=== PATIENT | female | born 1965 | race Caucasian/White ===

== ENCOUNTER → 2018-05-03 16:00 | Outpatient (CLI) | payer MEDICAID, SELFPAY ==
[2018-05-10 10:00] LABS: HPV Reflexed? NOT INDICATED
== END ==
PROVIDERS: Family Provider Family Medicine; PCP Family Medicine; Visit Provider Family Medicine
DX: Z12.4 Encounter for screening for malignant neoplasm of cervix (principal)
CPT/HCPCS: 88175; G0145

== ENCOUNTER → 2018-05-07 06:49 | Outpatient (CLI) | payer MEDICAID, SELFPAY ==
[2018-05-07 07:14] LABS: Absolute Lymphocyte Count 1.78 X10^3/ul (0.83-4.51); Absolute Neutrophil Count 6.5 X10^3/uL (2.0-7.7); Basophil# 0.02 X10^3/uL; Basophil% 0.2 % (0-1); Eosinophil# 0.28 X10^3/uL; Eosinophils% 3.1 % (0-5); Hematocrit 39.4 % (37-47); Hemoglobin 12.3 g/dl (12.0-15.0); Lymphocyte # 1.78 X10^3/ul (4.0); Lymphocyte % 19.6 % (19-41); Mean Corp Hgb Conc 31.2 g/gl (32-36); Mean Corpuscular Hgb 25.4 pg (27.0-32.0); Mean Corpuscular Volume 81.2 fL (81-99); Mean Platelet Vol. 9.1 fl (6.2-12.0); Monocyte# 0.55 X10^3/uL; Neutrophil # 6.45 X10^3/uL (2.7-7.7); Neutrophil % 70.9 % (47-70); Platelet Count 314 K/mm3 (150-450); RBC Distribution Width CV 15.3 % (11.6-14.6); RBC Distribution Width SD 44.6 fl (35.1-43.9); Red Blood Count 4.85 M/mm3 (4.2-5.4); White Blood Count 9.1 K/mm3 (4.4-11.0)
[2018-05-07 07:18] LABS: POSITIVE COUNT NO; POSITIVE DIFFERENTIAL NO; POSITIVE MORPHOLOGY NO
[2018-05-07 07:52] LABS: ALB/GLOB Ratio 0.7 RATIO (0.9-2.4); AST(SGOT) 9 U/L (15-37); Alanine Aminotransfer ALT/SGPT 16 U/L (13-56); Albumin, Serum 3.3 g/dL (3.2-5.0); Alkaline Phosphatase 58 U/L (45-117); Anion Gap 6 (5-15); BUN 15 mg/dL (7-18); BUN/Creat Ratio 19.9 RATIO (10-20); Calcium,Total 8.8 mg/dL (8.5-10.1); Chloride 108 mmol/L (98-107); Cholesterol 150 mg/dL (200); Creatinine, Serum 0.75 mg/dL (0.55-1.02); EST Glomerular Filtration Rate 85 mL/min (>60); Est Glom Filt Rate - Afr Amer 103 mL/min (>60); Globulin 4.7 g/dL (2.2-4.2); Glucose 88 mg/dL (74-106); High Density Lipoprotein 44 mg/dL; Iron 48 ug/dL (50-170); Potassium 4.1 mmol/L (3.5-5.1); Sodium Level 142 mmol/L (136-145); Thyroid Stim Hormone (TSH) 0.64 uIU/mL (0.358-3.74); Triglycerides 78 mg/dL; Very Low Density Lipoprotein 16 mg/dL (5-40)
[2018-05-07 08:45] LABS: Hemoglobin A1c 5.5 % (4.2-6.3)
[2018-05-07 10:01] LABS: Vitamin B12 1708 pg/mL (211-911); Vitamin D,25 Hydroxy 40.6 ng/mL (29.95-100.01)
== END ==
PROVIDERS: Family Provider Family Medicine; PCP Family Medicine; Visit Provider Family Medicine
DX: E03.9 Hypothyroidism, unspecified (principal); R53.83 Other fatigue; E78.5 Hyperlipidemia, unspecified; E53.8 Deficiency of other specified B group vitamins; R73.01 Impaired fasting glucose; G57.52 Tarsal tunnel syndrome, left lower limb; M76.71 Peroneal tendinitis, right leg; M76.61 Achilles tendinitis, right leg; Z51.81 Encounter for therapeutic drug level monitoring
CPT/HCPCS: 36415; 80053; 80061; 82306; 82607; 83036; 83540; 84443; 85025; 97110; 97140

== ENCOUNTER 2018-05-28 08:30 | Outpatient (RCR) | payer MEDICAID, SELFPAY ==
--- NOTE | 2018-04-30 13:07 | HP.PTEVAL_ITS ---
Patient's Visit Information JOHN PÉREZ is a 52 year old F referred to Physical Therapy by Yisel Leija DPM with a diagnosis of L tarsal tunnel, R peroneal and achilles. Date of Evaluation: 04/30/18 Physical Therapist: Ash Curtis DPT, OC - Visit Plan Frequency: 2-3x /Week Duration: 2 Months Plan: 2-3x/week for 6-8 weeks as needed. 1. ROM R ankle, gastroc stretching, peroneal stretching: B ankle strength with TB: STM R ankle and foot: Monitor WB position of R heel(it is in varus and i put a wedge in the lateral heel), TENS with ice as needed. Progress HEP. Also showed her nerve flossing of L peroneals and post LE nerves today, monitor the tolerance and progress. - Subjective Subjective: R pain near achilles and peroneals and sometimes to medial ankle, been there for one month, started conciding with walking TM at [facility] possibly. No original injury. Pain is more lateral 4/10, but gets up to [phone] at end of day. Better at rest but not completely, stilla toothache. L toes numb last 3 toes for years. Had surgery 10 years ago and it has been like that since and has not changed. Has some pain shooting pain intermittently. Sleep: L foot will keep her up sometimes at night but rare. 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 R leg worse after work. Has orthotics for 3 weeks which did not help. Got brace last week and it is hot and she is weaning onto it. Had it on for a long time yesterday and it made foot worse digging into posterior pain. Activities are normal, just worse. Steps really bother R foot. - Pain R achilles/peroneal Pain Intensity (Out of 10): 1 Pain Intensity Range: 1, 9 - Objective Walks I on firm surface with just slight R antalgia today. Varus apparent R heel with more WB on lateral surface, avoids pushoff with R>L. Dons and doffs brace I. Orthotics in place and approriate. Tender to palpation R space between achilles lateral adn peroneals max and some noticeable swelling. AROM R ankle: DF -3 degrees with knees straight and -1 with knee bent. Painful with inv and ev R, PF is good. L AROM 5 degree DF, 55 PF, ev/inv 15 and 25. R Strength R DF 4-, ev/inv 4- with pain, PF 4/5 with pain WB lateral WB. Strength L ankle 4+/5. Sensation diminished L lateral foot into toes. - Goals Goal 1:: Full R ankle aROM without pain Goal Time Frame: 4-6 Weeks Goal 2:: Decrease pain R to 2/10 at worst, No sharp pains in R ankles for one week. Goal Time Frame: 6-8 Weeks Goal 3:: I approp HEp to limit future problems. Goal Time Frame: 6-8 Weeks Goal 4:: Work without increasing pain Goal Time Frame: 6-8 Weeks - Rehabilitation Potential Physical Therapy Diagnosis: R achilles tendonitis, peroneal involvement, L tarsal tunnel. Rehabilitation Potential: Fair - Anticipated Interventions Patient/Client Instruction: Educate patient on: Condition, Plan of Care, Risk Factors For the Purpose of:: To decrease pain, To decrease swelling/inflammation, To increase ROM, To improve performance and independence with ADL's, To improve ability of physical actions for home/community/work/leisure Therapeutic Exercise to Include: Strength training, Flexibilty training, Passive ROM, Active ROM For the Purpose of:: To decrease pain, To decrease swelling/inflammation, To increase ROM, To improve ability of physical actions for home/community/work/ leisure, To improve gait and locomotor functions Manual Therapy Techniques to Include: Soft tissue mobilization Comment: R foot adn ankle For the Purpose of:: To decrease pain, To decrease swelling/inflammation, To increase ROM Comment: placed lateral wedge under heel R shoe, felt better. For the Purpose of:: To decrease pain TENS: Yes Cryotherapy (ice pack, ice massage): Yes For the Purpose of:: To decrease pain, To decrease swelling/inflammation Thank you for the opportunity to evaluate your patient. For Medicare and Medicare HMO plans, please review the plan of care and approve it. It will need to be FAXED BACK to us at [phone] for Medicare purposes. Please let me know if there are questions or concerns regarding this plan of care. Physician Signature: Date:
--- NOTE | 2018-05-28 08:57 | HP.PTREVAL_ITS ---
Yisel Leija DPM, It has been my pleasure to treat JOHN PÉREZ over the last 8 visits for L tarsal tunnel, R peroneal and achilles. Please see the progress note below for an update on the physical therapy plan of care! Subjective: Sees doctor today. Does not hurt as bad and is less severe, no more 7-9/10. Now 4-6/10. Still constant pain and worse with wearing improper shoes despite using orthotics. TEVAs fel better. Doing stretches, stes sstretch and constant movment. Sleep is OK. She is off of work in the summer so has not had to stand constantly. Lateral heel wedge really helped at first. Tingling L foot slightly improved. Objective/Function: Very tender still R peroneals especially at malleoli. ROM is 4 degreed DF knee straight and 5 knee bent on R. No antalgia in gait today but in current shoes, L medial hindoffot collapses, not noticeable barefoot. Orthotics are in place today. OVERALL SLOW IMPROVEMENT, APPROPRIATE TO CONTINUE IF NO OTHER OPTIONS BUT CUSTOM ORTHOTICS SHOULD BE CONSIDERED WELL ANY OTHER INTERVENTIONS THAT MAY HELP PERONEAL INFLAMMATION IN R QUICKLY PATIENT NEEDS TO RETURN TO WORK IN TWO WEEKS. Plan Plan: 3X/WEEK FOR 3 WEEKS AFTER HER VACATION IF STILL DESIRED BY [facility](F/U TODAY) FOR MANUAL AND STIM IF PAIN WORSENS AND PROGRESS TO B ANKLES STRENGTH AND FOOT STRENGTH TO HEP IF BETTER. Goals Goal 1:: Full R ankle aROM without pain Goal Time Frame: 4-6 Weeks Goal Progress: Progressing Goal 2:: Decrease pain R to 2/10 at worst, No sharp pains in R ankles for one week. Goal Time Frame: 6-8 Weeks Goal Progress: Progressing Goal 3:: I approp HEp to limit future problems. Goal Time Frame: 6-8 Weeks Goal Progress: Progressing Goal 4:: Work without increasing pain Goal Time Frame: 6-8 Weeks Goal Progress: NOT YET Anticipated Interventions Patient/Client Instruction: Educate patient on: Condition, Plan of Care, Risk Factors For the Purpose of:: To decrease pain, To decrease swelling/inflammation, To increase ROM, To improve performance and independence with ADL's, To improve ability of physical actions for home/community/work/leisure Therapeutic Exercise to Include: Strength training, Flexibilty training, Passive ROM, Active ROM For the Purpose of:: To decrease pain, To decrease swelling/inflammation, To increase ROM, To improve ability of physical actions for home/community/work/ leisure, To improve gait and locomotor functions Manual Therapy Techniques to Include: Soft tissue mobilization Comment: R foot adn ankle For the Purpose of:: To decrease pain, To decrease swelling/inflammation, To increase ROM Comment: placed lateral wedge under heel R shoe, felt better. For the Purpose of:: To decrease pain TENS: Yes Cryotherapy (ice pack, ice massage): Yes For the Purpose of:: To decrease pain, To decrease swelling/inflammation Please do not hesitate to contact me at [phone] by phone or Fax: if you have questions or concerns regarding this new plan of care! Sincerely, Ash Curtis, DPT, OC
--- NOTE | 2018-09-18 10:58 | HP.PT.NRP ---
HP - Discharge Summary (1) - Patient Information JOHN PÉREZ was seen in my office for initial evaluation on 04/30/18. The following Plan of Care was established for this patient: Initial Frequency: 2-3x /Week Initial Duration: 2 Months - Anticipated Interventions Patient/Client Instruction: Educate patient on: Condition, Plan of Care, Risk Factors For the Purpose of:: To decrease pain, To decrease swelling/inflammation, To increase ROM, To improve performance and independence with ADL's, To improve ability of physical actions for home/community/work/leisure Therapeutic Exercise to Include: Strength training, Flexibilty training, Passive ROM, Active ROM For the Purpose of:: To decrease pain, To decrease swelling/inflammation, To increase ROM, To improve ability of physical actions for home/community/work/leisure, To improve gait and locomotor functions Manual Therapy Techniques to Include: Soft tissue mobilization Comment: R foot adn ankle For the Purpose of:: To decrease pain, To decrease swelling/inflammation, To increase ROM Comment: placed lateral wedge under heel R shoe, felt better. For the Purpose of:: To decrease pain TENS: Yes Cryotherapy (ice pack, ice massage): Yes For the Purpose of:: To decrease pain, To decrease swelling/inflammation This patient was last seen in our office 05/28/18. Pertinent comments regarding their Physical therapy will appear below: Pt seen 8 visits and was doing well. She was to continue for 3 weeks after a vaction she had planned but never returned. At this point, it has been over three months adn I will disocntinue due to nonattendance. At this point I will be discontinuing this patient from physical therapy. I would be happy to see this patient again in the future if found appropriate by the physician. Thank you! Ash Curtis, DPT, OC
== END 2018-05-28 19:00 | disposition home or self-care (01) ==
LOC: PT 08:30
PROVIDERS: Family Provider Family Medicine; PCP Family Medicine; Visit Provider Podiatrist
DX: G57.52 Tarsal tunnel syndrome, left lower limb (principal); M76.61 Achilles tendinitis, right leg; M76.71 Peroneal tendinitis, right leg
CPT/HCPCS: 88175; 97110; 97140; 97162; 97530; G0145

== ENCOUNTER → 2018-07-04 16:10 | Outpatient (CLI) | payer MEDICAID, SELFPAY ==
--- NOTE | 2018-07-04 16:12 | BI_ITS ---
MAMMOGRAPHY - BILATERAL SCREENING REASON FOR EXAM: Female, 53 years old. Routine annual screening examination. PERTINENT HISTORY: Aunt with breast cancer. TECHNIQUE: Digital bilateral breast ирина (3D mammographic acquisition) in the CC and MLO projections. 2-D mediolateral oblique (MLO) and craniocaudad (CC) views of both breasts were obtained. CAD: Full Field Digital Mammography with Computer Added Detection was performed. COMPARISON: Comparison is made with prior examination dated June 29, 2017 and June 20, 2016. FINDINGS: Breast Composition: There are scattered areas of fibroglandular density. There are no dominant masses or suspicious calcifications. Stable benign-appearing bilateral axillary lymph nodes. No other significant abnormalities are identified. There has been no significant change since the prior study. BI/SCREENING MAMM (CAD), BILAT IMPRESSION: Stable bilateral screening mammogram. Yearly follow-up mammogram recommended. (A) ASSESSMENT CATEGORY: BIRADS Category 2: Benign. A letter regarding these results will be sent to the patient by the facility within 30 days. Approximately 10% of breast cancers are not detected by mammography. A normal mammogram should not delay biopsy of a clinically suspicious abnormality. [id number] Electronically Signed: Liborio Meier MD at 12:52 EDT Tel [phone], Service support ,
== END ==
PROVIDERS: Family Provider Family Medicine; PCP Family Medicine; Visit Provider Family Medicine
DX: Z12.31 Encounter for screening mammogram for malignant neoplasm of breast (principal)
CPT/HCPCS: 77063; 77067

== ENCOUNTER → 2018-07-21 08:43 | Outpatient (CLI) | payer MEDICAID, SELFPAY ==
--- NOTE | 2018-07-21 08:45 | MRI_ITS ---
STUDY: MRI RIGHT REARFOOT WITHOUT CONTRAST REASON FOR EXAM: Female, 53 years old. Pain. TECHNIQUE: Standardized fat and water weighted pulse sequences were obtained in all 3 orthogonal planes. COMPARISON: X-ray November 18, 2014. FINDINGS: Normal subcutis adipose space. Normal posterior tibialis tendon. Normal flexor digitorum longus tendon. Normal flexor hallucis longus tendon. Normal peroneus longus and brevis tendons. Normal tibialis anterior tendon. Normal extensor hallucis longus tendon. Normal extensor digitorum longus tendons. There is tendinosis with enthesopathic changes of the teno-osseous insertion of the Achilles tendon. There is partial intrasubstance tearing of the distal tendon, series 4 images -. There is retrocalcaneal bursitis. There is spurring of the posterior superior calcaneus with marrow edema. Normal plantar fascia. Normal plantar calcaneal tubercles. Normal intrinsic muscles of the rearfoot. Normal distal tibiofibular syndesmotic ligamentous complex. Normal lateral ligamentous complex. Normal subtalar ligaments and sinus tarsi. Normal deltoid ligamentous complexes. Normal plantar calcaneonavicular (spring) ligament. Normal tibiotalar articulation. Normal talar dome. There is os trigonum . There is fragmentation and spur adjacent to the calcaneonavicular region suggesting partial tarsal coalition. Normal subtalar articulations. Arthrosis with spurring at the talonavicular articulation. Normal calcaneocuboid articulation. Normal navicular-cuneiform articulations. 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 Electronically Signed: Cheng Taylor MD at 9:55 EDT , Service support ,
== END ==
PROVIDERS: Family Provider Family Medicine; PCP Family Medicine; Referring Provider Podiatrist; Visit Provider Podiatrist
DX: M76.61 Achilles tendinitis, right leg (principal); M76.71 Peroneal tendinitis, right leg; M77.31 Calcaneal spur, right foot; M25.571 Pain in right ankle and joints of right foot
CPT/HCPCS: 73718

== ENCOUNTER 2018-10-07 17:57 | Emergency (ER) | payer MEDICAID, SELFPAY ==
[2018-10-07 17:58] VITALS: BP 160/97; PULSE 75; RESP 16; TEMP 36.6; O2SAT 98; BMI 43.4
--- NOTE | 2018-10-07 18:15 | CT_ITS ---
STUDY: CT FACIAL BONES WITHOUT CONTRAST REASON FOR EXAM: Female, 53 years old. Left facial swelling RADIATION DOSAGE (If Supplied By Facility): CTDIvol = ( 29.38 ) mGy, DLP = ( 547.46 ) mGycm TECHNIQUE: Axial images of the facial bones were obtained. Sagittal and coronal images were reconstructed. Individualized dose optimization techniques were used for this CT. COMPARISON: None. FINDINGS: The left parotid gland is larger than the right with minimal surrounding stranding. There is no evidence of a discrete mass. There is no evidence of orbital floor fracture. There is no fracture seen in the nasal bones or maxillary spine. No fractures are seen in the remaining facial bones. The sinuses are unremarkable. CT/Sinus/Facial Bone IMPRESSION: Findings suggest mild left parotitis. No discrete masses are seen. Electronically Signed: Dina Fernandez MD at 19:17 EST Tel Direct: [phone], Service support ,
[2018-10-07] MEDS: Ceftriaxone 1 GM/50 ML BAG IV (19:03)
--- NOTE | 2018-10-07 19:40 | ED.VISSUMM ---
- ER Visit Summary Date of Service: 10/07/18 Chief Complaint: Left facial swelling History of Present Illness: The patient is a 53 F who presents with left facial swelling that began today. Patient states she noticed that this morning when she woke up. Patient states that there is no gradually gotten worse. Patient states the pain is over the left mandible. Patient states the pain is worse with palpation patient denies any fevers or chills. Patient denies any difficulty breathing or difficulty swallowing. Patient does admit to a cough but denies any sputum. Physical Examination: Vital signs are stable except for mildly elevated blood pressure 160/97. Patient is afebrile. Patient is in no acute distress. Oral mucosa is pink and moist. There is some mild tenderness over the left parotid gland. There is no edema or erythema around Stensen's duct. Oropharynx is clear. Neck is supple. Trachea is midline. There is no JVD noted. Tympanic membranes are clear bilaterally. Heart was regular rate and rhythm. Lungs are clear and equal bilateral. The remaining physical exam is within normal limits. Test Results: CT scan of the facial bones was obtained. There is left parotitis but there is no abscess noted. There is no obstruction noted. Emergency Department Course and Treatment: Patient was instructed to use sialagogues. Patient was instructed to use Tylenol or ibuprofen as needed for pain. Patient was instructed to follow-up with her primary care physician in 5-7 days. Patient was also given follow-up for ENT. Patient was instructed to return if worse in any way. Patient understood and was agreeable with the plan. All questions were answered. Disposition: Discharged home Impression: Left parotitis This note was generated with [employer] dictation software. It may contain incorrect words, spelling, and punctuation that were not noted in review of the chart prior to signing ED Disposition - Plan for ED Patient: Disposition: Home or Assisted Living Chief Complaint: Other, Pain/Inj Diagnosis: Parotitis Instructions: ED Submandibular Gland Infec Referrals: Lisseth Momin DO [Primary Care Provider] - Bhargav Avalos MD [STAFF PHYSICIAN] -
--- NOTE | 2018-10-07 19:50 | ED.DCSUM_ITS ---
- ER Visit Summary Date of Service: 10/07/18 Chief Complaint: Left facial swelling History of Present Illness: The patient is a 53 F who presents with left facial swelling that began today. Patient states she noticed that this morning when she woke up. Patient states that there is no gradually gotten worse. Patient states the pain is over the left mandible. Patient states the pain is worse with palpation patient denies any fevers or chills. Patient denies any difficulty breathing or difficulty swallowing. Patient does admit to a cough but denies any sputum. Physical Examination: Vital signs are stable except for mildly elevated blood pressure 160/97. Patient is afebrile. Patient is in no acute distress. Oral mucosa is pink and moist. There is some mild tenderness over the left parotid gland. There is no edema or erythema around Stensen's duct. Oropharynx is aaron r. Neck is supple. Trachea is midline. There is no JVD noted. Tympanic membranes are clear bilaterally. Heart was regular rate and rhythm. Lungs are clear and equal bilateral. The remaining physical exam is within normal limits. Test Results: CT scan of the facial bones was obtained. There is left parotitis but there is no abscess noted. There is no obstruction noted. Emergency Department Course and Treatment: Patient was instructed to use sialagogues. Patient was instructed to use Tylenol or ibuprofen as needed for pain. Patient was instructed to follow-up with her primary care physician in 5- 7 days. Patient was also given follow-up for ENT. Patient was instructed to return if worse in any way. Patient understood and was agreeable with the plan. All questions were answered. Disposition: Discharged home Impression: Left parotitis This note was generated with [employer] dictation software. It may contain incorrect words, spelling, and punctuation that were not noted in review of the chart prior to signing ED Disposition - Plan for ED Patient: Disposition: Home or Assisted Living Chief Complaint: Other, Pain/Inj Diagnosis: Parotitis Instructions: ED Submandibular Gland Infec Referrals: Lisseth Momin DO [Primary Care Provider] - Bhargav Avalos MD [STAFF PHYSICIAN] -
[2018-10-07 20:58] VITALS: BP 133/86; PULSE 85; RESP 18; O2SAT 92
--- OUTSIDE RECORDS SUMMARY | 2019-01-09 13:45 | XMS RPT_ITS ---
:1965 Author Organization OHIP Care Team Providers Name Role Phone Narinderys, Lisseth Primary Care Unavailable Ash Smith Attending Unavailable IsacconeYisel Attending Unavailable FascioneYisel Referring Unavailable Malys, Lisseth Primary Care Unavailable Malys, Lisseth Attending Unavailable Malys, Lisseth Referring Unavailable Malys, Lisseth Primary Care Unavailable Malys, Lisseth Attending Unavailable Malys, Lisseth Referring Unavailable Malys, Lisseth Primary Care Unavailable Malys, Lisseth Attending Unavailable Malys, Lisseth Referring Unavailable Malys, Lisseth Primary Care Unavailable Yisel Leija Attending Unavailable Fascione, Yisel Referring Unavailable Malemilee, Lisseth Primary Care Unavailable PROBLEMS PROBLEMS DATE TYPE CONDITION / CODE ATTENDING STATUS SOURCE 05/07/2018 Unknown E03.9 - Malys, Lisseth Active [facility] Hypothyroidism, Community unspecified / Hospital E03.9(ICD-10) Repository 05/07/2018 Unknown R53.83 - Other Malys, Lisseth Active [facility] fatigue / Community R53.83(ICD-10) Hospital Repository 05/07/2018 Unknown E78.5 - Malys, Lisseth Active [facility] Hyperlipidemia, Community unspecified / Hospital E78.5(ICD-10) Repository 05/07/2018 Unknown E53.8 - Deficiency Malys, Lisseth Active [facility] of other specified Community B group vitamins / Hospital E53.8(ICD-10) Repository 05/07/2018 Unknown R73.01 - Impaired Malemilee, Lisseth Active [place] fasting glucose / [facility] R73.01(ICD-10) Hospital Repository 05/07/2018 Unknown Z51.81 - Encounter MalLisseth hebert Active [place] for therapeutic [facility] drug level Hospital monitoring / Repository Z51.81(ICD-10) 05/04/2018 Unknown Z12.4 - Encounter MalLisseth hebert Active [facility] for screening for [facility] malignant neoplasm Hospital of cervix / Repository Z12.4(ICD-10) 05/04/2018 Unknown Z01.419 - Encounter MalLisseth hebert Active [place] for gynecological [facility] examination Hospital (general) (routine) Repository without abnormal findings / Z01.419(ICD-10) PROCEDURES PROCEDURES No Procedure Records FoundRESULTS RESULTS EMERGENCY DEPARTMENT Observed: 10/07/2018 Status: F Source: [place] SUMMARY 7:51 PM [facility] REPOSITORY [facility] Medical Records Department [address] [place] [address] Emergency Department Summary 10/07/181939 MR#: [id number] Acct: [id number] Name: NILAM OSULLIVAN Rep #: [id number] : 1965 53 From: Ash Smith DO PCP: Lisseth Momin DO Status: REG ER - ER Visit Summary Date of Service: 10/07/18 Chief Complaint: Left facial swelling History of Present Illness: The patient is a 53 F who presents with left facial swelling that began today. Patient states she noticed that this morning when she woke up. Patient states that there is no gradually gotten worse. Patient states the pain is over the left mandible. Patient states the pain is worse with palpation patient denies any fevers or chills. Patient denies any difficulty breathing or difficulty swallowing. Patient does admit to a cough but denies any sputum. Physical Examination: Vital signs are stable except for mildly elevated blood pressure 160/97. Patient is afebrile. Patient is in no acute distress. Oral mucosa is pink and moist. There is some mild tenderness over the left parotid gland. There is no edema or erythema around Stensen's duct. Oropharynx is clear. Neck is supple. Trachea is midline. There is no JVD noted. Tympanic membranes are clear bilaterally. Heart was regular rate and rhythm. Lungs are clear and equal bilateral. The remaining physical exam is within normal limits. Test Results: CT scan of the facial bones was obtained. There is left parotitis but there is no abscess noted. There is no obstruction noted. Emergency Department Course and Treatment: Patient was instructed to use sialagogues. Patient was instructed to use Tylenol or ibuprofen as needed for pain. Patient was instructed to follow-up with her primary care physician in 5-7 days. Patient was also given follow-up for ENT. Patient was instructed to return if worse in any way. Patient understood and was agreeable with the plan. All questions were answered. Disposition: Discharged home Impression: Left parotitis This note was generated with [employer] dictation software. It may contain incorrect words, spelling, and punctuation that were not noted in review of the chart prior to signing ED Disposition - Plan for ED Patient: Disposition: Home or Assisted Living Chief Complaint: Other, Pain/Inj Diagnosis: Parotitis Instructions: ED Submandibular Gland Infec Referrals: Lisseth Momin DO [Primary Care Provider] - Bhargav Avalos MD [STAFF PHYSICIAN] - What to do if you have Problems For any increased pain, shortness of breath, bleeding, nausea or vomiting, chest pain, or any unexpected problems, contact your Primary Care Provider. Call [facility] ([phone]) or report to the closest Emergency Room. Call 911 if necessary. 10/07/181950 <Electronically signed by Ash Smith DO> Date Ash Smith DO Cosigner Signature (If Indicated): Date CC: Lisseth Momin DO SINUS/FACIAL BONE Observed: 10/07/2018 Status: F Source: [place] 6:16 PM [facility] REPOSITORY [facility] Imaging Services [address] [place] [address] Sinus/Facial Bone MR#: [id number] Acct: [id number] Name: NILAM OSULLIVAN Rep #: [id number] : 1965 F 53 From: Dina Fernandez MD PCP: Lisseth Momin DO Status: REG ER Study: Sinus/Facial Bone Date of Exam: 10/07/18 Exam# [id number] Ordering Dr: Ash Smith DO STUDY: CT FACIAL BONES WITHOUT CONTRAST REASON FOR EXAM: Female, 53 years old. Left facial swelling RADIATION DOSAGE (If Supplied By Facility): CTDIvol = ( 29.38 ) mGy, DLP = ( 547.46 ) mGycm TECHNIQUE: Axial images of the facial bones were obtained. Sagittal and coronal images were reconstructed. Individualized dose optimization techniques were used for this CT. COMPARISON: None. FINDINGS: The left parotid gland is larger than the right with minimal surrounding stranding. There is no evidence of a discrete mass. There is no evidence of orbital floor fracture. There is no fracture seen in the nasal bones or maxillary spine. No fractures are seen in the remaining facial bones. The sinuses are unremarkable. CT/Sinus/Facial Bone IMPRESSION: Findings suggest mild left parotitis. No discrete masses are seen. Electronically Signed: Dina Fernandez MD at 19:17 EST Tel Direct: [phone], Service support , CC: Ash Smith DO; Lisseth Momin DO Lump Maker: Signed LOWER EXT/NO JT/W/O Observed: 07/21/2018 Status: F Source: [facility] 8:48 AM [facility] REPOSITORY [facility] Imaging Services [address] [place] [address] Lower Ext/No Jt/w/o MR#: [id number] Acct: [id number] Name: NILAM OSULLIVAN Rep #: [id number] : 1965 F 53 From: Cheng Taylor MD PCP: Lisseth Momin DO Status: REG CLI Study: Lower Ext/No Jt/w/o Date of Exam: 07/21/18 Exam# [id number] Ordering Dr: Yisel Leija DPM STUDY: MRI RIGHT REARFOOT WITHOUT CONTRAST REASON FOR EXAM: Female, 53 years old. Pain. TECHNIQUE: Standardized fat and water weighted pulse sequences were obtained in all 3 orthogonal planes. COMPARISON: X-ray November 18, 2014. FINDINGS: Normal subcutis adipose space. Normal posterior tibialis tendon. Normal flexor digitorum longus tendon. Normal flexor hallucis longus tendon. Normal peroneus longus and brevis tendons. Normal tibialis anterior tendon. Normal extensor hallucis longus tendon. Normal extensor digitorum longus tendons. There is tendinosis with enthesopathic changes of the teno-osseous insertion of the Achilles tendon. There is partial intrasubstance tearing of the distal tendon, series 4 images -. There is retrocalcaneal bursitis. There is spurring of the posterior superior calcaneus with marrow edema. Normal plantar fascia. Normal plantar calcaneal tubercles. Normal intrinsic muscles of the rearfoot. Normal distal tibiofibular syndesmotic ligamentous complex. Normal lateral ligamentous complex. Normal subtalar ligaments and sinus tarsi. Normal deltoid ligamentous complexes. Normal plantar calcaneonavicular (spring) ligament. Normal tibiotalar articulation. Normal talar dome. There is os trigonum . There is fragmentation and spur adjacent to the calcaneonavicular region suggesting partial tarsal coalition. Normal subtalar articulations. Arthrosis with spurring at the talonavicular articulation. Normal calcaneocuboid articulation. Normal navicular-cuneiform articulations. 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 Electronically Signed: Cheng Taylor MD at 9:55 EDT , Service support , CC: Yisel Leija DPM; Lisseth Momin DO Lump Maker: Signed SCREENING MAMM (CAD), Observed: 07/04/2018 Status: F Source: [facility] 4:12 PM [facility] REPOSITORY [facility] Imaging Services [address] [place] [address] SCREENING MAMM (CAD), BILAT MR#: [id number] Acct: [id number] Name: NILAM OSULLIVAN N[place] Rep #: [id number] : 1965 F 53 From: Liborio Meier MD PCP: Lisseth Momin DO Status: REG CLI Study: SCREENING MAMM (CAD), BILAT Date of Exam: 07/04/18 Exam# [id number] Ordering Dr: Lisseth Momin DO MAMMOGRAPHY - BILATERAL SCREENING REASON FOR EXAM: Female, 53 years old. Routine annual screening examination. PERTINENT HISTORY: Aunt with breast cancer. TECHNIQUE: Digital bilateral breast ирина (3D mammographic acquisition) in the CC and MLO projections. 2-D mediolateral oblique (MLO) and craniocaudad (CC) views of both breasts were obtained. CAD: Full Field Digital Mammography with Computer Added Detection was performed. COMPARISON: Comparison is made with prior examination dated June 29, 2017 and June 20, 2016. FINDINGS: Breast Composition: There are scattered areas of fibroglandular density. There are no dominant masses or suspicious calcifications. Stable benign-appearing bilateral axillary lymph nodes. No other significant abnormalities are identified. There has been no significant change since the prior study. BI/SCREENING MAMM (CAD), BILAT IMPRESSION: Stable bilateral screening mammogram. Yearly follow-up mammogram recommended. (A) ASSESSMENT CATEGORY: BIRADS Category 2: Benign. A letter regarding these results will be sent to the patient by the facility within 30 days. Approximately 10% of breast cancers are not detected by mammography. A normal mammogram should not delay biopsy of a clinically suspicious abnormality. [id number] Electronically Signed: Liborio Meier MD at 12:52 EDT Tel [phone], Service support , CC: Lisseth Momin DO Lump Maker: Signed RE-EVALUATION - PT (1) Observed: 05/28/2018 Status: F Source: [facility] 8:57 AM [facility] REPOSITORY [facility] Physical Therapy [facility] [facility]. [address] [place] [address] Fax REEVALUATION / MEDICARE RECERTIFICATION PHYSICAL THERAPY MR#: [id number] Acct: [id number] Name: NILAM OSULLIVAN Rep #: [id number] : 1965 53 From: Ash Curtis DPT, OCS, CSCS Referring DrAyan: Yisel Fascione DPM Status: REG RCR Insurance: [facility] SELF PAY INSURANCE Yisel Heladio, DPM, It has been my pleasure to treat NILAM OSULLIVAN over the last 8 visits for L tarsal tunnel, R peroneal and achilles. Please see the progress note below for an update on the physical therapy plan of care! Subjective: Sees doctor today. Does not hurt as bad and is less severe, no more 7-9/10. Now 4-6/10. Still constant pain and worse with wearing improper shoes despite using orthotics. TEVAs fel better. Doing stretches, stes sstretch and constant movment. Sleep is OK. She is off of work in the summer so has not had to stand constantly. Lateral heel wedge really helped at first. Tingling L foot slightly improved. Objective/Function: Very tender still R peroneals especially at malleoli. ROM is 4 degreed DF knee straight and 5 knee bent on R. No antalgia in gait today but in current shoes, L medial hindoffot collapses, not noticeable barefoot. Orthotics are in place today. OVERALL SLOW IMPROVEMENT, APPROPRIATE TO CONTINUE IF NO OTHER OPTIONS BUT CUSTOM ORTHOTICS SHOULD BE CONSIDERED WELL ANY OTHER INTERVENTIONS THAT MAY HELP PERONEAL INFLAMMATION IN R QUICKLY PATIENT NEEDS TO RETURN TO WORK IN TWO WEEKS. Plan Plan: 3X/WEEK FOR 3 WEEKS AFTER HER VACATION IF STILL DESIRED BY MONIOTR(F/U TODAY) FOR MANUAL AND STIM IF PAIN WORSENS AND PROGRESS TO B ANKLES STRENGTH AND FOOT STRENGTH TO HEP IF BETTER. Goals Goal 1:: Full R ankle aROM without pain Goal Time Frame: 4-6 Weeks Goal Progress: Progressing Goal 2:: Decrease pain R to 2/10 at worst, No sharp pains in R ankles for one week. Goal Time Frame: 6-8 Weeks Goal Progress: Progressing Goal 3:: I approp HEp to limit future problems. Goal Time Frame: 6-8 Weeks Goal Progress: Progressing Goal 4:: Work without increasing pain Goal Time Frame: 6-8 Weeks Goal Progress: NOT YET Anticipated Interventions Patient/Client Instruction: Educate patient on: Condition, Plan of Care, Risk Factors For the Purpose of:: To decrease pain, To decrease swelling/inflammation, To increase ROM, To improve performance and independence with ADL's, To improve ability of physical actions for home/community/work/leisure Therapeutic Exercise to Include: Strength training, Flexibilty training, Passive ROM, Active ROM For the Purpose of:: To decrease pain, To decrease swelling/inflammation, To increase ROM, To improve ability of physical actions for home/community/work/leisure, To improve gait and locomotor functions Manual Therapy Techniques to Include: Soft tissue mobilization Comment: R foot adn ankle For the Purpose of:: To decrease pain, To decrease swelling/inflammation, To increase ROM Comment: placed lateral wedge under heel R shoe, felt better. For the Purpose of:: To decrease pain TENS: Yes Cryotherapy (ice pack, ice massage): Yes For the Purpose of:: To decrease pain, To decrease swelling/inflammation Please do not hesitate to contact me at [phone] by phone or if you have questions or concerns regarding this new plan of care! Sincerely, Ash Curtis, DPT, OC <Electronically signed by Ash Curtis DPT, OCS, CSCS> 05/28/18 0857 CC: Yisel Leija DPM; Lisseth Momin DO EBG Signed For Medicare only, by signing this I certify the plan of care. Physicians Signature Date CBC W/DIFF, AUTOMATED Collected: 05/07/2018 Status: F Source: [place] 6:52 AM [facility] REPOSITORY TYPE CODE TESTS RESULT OUT OF RANGE REFERENCE UNITS LAB L100.1000 4.4-11.0 K/mm3 Normal WBC 9.1 LAB L100.1200 4.2-5.4 M/mm3 Normal RBC 4.85 LAB L100.1300 12.0-15.0 g/dl Normal HGB 12.3 LAB L100.1400 37-47 % Normal HCT 39.4 LAB L100.1500 81-99 fL Normal MCV 81.2 LAB L100.1600 27.0-32.0 pg Low MCH 25.4 LAB L100.1700 32-36 g/gl Low MCHC 31.2 LAB L100.1810 11.6-14.6 % High RDW CV 15.3 LAB L100.1820 35.1-43.9 fl High RDW SD 44.6 LAB L100.1900 150-450 K/mm3 Normal PLT 314 LAB L100.2000 6.2-12.0 fl Normal MPV 9.1 LAB L100.2100 47-70 % High NEUT% 70.9 LAB L100.2200 19-41 % Normal LY% 19.6 LAB L100.2300 0-10 % Normal MONO% 6.0 LAB L100.2400 0-5 % Normal EO% 3.1 LAB L100.2500 0-1 % Normal BASO% 0.2 LAB L100.2550 0.0-0.9 % Normal IM GRAN % 0.200 Result Comment: IG% - Immature Granulocytes (promyelocytes, myelocytes and metamyelocytes) > 1% indicates that a LEFT SHIFT is Present. LAB L100.2620 2.0-7.7 X10 3/uL Normal Absolute Neut 6.5 LAB L100.2720 0.83-4.51 X10 3/ul Normal Absolute Lymph 1.78 Performed By: #### L100.0100 #### [facility] [address] [place], [address] COMPREHENSIVE METABOLIC Collected: 05/07/2018 Status: F Source: [facility] 6:52 AM [facility] REPOSITORY TYPE CODE TESTS RESULT OUT OF RANGE REFERENCE UNITS LAB L501.0100 74-106 mg/dL Normal GLU 88 Result Comment: Please note revised GLUCOSE reference range effective 2017. LAB L501.1000 7-18 mg/dL Normal BUN 15 LAB L501.1100 0.55-1.02 mg/dL Normal CREAT,SERUM 0.75 Result Comment: The validity of the calculated GFR AND GFRAA in patients over 70 years has not been determined. Clinical correlation is essential. LAB L501.1110 >60 mL/min Normal EST GFR 85 Result Comment: Non- GFR Calc LAB L501.1115 >60 mL/min Normal EST GFR - AA 103 Result Comment: GFR Calc LAB L501.1300 10-20 RATIO Normal BUN/CRE 19.9 LAB L501.1500 6.4-8.2 g/dL T Normal PROT 8.0 LAB L501.1800 3.2-5.0 g/dL Normal ALB 3.3 LAB L501.1950 2.2-4.2 g/dL High GLOB 4.7 LAB L501.2000 0.9-2.4 RATIO Low A/G 0.7 LAB L501.2200 8.5-10.1 mg/dL CA Normal 8.8 LAB L501.4100 15-37 U/L Low AST 9 LAB L501.4305 45-117 U/L Normal ALK P 58 LAB L501.4405 13-56 U/L Normal ALT 16 LAB L501.4600 0.20-1.00 mg/dL T Normal BILI 0.30 LAB L501.5300 136-145 mmol/L NA Normal 142 LAB L501.5600 3.5-5.1 mmol/L K Normal 4.1 LAB L501.5900 98-107 mmol/L High CL 108 LAB L501.6100 21.0-32.0 mmol/L Normal CO2 28.0 LAB L501.6200 5-15 Normal GAP 6 Performed By: #### L500.4050, L500.4100, L501.9520, L503.6150 #### [facility] [address] [place], [place], [address] LIPID PROFILE Collected: 05/07/2018 Status: F Source: [place] 6:52 AM [facility] REPOSITORY TYPE CODE TESTS RESULT OUT OF RANGE REFERENCE UNITS LAB L501.4900 200 mg/dL Normal CHOL 150 Result Comment: <200 mg/dL Desirable 200-240 mg/dL Borderline >240 mg/dL High Risk LAB L501.5000 mg/dL Normal TRIG 78 Result Comment: The drugs N-Acetylcysteine and Metamizole may falsely depress this assay. Serum Triglycerides Reference Interval Normal <150 mg/dL Borderline high 150 - 199 mg/dL High 200 - 499 mg/dL Very High > or = 500 mg/dL LAB L501.6400 mg/dL Normal HDL 44 Result Comment: The drugs N-Acetylcysteine and Metamizole may falsely depress this assay. Reference Range HDL <40 mg/dL Low HDL Cholesterol HDL >or= 60 mg/dL High HDL Cholesterol LAB L501.6500 0-130 mg/dL Normal LDL 90 LAB L501.6600 5-40 mg/dL Normal VLDL 16 Performed By: #### L500.4050, L500.4100, L501.9520, L503.6150 #### [facility] [address] [place], [address] THYROID STIM HORMONE Collected: 05/07/2018 Status: F Source: [place] ([facility]) 6:52 AM [facility] REPOSITORY TYPE CODE TESTS RESULT OUT OF RANGE REFERENCE UNITS LAB L501.9520 0.358-3.74 uIU/mL Normal TSH 0.64 Performed By: #### L500.4050, L500.4100, L501.9520, L503.6150 #### [facility] [address] [place], [address] IRON Collected: 05/07/2018 Status: F Source: [place] 6:52 AM [facility] REPOSITORY TYPE CODE TESTS RESULT OUT OF RANGE REFERENCE UNITS LAB L503.6150 50-170 ug/dL Low IRON 48 Performed By: #### L500.4050, L500.4100, L501.9520, L503.6150 #### [facility] [address] [place], [address] HEMOGLOBIN A1C Collected: 05/07/2018 Status: F Source: [place] 6:52 AM [facility] REPOSITORY TYPE CODE TESTS RESULT OUT OF RANGE REFERENCE UNITS LAB L501.9985 4.2-6.3 % Normal HGB A1C 5.5 Performed By: #### L501.9985 #### [facility] [address] [place], [address] VITAMIN B12 Collected: 05/07/2018 Status: F Source: [place] 6:52 AM [facility] REPOSITORY TYPE CODE TESTS RESULT OUT OF REFERENCE UNITS RANGE LAB L503.0105 211-911 pg/mL High Vitamin B12 1708 Performed By: #### L503.0105, L506.1000 #### [facility] [address] [place], [address] VITAMIN D,25 HYDROXY Collected: 05/07/2018 Status: F Source: [place] 6:52 AM [facility] REPOSITORY TYPE CODE TESTS RESULT OUT OF RANGE REFERENCE UNITS LAB L506.1000 29.95-100.01 ng/mL Normal Vitamin D 40.6 25-OH Result Comment: Vitamin D 25(OH) Status Range Deficiency <20 ng/mL (50nmol/L) Insuffciency 20 - 30 ng/mL (50 - 75 nmol/L) Sufficiency 30 - 100 ng/mL (75 - 250 nmol/L) Toxicity >100 ng/mL (>250 nmol/L) Performed By: #### L503.0105, L506.1000 #### [facility] [address] 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 of containers..01 ThinPrep Vial TYPE CODE TESTS RESULT OUT OF RANGE REFERENCE UNITS LAB L7400.0800 . Normal DIAGN Comment Result Comment: NEGATIVE FOR INTRAEPITHELIAL LESION AND MALIGNANCY. LAB L7400.0900 . Normal ADEQ Comment Result Comment: Satisfactory for evaluation. Endocervical and/or squamous metaplastic cells (endocervical component) are present. LAB L7400.1400 . Normal PERFORM Comment Result Comment: Aime Phan, Hat Conditioner (ASCP) LAB L7400.2575 . Normal TEST METHOD Comment Result Comment: This liquid based ThinPrep(R) pap test was screened with the use of an image guided system. LAB L7400.2600 . Normal . COMM LAB L7400.2700 . Normal PAPSMR Comment Result Comment: The Pap smear is a screening test designed to aid in the detection of premalignant and malignant conditions of the uterine cervix. It is not a diagnostic procedure and should not be used as the sole means of detecting cervical cancer. Both false-positive and false-negative reports do occur. LAB L7400.2800 . Normal HPV RFLX Comment Result Comment: The HPV DNA reflex criteria were not met with this specimen result therefore, no HPV testing was performed. Performed at: [facility] [address] [place] [id number] Embroiderer: Myriam Patel MD, Phone: [phone] Performed By: #### L7400.0355 #### [facility] (refer to report for specific site) refer to report for address and phone number INITAL EVALUATION (1) Observed: 05/01/2018 Status: F Source: [place] - PT 9:21 AM [facility] REPOSITORY [facility] [address] [place] [address] Fax REHABILITATION SERVICES INITIAL EVALUATION MR#: [id number] Acct: [id number] Name: NILAM OSULLIVAN Rep #: [id number] : 1965 52 From: Ash Curtis DPT, OCS, CSCS Referring Dr.: Yisel Leija DPM Status: REG RCR Insurance: [facility] SELF PAY INSURANCE Patient's Visit Information NILAM OSULLIVAN is a 52 year old F referred to Physical Therapy by Yisel Leija DPM with a diagnosis of L tarsal tunnel, R peroneal and achilles. Date of Evaluation: 04/30/18 Physical Therapist: Ahs Curtis DPT, OC - Visit Plan Frequency: 2-3x /Week Duration: 2 Months Plan: 2-3x/week for 6-8 weeks as needed. 1. ROM R ankle, gastroc stretching, peroneal stretching: B ankle strength with TB: STM R ankle and foot: Monitor WB position of R heel(it is in varus and i put a wedge in the lateral heel), TENS with ice as needed. Progress HEP. Also showed her nerve flossing of L peroneals and post LE nerves today, monitor the tolerance and progress. - Subjective Subjective: R pain near achilles and peroneals and sometimes to medial ankle, been there for one month, started conciding with walking TM at [employer] possibly. No original injury. Pain is more lateral 4/10, but gets up to 6-910 at end of day. Better at rest but not completely, stilla toothache. L toes numb last 3 toes for years. Had surgery 10 years ago and it has been like that since and has not changed. Has some pain shooting pain intermittently. Sleep: L foot will keep her up sometimes at night but rare. 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 R leg worse after work. Has orthotics for 3 weeks which did not help. Got brace last week and it is hot and she is weaning onto it. Had it on for a long time yesterday and it made foot worse digging into posterior pain. Activities are normal, just worse. Steps really bother R foot. - Pain R achilles/peroneal Pain Intensity (Out of 10): 1 Pain Intensity Range: 1, 9 - Objective Walks I on firm surface with just slight R antalgia today. Varus apparent R heel with more WB on lateral surface, avoids pushoff with R>L. Dons and doffs brace I. Orthotics in place and approriate. Tender to palpation R space between achilles lateral adn peroneals max and some noticeable swelling. AROM R ankle: DF -3 degrees with knees straight and -1 with knee bent. Painful with inv and ev R, PF is good. L AROM 5 degree DF, 55 PF, ev/inv 15 and 25. R Strength R DF 4-, ev/inv 4- with pain, PF 4/5 with pain WB lateral WB. Strength L ankle 4+/5. Sensation diminished L lateral foot into toes. - Goals Goal 1:: Full R ankle aROM without pain Goal Time Frame: 4-6 Weeks Goal 2:: Decrease pain R to 2/10 at worst, No sharp pains in R ankles for one week. Goal Time Frame: 6-8 Weeks Goal 3:: I approp HEp to limit future problems. Goal Time Frame: 6-8 Weeks Goal 4:: Work without increasing pain Goal Time Frame: 6-8 Weeks - Rehabilitation Potential Physical Therapy Diagnosis: R achilles tendonitis, peroneal involvement, L tarsal tunnel. Rehabilitation Potential: Fair - Anticipated Interventions Patient/Client Instruction: Educate patient on: Condition, Plan of Care, Risk Factors For the Purpose of:: To decrease pain, To decrease swelling/inflammation, To increase ROM, To improve performance and independence with ADL's, To improve ability of physical actions for home/community/work/leisure Therapeutic Exercise to Include: Strength training, Flexibilty training, Passive ROM, Active ROM For the Purpose of:: To decrease pain, To decrease swelling/inflammation, To increase ROM, To improve ability of physical actions for home/community/work/leisure, To improve gait and locomotor functions Manual Therapy Techniques to Include: Soft tissue mobilization Comment: R foot adn ankle For the Purpose of:: To decrease pain, To decrease swelling/inflammation, To increase ROM Comment: placed lateral wedge under heel R shoe, felt better. For the Purpose of:: To decrease pain TENS: Yes Cryotherapy (ice pack, ice massage): Yes For the Purpose of:: To decrease pain, To decrease swelling/inflammation Thank you for the opportunity to evaluate your patient. For Medicare and Medicare HMO plans, please review the plan of care and approve it. It will need to be FAXED BACK to us at [phone] for Medicare purposes. Please let me know if there are questions or concerns regarding this plan of care. Physician Signature: Date: <Electronically signed by Ash Curtis DPT, OCS, CSCS> 05/01/18920 CC: Yisel Leija DPM; Lisseth Momin DO EBG Signed For Medicare only, by signing this I certify the plan of care. Physicians Signature Date ALLERGIES ALLERGIES DATE TYPE / CODE NAME / CODE REACTION SEVERITY SOURCE 10/07/2018 Drug No Known Unknown Jamee [facility] Allergy/4160 Allergies/F00 [facility] 60674(SNOMED [id number](RXNOR Repository CT) M) ENCOUNTERS ENCOUNTERS ADMIT/DISCHARGE ACCOUNT ADMITTING ENCOUNTER LOCATION SOURCE NUMBER CLASS 10/07/2018/ [id number] Emergency Hartman Hartman 8 8 [facility] ing:ED Repository 07/21/2018 [id number] Ambulatory Jamee Hartman 0 [facility] ing:MRI Repository 07/04/2018 [id number] Ambulatory Jamee Hartman 2 [facility] ing:OPBI Repository 05/28/2018/ [id number] Ambulatory Jamee Hartman 8 6 [facility] ing:PT Repository 05/07/2018 [id number] Ambulatory Hartman Jamee 2 [facility] ing:LAB Repository 05/03/2018 [id number] Ambulatory Jamee Jamee 4 [facility] ing:LABSPEC Repository PAYERS PAYERS ENCOUNTER GUARANTOR PAYER SUBSCRIBER SOURCE 10/07/2018 Nilam L Primary Nilam L Jamee [id number] Insurance:[facility]INS [facility] [address] PLANPolicy Number: Repository [id number]: [id number] [phone] () Date:[id number] [address] [address]ZX: 10/07/2018 Secondary NOT GIVENUNK Jamee Insurance:SELF PAY [facility] Number: Effective Repository Date:2018-10-07 07/21/2018 Nilam L Primary Nilam L Jamee [id number] Insurance:LUCAMEGHANNahum OsullivanB: [address] PLANPolicy Number: Repository [id number]: [id number] [phone] () Date:8219-54-80QJ [address] [place] [address]SM: 07/21/2018 Secondary NOT GIVENUNK Jamee Insurance:SELF PAY [facility] Number: Effective Repository Date:2018-07-17 07/04/2018 Nilam L Primary Nilam L Jamee [id number] Insurance:LUCAEYE BetoDOB: [address] PLANPolicy Number: Repository [id number]: ([phone] [id number] [phone] (HP) Date:[id number] [address] [place] [address] [place] [address]RG: 07/04/2018 Secondary NOT GIVENUNK Jamee Insurance:SELF PAY [facility] Effective Repository Date:2018-06-14 05/28/2018 Nilam L Primary Nilam L Jamee [id number] Insurance:LUCAEYE BetoDOB: [facility] [id number] PLANPolicy Number: Repository [id number]: [id number] [phone] (HP) Date:2712-62-26ZQ [address] [place] [address] 94509DB: 05/28/2018 Secondary NOT GIVENUNK Hartman Insurance:SELF PAY [facility] Number: Effective Repository Date:2018-04-27 05/07/2018 Nilam L Primary Nilam L Hartman [id number] Insurance:LUCAEYE BetoDOB: [facility] [id number] PLANPolicy Number: Repository [id number]: [id number] [phone] (HP) Date:1874-83-99SF [address] [place] [address] 23027IF: 05/07/2018 Secondary NOT GIVENUNK Jamee Insurance:SELF PAY [facility] Number: Effective Repository Date:2018-05-07 05/03/2018 Nilam L Primary Nilam L Jamee [id number] Insurance:LUCAEYE BetoDOB: [facility] [id number] PLANPolicy Number: Repository [id number]: [id number] [phone] (HP) Date:9700-68-09FD [address] [place] [address] 84938ZW: 05/03/2018 Secondary NOT GIVENUNK Jamee Insurance:SELF PAY [facility] Number: Effective Repository Date:2018-05-03
== END 2018-10-07 21:30 | disposition home or self-care (01) ==
PROVIDERS: Emergency Provider Emergency Medicine; Family Provider Family Medicine; PCP Family Medicine
DX: K11.20 Sialoadenitis, unspecified (principal); F32.9 Major depressive disorder, single episode, unspecified; Z79.899 Other long term (current) drug therapy
CPT/HCPCS: 70486; 96365; 96367; 99282; J7050; A4216

== ENCOUNTER → 2019-07-23 | Outpatient (CLI) | payer MEDICAID, SELFPAY ==
[2019-07-15 15:47] VITALS: BMI 43.2
--- NOTE | 2019-07-23 15:53 | BI_ITS ---
MAMMOGRAPHY - BILATERAL SCREENING REASON FOR EXAM: Female, 54 years old. Routine annual screening examination. PERTINENT HISTORY: Aunt with breast cancer. TECHNIQUE: Digital bilateral breast satinder (3D mammographic acquisition) in the CC and MLO projections. 2-D mediolateral oblique (MLO) and craniocaudad (CC) views of both breasts were obtained. CAD: Full Field Digital Mammography with Computer Added Detection was performed. COMPARISON: Comparison is made with prior study date July 04, 2018 and June 29, 2017. FINDINGS: Breast Composition: There are scattered areas of fibroglandular density. There are no dominant masses or suspicious calcifications. Stable appearance of the benign appearing bilateral axillary lymph nodes. No other significant abnormalities are identified. There has been no significant change since the prior study. BI/SCREEN MAMM (CAD) W/SATINDER BILAT IMPRESSION: Stable bilateral screening mammogram. Yearly follow-up mammogram recommended. (A) ASSESSMENT CATEGORY: BIRADS Category 2: Benign. A letter regarding these results will be sent to the patient by the facility within 30 days. Approximately 10% of breast cancers are not detected by mammography. A normal mammogram should not delay biopsy of a clinically suspicious abnormality. [id number] Electronically Signed: Liborio Meier, at 8:45 EDT , Service support ,
== END | disposition home or self-care (01) ==
LOC: OPBI 15:51
PROVIDERS: Family Provider Family Medicine; PCP Family Medicine; Referring Provider Family Medicine; Visit Provider Family Medicine
DX: Z12.31 Encounter for screening mammogram for malignant neoplasm of breast (principal)
CPT/HCPCS: 77063; 77067

== ENCOUNTER 2019-08-04 12:09 | Emergency (ER) | payer MEDICAID, SELFPAY ==
[2019-07-15 15:47] VITALS: BMI 43.2
[2019-08-04 12:11] VITALS: BP 150/76; PULSE 77; RESP 14; TEMP 36.8; O2SAT 97; BMI 44.1
--- NOTE | 2019-08-04 12:21 | ED.DCSUM_ITS ---
History of Present Illness Chief Complaint: Chest Other Detail of Chief Complaint: Right rib pain Informant: Patient Onset: Days - 5 days Current Severity: Moderate Maximum Severity: Moderate Narrative: Patient presents with pain to her right lateral rib. She saw her chiropractor last Monday and had an adjustment. She states she felt sudden pain in her right lateral ribs but thought it was from them cracking her back. She is continued to have pain since that time. She been taking naproxen on a regular basis without improvement. She has increased pain with deep breath. She believes that she had broken ribs on the right in the past from coughing. Past Medical History - Allergies and Home Meds Allergies/Adverse Reactions: Allergies No Known Allergies Allergy (Verified 08/04/19 12:11) Primary Care Physician: Lisseth Momin DO [Primary Care Provider] - Doctors: Dr. Godinez Prior records reviewed: Yes Past Medical History: - - Reviewed Smoking Status: Former smoker Review of Systems General: Denies: Chills, Fever Eyes: Denies: Visual changes - bilaterally ENT: Denies: Bilateral ear pain Cardiovascular: Reports: Chest pain - Right lateral ribs. Denies: Palpitations, Heart racing Respiratory: Reports: Dyspnea - Pain with deep breath, Cough, Sputum - Clear sputum Gastrointestinal: Reports: Nausea. Denies: Abdominal pain, Vomiting Genitourinary: Denies: Dysuria Skin: Denies: Rash, Wounds Neurological: Denies: Headache Hematologic: Denies: Easy bruising Allergy: Denies: Uticaria Physical Exam Vital Signs/Narrative: Vital Signs Temp Pulse Resp BP Pulse Ox 08/04/19 12:11 98.3 F 77 14 150/76 H 97 Inital Vital Signs reviewed: Yes General: Well nourished, Well developed Head: Normocephalic ENT: Moist mucous membranes Neck: Supple Cardiovascular: Regular rate, Regular rhythm Respiratory: No distress, CTA bilaterally, Chest tenderness - Right lateral chest wall tenderness. No crepitus. Abdomen: Soft, Nontender Back: Normal Inspection Extremities: Nontender Skin: Normal color Neurological: Alert, Oriented x3 Psychological: Normal affect Diagnostic/Tx/Re-eval Impressions Ribs w/Chest X-Ray 08/04/19 12:30 08/04/19 12:30 Ribs Uni Min 3V w/PA Chest [RAD] Stat FINDINGS -no definite evidence for acute right-sided rib fractures. Overall alignment appears satisfactory. No lung consolidation, pleural effusion or pneumothorax. Cardiac size is within normal limits. Osseous structures demonstrate no acute abnormalities. IMPRESSION: No acute cardiopulmonary pathology. No definite evidence for acute right-sided rib fractures. Electronically Signed: Amandeep Shearer, at 12:50 EDT Tel , Service support , - Medical Decision Making Patient was given one half of Ingomar along with Zofran here. On repeat evaluation she is resting more comfortably. Test results are discussed with her. There is no obvious sign of displaced rib fracture. She will be given a short course of Ingomar at home and will continue naproxen. ED Disposition - Plan for ED Patient: Disposition: Home or Assisted Living Diagnosis: Contusion of rib on right side Instructions: RIB: CONTUSION vs MINOR FRACTURE Prescriptions: Hydrocodone Bitart/Apap 5-325 [Ingomar 5MG-325MG] 1 tablet PO Q6H PRN PRN 3 Days #10 tablet PRN Reason: Pain Referrals: Lisseth Momin DO [Primary Care Provider] - 1 Week if not improving
[2019-08-04] MEDS: Ondansetron ODT 4 MG Tablet PO (12:23)
[2019-08-04] MEDS: HYDROcodone Bitartrate/Apap 5/325 Tablet PO (12:23)
--- NOTE | 2019-08-04 12:30 | RAD_ITS ---
STUDY: X-RAY - UNILATERAL RIBS ( RIGHT ) WITH CHEST REASON FOR EXAM: Female, 54 years old. Right sided rib pain TECHNIQUE - RIBS: 4 view(s) of the ribs. TECHNIQUE - CHEST: Single COMPARISON: None. FINDINGS -no definite evidence for acute right-sided rib fractures. Overall alignment appears satisfactory. No lung consolidation, pleural effusion or pneumothorax. Cardiac size is within normal limits. Osseous structures demonstrate no acute abnormalities. IMPRESSION: No acute cardiopulmonary pathology. No definite evidence for acute right-sided rib fractures. Electronically Signed: Amandeep Shearer, at 12:50 EDT Tel , Service support , RAD/Ribs Uni Min 3V w/PA Chest
== END 2019-08-04 13:15 | disposition home or self-care (01) ==
LOC: ED 13:06
PROVIDERS: Emergency Provider Emergency Medicine; Family Provider Family Medicine; PCP Family Medicine
DX: S20.211A Contusion of right front wall of thorax, initial encounter (principal); Z87.891 Personal history of nicotine dependence; Y84.8 Other medical procedures as the cause of abnormal reaction of the patient, or of later complication, without mention of misadventure at the time of the procedure; Y92.531 Health care provider office as the place of occurrence of the external cause; Y93.89 Activity, other specified; Y99.9 Unspecified external cause status
CPT/HCPCS: 71101; 99283

== ENCOUNTER → 2019-11-01 16:05 | Outpatient (CLI) | payer MEDICAID, SELFPAY ==
[2019-11-01 17:01] LABS: Absolute Lymphocyte Count 2.16 X10^3/uL (0.83-4.51); Absolute Neutrophil Count 8.5 X10^3/uL (2.0-7.7); Basophil# 0.06 X10^3/uL; Basophil% 0.5 % (0-1); Eosinophils% 3.4 % (0-5); Hematocrit 39.6 % (37-47); Hemoglobin 12.5 g/dL (12.0-15.0); Lymphocyte # 2.16 X10^3/ul (4.0); Lymphocyte % 18.1 % (19-41); Mean Corp Hgb Conc 31.6 g/dL (32-36); Mean Corpuscular Hgb 26.4 pg (27.0-32.0); Mean Corpuscular Volume 83.7 fL (81-99); Mean Platelet Vol. 9.4 fl (6.2-12.0); Monocyte# 0.68 X10^3/uL; Monocyte% 5.7 % (0-10); NRBC Flagged by Analyzer 0 % (0-5); Neutrophil # 8.54 X10^3/uL (2.7-7.7); Neutrophil % 71.5 % (47-70); Platelet Count 368 K/mm3 (150-450); RBC Distribution Width CV 15.2 % (11.6-14.6); RBC Distribution Width SD 46.4 fl (35.1-43.9); Red Blood Count 4.73 M/mm3 (4.2-5.4); White Blood Count 11.9 K/mm3 (4.4-11.0)
[2019-11-01 17:14] LABS: ALB/GLOB Ratio 0.7 RATIO (0.9-2.4); AST(SGOT) 9 U/L (15-37); Alanine Aminotransfer ALT/SGPT 21 U/L (13-56); Albumin, Serum 3.4 g/dL (3.2-5.0); Alkaline Phosphatase 69 U/L (45-117); Anion Gap 2 (5-15); BUN 21 mg/dL (7-18); BUN/Creat Ratio 24.2 RATIO (10-20); Calcium,Total 9.2 mg/dL (8.5-10.1); Chloride 106 mmol/L (98-107); Creatinine, Serum 0.87 mg/dL (0.55-1.02); EST Glomerular Filtration Rate 72 mL/min (>60); Est Glom Filt Rate - Afr Amer 88 mL/min (>60); Globulin 4.8 g/dL (2.2-4.2); Glucose 77 mg/dL (74-106); Potassium 3.8 mmol/L (3.5-5.1); Protein, Total 8.2 g/dL (6.4-8.2); Sodium Level 139 mmol/L (136-145)
== END ==
PROVIDERS: Family Provider Family Medicine; PCP Family Medicine; Visit Provider Family Medicine
DX: Z01.818 Encounter for other preprocedural examination (principal)
CPT/HCPCS: 36415; 80053; 85025

== ENCOUNTER 2019-11-15 16:12 | Inpatient (IN) | payer MEDICAID, SELFPAY ==
[2019-11-15] VITALS (11 sets, daily range): BP systolic 104–178; BP diastolic 53–97; PULSE 59–73; RESP 16–18; TEMP 36.5–37.8; O2SAT 94–100; BMI 43.9
[2019-11-15] MEDS: Lactated Ringers 1,000 ML 100 ML IV ×5 (10:00→18:25)
--- NOTE | 2019-11-15 10:55 | TESH_PTH ---
PATIENT: JOHN PÉREZ LOC: MS3 U#:[id number] AGE/SX: 54/F ROOM: MS321 RE11/15/[address]: Dr. Caden Miles MD : 1965 BED: 1 DIS: 11/19/2019 SPEC #: [id number] RECD: 11/15/19 16:06 STATUS: ZACKERY REKatherin #: [id number] MILDRED: 11/15/19 10:[address]: Yisel Leija DEPT: SURGICAL PATHOLOGY RECD BY: Magnolia Amado ENTERED: 11/18/19 11:50 SP TYPE: TENDON OTHR DR: DO Dr. Caden Brown MD Dr. Lisa Malys, DO Tissues: Tendon and tendon sheath, NOS Procedures: Surgery Specimen Level III HEADER OPERATION: Resection of heel spur with detached and reattachment of Achilles tendon PRE-OP DIAGNOSIS: Heel spur and detached Achilles tendon TISSUE SUBMITTED: Achilles tendon MICROSCOPIC DIAGNOSIS Achilles tendon: Fragments of dense fibroconnective tissue, synovial tissue and bone with reactive changes. ALEXUS:james 11/19/19 MICROSCOPIC DESCRIPTION Slides are reviewed. GROSS DESCRIPTION Received in fixative is one container labeled with the patient's name and designated Achilles tendon. The specimen consists of multiple irregular fragments of jiménez, indurated tissue that in aggregate measure 2 x 3 x 1 cm. The largest piece is bisected. The entire specimen is submitted in two cassettes. / ALEXUS:james 11/18/19 TC:5 CPT: 40134
--- NOTE | 2019-11-15 12:00 | RAD_ITS ---
STUDY: X-RAY - RIGHT CALCANEUS-fluoroscopy guided resection of a spur. REASON FOR EXAM: Female, 54 years old. HEEL SPUR RESECTION TECHNIQUE: Fluoroscopy was utilized the for spur resection. 4 images were obtained. COMPARISON: None. FINDINGS: Images reveal soft tissue defect along the posterior superior calcaneus with interval resection of previously seen posterior enthesophyte. The previously seen plantar calcaneal spur is not well visualized on current study with minimal irregularity at this level, correlation with interval resection at this level. The reported fluoroscopy time is 0:24 minutes: Seconds. RAD/Calcaneus min 2 Views IMPRESSION: Fluoroscopically guided bony resection as described above, for details please see operative report. Electronically Signed: Dariana Zheng MD at 1:01 EST , Service support ,
[2019-11-15] MEDS: Bupivacaine Mpf 0.5% 30 ML VIAL (16:04)
--- NOTE | 2019-11-15 16:22 | OP.PCM_ITS ---
Problem List (1) Partial tear of right Achilles tendon Status: Acute Qualifiers: Encounter type: subsequent encounter Qualified Code(s): S86.011D - Strain of right Achilles tendon, subsequent encounter (2) Calcaneal spur, right foot Status: Chronic (3) Peroneal tenosynovitis Status: Chronic (4) Gastrocnemius equinus of right lower extremity Status: Chronic (5) Difficulty walking Status: Deleted (6) Pain of right lower extremity Status: Deleted Report of Operation Date of Procedure: 11/15/19 Pre-Operative Diagnosis: Right lower extremity: 1. Achilles tendinitis. 2. Calcaneus spur with Yolande deformity. 3. Peroneal tendinitis. 4. Gastrocnemius equinus Post-Operative Diagnosis: Right lower extremity: 1. Achilles tendon partial tear. 2. Calcaneus spur with Yolande deformity. 3. Peroneus brevis tenosynovitis. 4. Gastrocnemius equinus Surgery/Procedure Performed:: Right lower extremity: 1. Achilles tendon debridement with repair of tear. 2. Resection of posterior calcaneus spur and removal of retrocalcaneal inflamed bursa including de and reattachment of the Achilles tendon with anchors. 3. Tenosynovectomy of peroneus brevis tendon. 4. Endoscopic gastrocnemius recession Description of Surgical Findings:: Hemostasis: Well-padded pneumatic right thigh tourniquet, 315 mmHg, approxim ately 89 minutes Materials: 4 swivel lock bone anchors with fiber wire, 1-0 FiberWire suture, 3-0 and 4-0 nylon, 2-0 and 3-0 Vicryl Complications: None Specimens were sent to pathology as noted The patient tolerated the procedure and anesthesia well. She was transported to the PACU with vital signs stable and vascular status intact to the right lower extremity. She will maintain strict nonweightbearing status and will ice and elevate for pain and inflammation management. She will be assessed by physical and occupational therapy tomorrow to see if placement at a half-way facility is appropriate. Her postoperative orders were entered electronically. Her postoperative x-rays were reviewed prior to leaving the operating room demonstrating proper anchor placement and adequate resection of the calcaneus spur. pecan gatherer: none - surgeon: Yisel Leija DPM. ASssistant: No Cancino PGY2 Type of Anesthesia:: Local - Intraoperative: 10 cc of 1% lidocaine with epinephrine administered to the gastrocnemius recession site Intraoperative: 20 cc of one-to-one mixture of 1% lidocaine plain and 0.5% Marcaine plain administered in typical tibial and sural nerve block fashion to the right lower extremity Specimen's removed: Devitalized Achilles tendon right lower extremity Estimated Blood Loss (mL): < 150 mL Description of Procedure: Indications: This is a 54-year-old female with significant past medical history of sleep apnea, hypothyroidism, depression, anxiety, obesity who continues to complain of right Achilles and heel pain. She has been treated in outpatient setting including stretching, exercises, immobilization, advance shockwave therapy, activity modification without substantial relief of symptoms. Her pain is affecting her daily activities and she is unable to bear weight in a normal manner. She has failed conservative care and seeking surgical intervention at this time. Clinically she has pain palpation to the posterior Achilles at the prominent inflamed spur site. She also has pain palpation along the peroneal tendons that is reproducible in the clinical setting. She has reduced ankle dorsiflexion with the knee extended. X-rays demonstrate large posterior heel spur and Yolande deformity. MRI also confirmed intrasubstance partial Achilles tendon tear, inflamed retrocalcaneal bursa, posterior prominent calcaneus exostosis, and some tenosynovitis around the peroneus brevis tendon. Her preoperative clearance and history and physical exam performed by Dr. Villafuerte was reviewed. Her preoperative diagnostic data including CBC, CMP, and EKG were also reviewed. The preoperative indication, planned procedure, possible benefits, risk, complications, anticipated healing time and management were discussed in detail with the patient. She understands and elects to proceed with surgery at this time. Informed surgical consent and limb were signed. No guarantees were made. She understands risks and complications may include but are not limited to the following: pain, swelling, scarring, need for further surgery, hardware failure, blood clot, allergic reaction, recurrence, chronic pain, need for further bracing, loss of limb, function, or life. I answered all of her questions. Procedure in detail: The patient was transferred to the operating room via cart and placed on the operating table in the prone position. Final verification of the patient, surgery, limb designation were performed via the timeout procedure. Anesthesia was initiated by the anesthesia team including general anesthesia. The right lower extremity tourniquet was placed in a well-padded manner to the thigh. Care was taken to adequately pad and protect the patient while she is in the prone position. Preoperative antibiotics were administered as ordered. The right lower extremity was prepped and draped in usual aseptic manner and surgery began as the following: Attention was first directed to the posterior medial aspect of the right lower extremity for the endoscopic gastrocnemius recession procedure. A 1 cm incision made through the skin. Local infiltrative lidocaine with epinephrine was administered at this time. Blunt dissection was performed down through the crural fascia to identify the gastrocnemius aponeurosis. This incision was made a couple fingerbreadths distal to the palpated medial gastrocnemius head. Next the endoscopic plane finder was entered between the gastrocnemius aponeurosis and the crural fascia. This was repositioned until the correct plane was clearly identified. The clear cannula and arthroscope were entered. The gastrocnemius aponeurosis was carefully resected with an endoscope blade and intraoperative pictures were obtained to confirm full release. Improved ankle dorsiflexion was identified compared to preoperative status to over 10 degrees with the knee flexed and extended. Esmarch bandage was next utilized at this time and the limb was exsanguinated. The tourniquet was inflated. Attention was next directed to the posterior lower limb in which a curvilinear incision was made centrally over the distal Achilles and curving medially through the skin. A full subcutaneous flap was reflected off of the posterior aspect of the Achilles tendon in one segment. The Achilles was exposed and appeared to be very thickened with central devitalization and scarring noted. An incision was made centrally through the Achilles tendon and was reflected with a distal perpendicular incision. The Achilles was reflected to expose the prominent posterior calcaneus spur. She also had apparent inflamed retrocalcaneal bursa with adjacent scarring and this was excised with a rongeur. Sagittal saw was used to resect the spur off of the back of the calcaneus and this measured approximately 3 cm x 2.5 cm x 1.2 cm. This was rasped and smoothed. Adequate resection was confirmed with intraoperative fluoroscopy. Irrigation was performed. Swivel lock Arthrex bone anchors were used to reapproximate the Achilles tendon to the posterior calcaneus in neutral resting position. This was performed according to standard protocol and was further reinforced with 0 FiberWire and 2-0 Vicryl. Solid fixation was achieved and proper anchor placement was confirmed with intraoperative fluoroscopy. There were no acute injuries noted. This was irrigated and deep closure was performed with Vicryl. Next, attention was directed to the lateral ankle in which a four centimeter curvilinear incision was made just posterior to the lateral malleolus through the skin. Blunt dissection was performed down to the peroneal tendon sheath and this was entered carefully with a tenotomy scissor. The peroneus longus tendon appeared to be intact without a tear noted. There is some peroneal tenosynovitis around the peroneus brevis tendon only and this was debrided with instrumentation. The tendon was inspected and there were no bulbous findings, discoloration, or tear at this site or proximal or distal. A low-lying peroneus brevis muscle belly was identified and this was sharply debrided and cauterized with Bovie. This was irrigated. The tourniquet was deflated at this time and brisk capillary refill time was noted to all digits of the right foot. No pulsatile bleeding was noted. Electrocauterization and pressure was used to achieve hemostasis. Deep closure was achieved with Vicryl. The peroneal sheath was reapproximated to the fibula utilizing horizontal mattress technique with 3- 0 nylon. Next all skin incisions were reapproximated with 4-0 nylon utilizing horizontal mattress, vertical mattress, and simple suture techniques. A postoperative dressing consisting of Adaptic, gauze, Kerlix, webril was applied. A well-padded posterior mold splint was applied with the foot in slight eversion and plantarflexed position. After procedure: The patient tolerated the procedure and anesthesia well. She was transported to the PACU with vital signs stable and vascular status intact to the right lower extremity. She will be transferred to the medical surgical floor for observation and for consideration of half-way facility or rehabilitation program. She was advised to maintain a strict nonweightbearing status. To ice and elevate for pain and inflammation management. She will maintain a strict nonweightbearing position to the right lower extremity. Her postoperative orders were entered electronically. The hospitalist was asked to be in consultation for medical management and this is greatly appreciated. DVT prophylaxis Lovenox will be started tomorrow because she is considered moderate to high risk due to her sleep apnea, tourniquet time over 45 minutes, and surgical time over 2 hours, obesity, and immobilization status. Postoperative x-rays were reviewed as noted. Her orders were entered electronically. Yisel Leija DPM, [facility] [place] Grafts/Implants Used: Arthrex swivel lock bone anchors, 4 - Complications None - Admit VTE Documentation VTE Present on Admission: No VTE Mechan Device Prophylaxis: SCD's VTE Pharm Prophylaxis ordered?: Yes
--- NOTE | 2019-11-15 16:22 | HP.PCM_ITS ---
Problem List (1) Partial tear of right Achilles tendon Status: Chronic (2) Calcaneal spur, right foot Status: Chronic (3) Peroneal tenosynovitis Status: Chronic (4) Gastrocnemius equinus of right lower extremity Status: Chronic (5) Difficulty walking Status: Acute (6) Pain of right lower extremity Status: Chronic History of Present Illness Date of Admission: 11/15/19 Chief Complaint: Postoperative right lower extremity The patient is a 54 year old F with significant past medical history of sleep apnea, hypothyroidism, depression, anxiety, and obesity was admitted postoperative right lower extremity. She has had chronic pain with a diagnosis of an Achilles tear, proliferative spurring of the calcaneus, peroneal tendon pathology. She underwent surgical correction today including endoscopic gastrocnemius recession, repair of Achilles tear with de and reattachment with resection of the calcaneus spur and Yolande deformity, resection of peroneal tenosynovitis. She does not feel safe returning home because she has several stairs leading into her home in which she is concerned she will not be able to maintain a nonweightbearing status while entering and exiting home. Past Medical History Past Medical History (Chronic Problems): Chronic Problems (Last Updated 11/15/19 @ 16:46 by Yisel Leija DPM) Partial tear of right Achilles tendon (Chronic) Calcaneal spur, right foot (Chronic) Peroneal tenosynovitis (Chronic) Gastrocnemius equinus of right lower extremity (Chronic) Pain of right lower extremity (Chronic) Medical History: Medical History (Last Updated 11/15/19 @ 16:46 by Yisel Leija DPM) Depression F32.9 Hypothyroidism E03.9 Obesity, morbid, BMI 40.0-49.9 E66.01 Sleep apnea G47.30 Anxiety F41.9 Environmental allergies Z91.09 Chronic headaches R51 Allergies No Known Allergies Allergy (Verified 11/15/19 09:46) Home Medications: Ambulatory Orders Medication Instructions Recorded Cholecalciferol (Vitamin D3) 10,000 unit PO QWEEK 12/22/16 [Vitamin D3] Multivit-Min/Iron/Folic/Lutein 1 ea PO DAILY 12/22/16 [Centrum Silver Women Tablet] buPROPion XL [Wellbutrin Xl] 150 mg PO DAILY 12/22/16 Citalopram [Celexa] 10 mg PO DAILY 08/04/19 Cyanocobalamin (Vitamin B-12) 500 mcg PO DAILY 08/04/19 [Vitamin B-12] Levothyroxine Sodium 100 mcg PO DAILY 08/04/19 Surgical History: Surgical History (Last Reviewed 07/30/19 @ 15:44 by Jessy Dle Valle) Hx of Achilles tendon repair Z98.890 Surgical History: - - left achilles repair with FDL tendon transfer (2008) right lower extremity on 11/15/2019 as noted Psychiatric History: Anxiety, Depression Lives: With Family Smoking Status: Never smoker Tobacco Use: Non-smoker Alcohol: Rare Drugs: None - *Family History Maternal Family History: Family History (Last Reviewed 07/30/19 @ 15:44 by Jessy Del Valle) Other Asthma Heart disease Thyroid disorder History Items: Diabetes Paternal Family History: Family History (Last Reviewed 07/30/19 @ 15:44 by Jessy Del Valle) Other Asthma Heart disease Thyroid disorder History Items: - - Cardiac disease Review of Systems Constitutional: Denies: Chills, Fever Cardiovascular: Denies: Chest Pain, Claudication Respiratory: Denies: Shortness of Breath Musculoskeletal: Denies: Leg Pain Skin: Denies: Wounds Neurological: Reports: Balance problems, Incoordination Hematologic/ Lymphatic: Denies: Hx of blood clot VTE Information - Inpt Only VTE Present on Admission: No VTE Mechan Device Prophylaxis: SCD's VTE Pharm Prophylaxis ordered?: Yes Patient Problems: Active and Suspected Problems (Last Updated 11/15/19 @ 16:46 by Yisel Leija DPM) Difficulty walking (Acute) - Physical Exam Vitals/I&O's: Vital Signs Temp Pulse Resp BP Pulse Ox 100.0 F H 73 16 136/58 H 100 11/15/19 09:40 11/15/19 09:40 11/15/19 09:40 11/15/19 09:40 11/15/19 09:40 Oxygen Delivery Method Room Air Weight: 123.6 kg Body Mass Index (BMI) 43.9 Intake and Output for Last 24 Hours 11/13/19 11/14/19 11/15/19 23:59 23:59 23:59 Intake Total 1000 / 1000 Balance 1000 / 1000 General: Alert, Oriented x3, Cooperative Lungs: Clear to auscultation Cardiovascular: Regular rate, Regular Rhythm Extremities: Edema Skin: - - Dressing is clean and intact with the splint in place Musculoskeletal: - - Right lower extremity rectus slightly plantarflexed position and splint Psych/Mental Status: Normal Affect, Appropriate Current Medications Hydrocodone Bitart/Acetaminophen ([place] 5mg-325mg) 1 tablet PO Q6H PRN PRN PRN Reason: Pain Score 4-5/10 Docusate Sodium (Colace) 100 mg PO BID PRN PRN PRN Reason: Constipation Lactated Ringer's () 1,000 mls @ 100 mls/hr IV .Q10H [facility] Last Admin: 11/15/19 12:12 Dose: 100 mls/hr Documented by: Melatonin (Melatonin) 3 mg PO QHS PRN PRN PRN Reason: INSOMNIA Morphine Sulfate () 2 mg IV Q3H PRN PRN PRN Reason: Pain Score 6-10/10 Ondansetron HCl (Zofran) 4 mg IV Q8H PRN PRN PRN Reason: NAUSEA/VOMITING Assessment/Plan All Active Problems (Last Updated 11/15/19 @ 16:46 by Yisel Leija DPM) Infection of left breast (Acute) Segmental and somatic dysfunction of cervical region (Acute) Segmental and somatic dysfunction of lumbar region (Acute) Segmental and somatic dysfunction of thoracic region (Acute) Difficulty walking (Acute) Hyperthyroidism (Acute) POD #0: Right lower extremity postoperative endoscopic gastrocnemius recession, repair of Achilles tear with de and reattachment of achilles with bone anchors including resection of the calcaneus spur and Yolande deformity, resection of peroneal tenosynivitis Walking difficulty and fall risk Obesity Sleep apnea Hypothyroidism Anxiety This patient underwent surgical correction of right lower extremity today and was admitted for postoperative pain control. She also be evaluated by physical and occupational therapy tomorrow in which placement will be considered. The patient is interested in temporary placement at rehabilitation facility because she is not able to maintain a nonweightbearing status while entering and exiting her home that has stairs on both sides. She was advised to ice and elevate for pain inflammation management. Postoperative pain medications were ordered electronically. She was advised to maintain a strict nonweightbearing status wi th an assistive device to help. She will keep her dressing and splint clean, dry, and intact. Her medical comorbidities are noted. Reviewed the case with Dr. Loyola, hospitalist, who was asked to be on consultation for medical management. Additional management is greatly appreciated. DVT prophylaxis plan will also be reviewed. She was advised to continue with incentive spirometer while in-house as well. I will follow her closely while in house. Please not hesitate to call if you have any questions. Yisel Leija DPM, [facility] [phone] code status: full
--- NOTE | 2019-11-15 17:42 | RAD_ITS ---
STUDY: X-RAY - RIGHT CALCANEUS REASON FOR EXAM: Female, 54 years old is post op heel spur resection with anchors. TECHNIQUE: Plantar and lateral view(s) of the calcaneus were obtained. COMPARISON: Radiographs of the foot dated November 18, 2014. FINDINGS: There has been surgical resection of the posterior calcaneal enthesophyte and plantar calcaneal spurs since the previous radiographs. There is a talar beak. There is pes cavus. There is a prominent os trigonum. Two lucencies are visible in the calcaneus presumably related to previous location of orthopedic devices. There is moderate soft tissue swelling probably related to recent surgery. RAD/Calcaneus min 2 Views IMPRESSION: Postoperative appearance of the calcaneus. Electronically Signed: Bailey Cleaning MD at 9:21 EST , Service support ,
--- NOTE | 2019-11-15 18:20 | PCM.PROGNOTE ---
Patient Problems: Active and Suspected Problems (Last Updated 11/15/19 @ 16:46 by Yisel Leija DPM) Difficulty walking (Acute) Subjective: Hospitalist consult requested for medical management by Dr. Yisel Leija. The patient is a 54-year-old female with a past medical history of obstructive sleep apnea, morbid obesity, hypothyroidism, depression/anxiety and a achilles tendon tear ( denies injury or FQ use recently) who was taken to surgery by Dr. Leija on 11/15/2019 for 1. Achilles tendon debridement with repair of tear 2. Resection of posterior calcaneus spur and removal of retrocalcaneal K. Mumtaz inflamed bursa 3. Tenosynovectomy of Promius brevis tendon 4. Endoscopic gastrocnemius recession. Medication list was reviewed and recent labs. CBC was unremarkable. CMP was significant for an elevated BUN at 21 with a creatinine of 0.87 and a BUN/creatinine ratio of 24.2. LFTs were unremarkable. She is afebrile and pulse rate ranges from 59 -73. The blood pressure is mildly increased and has ranged from 136/58 preoperatively to a current blood pressure of 151/74. She has her CPAP unit with her. She does not wear oxygen. Denies any hx of CAD or Chronic lung disease. No hx of DM or HTN. Has occasional GERD and is not on any daily medication for this. She was seen and examined post op. She is alert and appropriate. She is having some pain in the R ankle but, it is OK for now. Denies nausea. She quit smoking at least 20 years ago and only smoked for a few years. No history of alcohol abuse and she uses no illicit drugs. Father at the age of 44 of a myocardial infarction Her mother is still alive and she lives with her mother who has diabetes mellitus and is legally blind. PSH is significant for surgery on the Left ankle for achilles tendon tear 10 years ago. - Physical Exam Vitals/I&O's: Vital Signs Temp Pulse Resp BP Pulse Ox 97.9 F 67 16 151/74 H 94 11/15/19 18:05 11/15/19 18:05 11/15/19 18:05 11/15/19 18:05 11/15/19 18:05 Oxygen Flow Rate (L/min) 2 Oxygen Delivery Method Nasal Cannula Weight: 272 lb 7.861 oz Body Mass Index (BMI) 43.9 Intake and Output for Last 24 Hours 11/13/19 11/14/19 11/15/19 23:59 23:59 23:59 Intake Total 3115 / 3115 Balance 3115 / 3115 General: Alert, Oriented x3, Cooperative, No apparent distress, Well developed, Well nourished HEENT: Atraumatic, PERRLA, Normocephalic Oral: No Gingival or Mucosal Lesions/ Ulcerations, Dry Mucosa Neck: Supple, No Nodes, Trachea Midline Lungs: Clear to auscultation - anterior and lateral, - - Not tachypneic, no conversational dyspnea, symmetric chest expansion bilaterally, no retractions Cardiovascular: Regular rate, Regular Rhythm, Normal S1, Normal S2, No murmurs, No rub noted, No Gallop, - - No ectopic activity Abdomen: Bowel Sounds Present, Soft, Non Tender, Non-Distended, Obese, - - No guarding with palpation Extremities: No clubbing, No cyanosis, No edema, Capillary Refill Less than 3 Seconds, Diminished Peripheral Pulses Skin: No rashes, No breakdown, - - there is a cast present on the RLE Musculoskeletal: No Muscle Wasting Neurological: Cranial nerves II-XII grossly intact, Neuro grossly intact Psych/Mental Status: Normal Affect, Appropriate Current Medications Hydrocodone Bitart/Acetaminophen ([place] 5mg-325mg) 1 tablet PO Q6H PRN PRN PRN Reason: Pain Score 4-5/10 Docusate Sodium (Colace) 100 mg PO BID PRN PRN PRN Reason: Constipation Enoxaparin Sodium (Lovenox) 40 mg SC DAILY@0600 [facility] Lactated Ringer's () 1,000 mls @ 100 mls/hr IV .Q10H [facility] Last Admin: 11/15/19 16:00 Dose: 100 mls/hr Documented by: Sodium Chloride () 250 mls @ 15 mls/hr IV .[id number] PRN PRN Reason: Saline Flush Sodium Chloride () 250 mls @ 15 mls/hr IV .[id number] PRN PRN Reason: Additional IVPB Infusion Melatonin (Melatonin) 3 mg PO QHS PRN PRN PRN Reason: INSOMNIA Morphine Sulfate () 2 mg IV Q3H PRN PRN PRN Reason: Pain Score 6-10/10 Ondansetron HCl (Zofran) 4 mg IV Q8H PRN PRN PRN Reason: NAUSEA/VOMITING Sodium Chloride () 10 - 40 ml IV UD PRN PRN Reason: SALINE FLUSH Medical Necessity - Tobacco Use Smoking Status: Former smoker Tobacco Use: Non-smoker - quit at least 20 years ago Assessment/Plan All Active Problems (Last Updated 11/15/19 @ 16:46 by Yisel Leija, DPM) Infection of left breast (Acute) Segmental and somatic dysfunction of cervical region (Acute) Segmental and somatic dysfunction of lumbar region (Acute) Segmental and somatic dysfunction of thoracic region (Acute) Difficulty walking (Acute) Hyperthyroidism (Acute) Impressions 1. S/P surgery on the R ankle by Dr. Leija to repair R Achilles tendon tear. 2. DEANDRE - wear CPAP and she brought her unit with her. 3. Hypothyroidism - continue the home dose of Levothyroid 4. mildly increased BP with no hx of HTN -more likely than not secondary to pain 5. Morbid obesity 6. Chronic depression-continue Wellbutrin and citalopram 7. Allergic rhinitis-continue Asha daily Thank you for allowing the hospitalist service to assist in the medical management of this pt. Will follow along while she is in the hospital. May need rehab unit at [place] prior to going home since her mother can not assist her due to blindness. Code Visit Inpatient E&M: 29073 Subs Hosp L2
[2019-11-15] MEDS: 0.9% Saline Lock 10 ML Syringe IV (21:27)
[2019-11-15] MEDS: Morphine 2 MG/ML Syringe IV (21:27)
[2019-11-15] MEDS: HYDROcodone Bitartrate/Apap 5/325 Tablet PO (23:13)
[2019-11-16 03:38] VITALS: BP 96/49; PULSE 57; RESP 16; TEMP 36.6; O2SAT 98
[2019-11-16] MEDS: Levothyroxine 100 MCG Tablet PO (05:23)
[2019-11-16] MEDS: HYDROcodone Bitartrate/Apap 5/325 Tablet PO ×3 (05:23→18:29)
[2019-11-16] MEDS: Enoxaparin 40 MG/0.4 ML Syringe SC (05:24)
[2019-11-16 07:58] VITALS: BP 106/54; PULSE 61; RESP 20; TEMP 36.6; O2SAT 98
[2019-11-16] MEDS: Citalopram 10 MG Tablet PO (08:01)
[2019-11-16] MEDS: Docusate Sodium 100 MG Capsule PO (08:01)
[2019-11-16] MEDS: buPROPion (XL) 150 MG TABLET.XL PO (08:01)
[2019-11-16] MEDS: 0.9% Saline Lock 10 ML Syringe IV ×3 (08:02→23:42)
[2019-11-16] MEDS: Morphine 2 MG/ML Syringe IV ×2 (08:02→11:28)
[2019-11-16] MEDS: Loratadine 10 MG Tablet PO (08:02)
--- NOTE | 2019-11-16 09:36 | PCM.PN.HOSP ---
Patient Problems: Active and Suspected Problems (Last Updated 11/15/19 @ 16:46 by Yisel Leija DPM) Difficulty walking (Acute) Reason for Visit: achilles repair Subjective: Feels well no complaints. Vitals/I&O's: Vital Signs Temp Pulse Resp BP Pulse Ox 36.6 C 61 20 H 106/54 L 98 11/16/19 07:58 11/16/19 07:58 11/16/19 07:58 11/16/19 07:58 11/16/19 07:58 Oxygen Flow Rate (L/min) 2 Oxygen Delivery Method Room Air Weight: 123.6 kg Body Mass Index (BMI) 43.9 Intake and Output for Last 24 Hours 11/14/19 11/15/19 11/16/19 23:59 23:59 23:59 Intake Total 3956.67 / 3956.67 1128.33 / 1128.33 Output Total 1800 / 1800 700 / 700 Balance 2156.67 / 2156.67 428.33 / 428.33 General: Alert, No apparent distress HEENT: Atraumatic, Normocephalic Oral: Moist Mucosa, No Gingival or Mucosal Lesions/ Ulcerations Neck: No Nodes, Trachea Midline Lungs: Clear to auscultation, Normal air movement, No rhonchi, No wheeze, No rales Cardiovascular: Regular rate, Regular Rhythm, Normal S1, Normal S2, No murmurs Abdomen: Bowel Sounds Present, Soft, Non Tender, Non-Distended, No Hepato-splenomegaly Extremities: - - right foot and ankle wrapped and casted--did not remove. Psych/Mental Status: Normal Affect, Appropriate Current Medications Hydrocodone Bitart/Acetaminophen ([place] 5mg-325mg) 1 tablet PO Q6H PRN PRN PRN Reason: Pain Score 4-5/10 Last Admin: 11/16/19 05:23 Dose: 1 tablet Documented by: Bupropion HCl (Wellbutrin Xl) 150 mg PO DAILY [facility] Last Admin: 11/16/19 08:01 Dose: 150 mg Documented by: Citalopram Hydrobromide (Celexa) 10 mg PO DAILY [facility] Last Admin: 11/16/19 08:01 Dose: 10 mg Documented by: Docusate Sodium (Colace) 100 mg PO BID PRN PRN PRN Reason: Constipation Last Admin: 11/16/19 08:01 Dose: 100 mg Documented by: Enoxaparin Sodium (Lovenox) 40 mg SC DAILY@0600 [facility] Last Admin: 11/16/19 05:24 Dose: 40 mg Documented by: Sodium Chloride () 250 mls @ 15 mls/hr IV .[id number] PRN PRN Reason: Saline Flush Sodium Chloride () 250 mls @ 15 mls/hr IV .[id number] PRN PRN Reason: Additional IVPB Infusion Levothyroxine Sodium (Synthroid) 100 mcg PO DAILY@0600 [facility] Last Admin: 11/16/19 05:23 Dose: 100 mcg Documented by: Loratadine (Claritin) 10 mg PO DAILY [facility] Last Admin: 11/16/19 08:02 Dose: 10 mg Documented by: Melatonin (Melatonin) 3 mg PO QHS PRN PRN PRN Reason: INSOMNIA Morphine Sulfate () 2 mg IV Q3H PRN PRN PRN Reason: Pain Score 6-10/10 Last Admin: 11/16/19 08:02 Dose: 2 mg Documented by: Ondansetron HCl (Zofran) 4 mg IV Q8H PRN PRN PRN Reason: NAUSEA/VOMITING Sodium Chloride () 10 - 40 ml IV UD PRN PRN Reason: SALINE FLUSH Last Admin: 11/16/19 08:02 Dose: 10 ml Documented by: STROKE Vital Signs/Narrative: Vital Signs Temp Pulse Resp BP Pulse Ox 11/16/19 07:58 36.6 C 61 20 H 106/54 L 98 Medical Necessity - Tobacco Use Smoking Status: Former smoker Tobacco Use: Non-smoker - quit at least 20 years ago Assessment/Plan All Active Problems (Last Updated 11/15/19 @ 16:46 by Yisel Leija DPM) Infection of left breast (Acute) Segmental and somatic dysfunction of cervical region (Acute) Segmental and somatic dysfunction of lumbar region (Acute) Segmental and somatic dysfunction of thoracic region (Acute) Difficulty walking (Acute) Hyperthyroidism (Acute) Assessment: 1. s/p Achilles tendon repair 2. DEANDRE 3. Hypothyroidism 4. Debility Plan: 1. continue home medications 2. VTE prophylaxis until patient can be weight bearing 3. CPAP 4. To rehab/SNF pending insurance authorization. Code Visit Inpatient E&M: 05246 Subs Hosp L2
--- NOTE | 2019-11-16 10:18 | PN_ITS ---
Patient Problems: Active and Suspected Problems (Last Updated 11/15/19 @ 16:46 by Yisel Leija DPM) Difficulty walking (Acute) Subjective: This patient is a 54 year old F with significant past medical history of sleep apnea, hypothyroidism, depression, anxiety, and obesity was admitted postoperative right lower extremity. She has had chronic pain with a diagnosis of an Achilles tear, proliferative spurring of the calcaneus, peroneal tendon pathology. She underwent surgical correction yesterday including endoscopic gastrocnemius recession, repair of Achilles tear with de and reattachment with resection of the calcaneus spur and Yolande deformity, resection of peroneal tenosynovitis. She does not feel safe returning home because she has several stairs leading into her home in which she is concerned she will not be able to maintain a nonweightbearing status while entering and exiting home. She will see physical and Occupational Therapy today will be considered for rehabilitation placement. She lives with her mother and home who is not able to help care for her at this time secondary to blindness. Her pain for the most part is controlled at a 6 out of 10. She has been elevating her limb and using her incentive spirometer. She denies fever, chill, nausea, vomiting, chest pain, shortness of breath, calf pain. Her family is bedside. - Physical Exam Vitals/I&O's: Vital Signs Temp Pulse Resp BP Pulse Ox 98 F 61 20 H 106/54 L 98 11/16/19 07:58 11/16/19 07:58 11/16/19 07:58 11/16/19 07:58 11/16/19 07:58 Oxygen Flow Rate (L/min) 2 Oxygen Delivery Method Room Air Weight: 123.6 kg Body Mass Index (BMI) 43.9 Intake and Output for Last 24 Hours 11/14/19 11/15/19 11/16/19 23:59 23:59 23:59 Intake Total 3956.67 / 3956.67 1128.33 / 1128.33 Output Total 1800 / 1800 700 / 700 Balance 2156.67 / 2156.67 428.33 / 428.33 General: Alert, Oriented x3, Cooperative Lungs: Clear to auscultation, Normal air movement Cardiovascular: Regular rate, Regular Rhythm Extremities: Capillary Refill Less than 3 Seconds - All digits right foot, No Calf Tenderness - Negative Schroeder sign bilateral Skin: - - Dressing is clean, dry, and intact without strikethrough or odor right lower extremity Musculoskeletal: - - Rectus right lower extremity remains intact and splinted in a slight plantarflexed position. Active range of motion digits x5 right Neurological: Sensory exam intact to light touch and pain - Sensation is intact to digits of right foot Psych/Mental Status: Normal Affect, Appropriate Current Medications Hydrocodone Bitart/Acetaminophen ([place] 5mg-325mg) 1 tablet PO Q6H PRN PRN PRN Reason: Pain Score 4-5/10 Last Admin: 11/16/19 05:23 Dose: 1 tablet Documented by: Bupropion HCl (Wellbutrin Xl) 150 mg PO DAILY [facility] Last Admin: 11/16/19 08:01 Dose: 150 mg Documented by: Citalopram Hydrobromide (Celexa) 10 mg PO DAILY [facility] Last Admin: 11/16/19 08:01 Dose: 10 mg Documented by: Docusate Sodium (Colace) 100 mg PO BID PRN PRN PRN Reason: Constipation Last Admin: 11/16/19 08:01 Dose: 100 mg Documented by: Enoxaparin Sodium (Lovenox) 40 mg SC DAILY@0600 [facility] Last Admin: 11/16/19 05:24 Dose: 40 mg Documented by: Sodium Chloride () 250 mls @ 15 mls/hr IV .[id number] PRN PRN Reason: Saline Flush Sodium Chloride () 250 mls @ 15 mls/hr IV .[id number] PRN PRN Reason: Additional IVPB Infusion Levothyroxine Sodium (Synthroid) 100 mcg PO DAILY@0600 [facility] Last Admin: 11/16/19 05:23 Dose: 100 mcg Documented by: Loratadine (Claritin) 10 mg PO DAILY [facility] Last Admin: 11/16/19 08:02 Dose: 10 mg Documented by: Melatonin (Melatonin) 3 mg PO QHS PRN PRN PRN Reason: INSOMNIA Morphine Sulfate () 2 mg IV Q3H PRN PRN PRN Reason: Pain Score 6-10/10 Last Admin: 11/16/19 08:02 Dose: 2 mg Documented by: Ondansetron HCl (Zofran) 4 mg IV Q8H PRN PRN PRN Reason: NAUSEA/VOMITING Sodium Chloride () 10 - 40 ml IV UD PRN PRN Reason: SALINE FLUSH Last Admin: 11/16/19 08:02 Dose: 10 ml Documented by: Medical Necessity - Tobacco Use Smoking Status: Former smoker Tobacco Use: Non-smoker - quit at least 20 years ago Assessment/Plan All Active Problems (Last Updated 11/15/19 @ 16:46 by Yisel Leija DPM) Infection of left breast (Acute) Segmental and somatic dysfunction of cervical region (Acute) Segmental and somatic dysfunction of lumbar region (Acute) Segmental and somatic dysfunction of thoracic region (Acute) Difficulty walking (Acute) Hyperthyroidism (Acute) POD #1: Right lower extremity postoperative endoscopic gastrocnemius recession, repair of Achilles tear with de and reattachment of achilles with bone anchors including resection of the calcaneus spur and Yolande deformity, resection of peroneal tenosynivitis Walking difficulty and fall risk Obesity Sleep apnea Hypothyroidism Anxiety This patient underwent surgical correction of right lower extremity yesterday and was admitted for postoperative pain control. She will also be evaluated by physical and occupational therapy today. The patient is interested in temporary placement at rehabilitation facility because she is not able to maintain a nonweightbearing status while entering and exiting her home that has stairs on both sides. She was advised to ice and elevate for pain and inflammation management. Her pain is moderate at this time and at times severe. She denies current need for change in medications however was advised to let me know if it is not controlled. Understands her local anesthetic block has worn off by this time. She was advised to maintain a strict nonweightbearing status with an assistive device to help. She will keep her dressing and splint clean, dry, and intact. She is on Lovenox for DVT prophylaxis. She was advised to continue with incentive spirometer while in-house as well. Medical management by hospitalist service is greatly appreciated. I will follow her closely while in house. Please not hesitate to call if you have any questions. Yisel Leija DPM, [facility] [phone]
[2019-11-16] MEDS: Ketorolac 30 MG/ML Syringe IV (12:20)
[2019-11-16 13:39] VITALS: BP 126/68; PULSE 74; RESP 18; TEMP 36.8; O2SAT 98
[2019-11-16 20:00] VITALS: BP 115/61; PULSE 71; RESP 16; TEMP 36.7; O2SAT 98
[2019-11-16] MEDS: Morphine 4 MG/ML Syringe 3 MG IV (23:42)
[2019-11-17] MEDS: Enoxaparin 40 MG/0.4 ML Syringe SC (05:08)
[2019-11-17] MEDS: Levothyroxine 100 MCG Tablet PO (05:08)
[2019-11-17] MEDS: HYDROcodone Bitartrate/Apap 5/325 Tablet PO ×3 (05:09→20:04)
[2019-11-17 05:13] VITALS: BP 120/60; PULSE 69; RESP 18; TEMP 36.7; O2SAT 98
--- NOTE | 2019-11-17 07:20 | PCM.PROGNOTE ---
Patient Problems: Active and Suspected Problems (Last Updated 11/15/19 @ 16:46 by Yisel Leija DPM) Difficulty walking (Acute) Subjective: This 54-year-old female was seen bedside postoperative day 2 her right lower extremity Achilles and peroneal injury repair. She denies fever, chill, nausea, vomiting, shortness of breath, chest pain, or calf pain. She worked a little with physical therapy yesterday in which they worked on sitting up, hopping, and using the bedside commode. She relates her pain is much better controlled today and is rated as a 4 out of 10 at worst. She continues to elevate and use the incentive spirometer. - Physical Exam Vitals/I&O's: Vital Signs Temp Pulse Resp BP Pulse Ox 98.1 F 69 18 120/60 98 11/17/19 05:13 11/17/19 05:13 11/17/19 05:13 11/17/19 05:13 11/17/19 05:13 Oxygen Flow Rate (L/min) 2 Oxygen Delivery Method Room Air Weight: 123.6 kg Body Mass Index (BMI) 43.9 Intake and Output for Last 24 Hours 11/15/19 11/16/19 11/17/19 23:59 23:59 23:59 Intake Total 3956.67 / 3956.67 1628.33 / 1628.33 250 / 250 Output Total 1800 / 1800 2600 / 2600 Balance 2156.67 / 2156.67 -971.67 / -971.67 250 / 250 General: Alert, Oriented x3, Cooperative Lungs: Clear to auscultation, Normal air movement Cardiovascular: Regular rate, Regular Rhythm Extremities: No cyanosis, Capillary Refill Less than 3 Seconds - All digits right foot, No Calf Tenderness - Negative Schroeder sign bilateral, Peripheral Pulses Normal - Dorsalis pedis pulse palpable right Skin: - - Right lower extremity dressing and splint remain clean, dry, and intact without strikethrough or odor noted Musculoskeletal: - - Active range of motion digits right foot. Right lower extremity are in the desired slightly plantarflexed rectus position Neurological: Sensory exam intact to light touch and pain - All digits right foot Psych/Mental Status: Normal Affect, Appropriate Current Medications Hydrocodone Bitart/Acetaminophen ([place] 5mg-325mg) 1 tablet PO Q6H PRN PRN PRN Reason: Pain Score 4-5/10 Last Admin: 11/17/19 05:09 Dose: 1 tablet Documented by: Bupropion HCl (Wellbutrin Xl) 150 mg PO DAILY [facility] Last Admin: 11/16/19 08:01 Dose: 150 mg Documented by: Citalopram Hydrobromide (Celexa) 10 mg PO DAILY [facility] Last Admin: 11/16/19 08:01 Dose: 10 mg Documented by: Docusate Sodium (Colace) 100 mg PO BID PRN PRN PRN Reason: Constipation Last Admin: 11/16/19 08:01 Dose: 100 mg Documented by: Enoxaparin Sodium (Lovenox) 40 mg SC DAILY@0600 [facility] Last Admin: 11/17/19 05:08 Dose: 40 mg Documented by: Sodium Chloride () 250 mls @ 15 mls/hr IV .[id number] PRN PRN Reason: Saline Flush Sodium Chloride () 250 mls @ 15 mls/hr IV .[id number] PRN PRN Reason: Additional IVPB Infusion Naloxone HCl 4 mg/ Dextrose 504 mls @ 0 mls/hr IV .Q0M PRN; Protocol PRN Reason: To maintain Resp. rate >10 Levothyroxine Sodium (Synthroid) 100 mcg PO DAILY@0600 [facility] Last Admin: 11/17/19 05:08 Dose: 100 mcg Documented by: Loratadine (Claritin) 10 mg PO DAILY [facility] Last Admin: 11/16/19 08:02 Dose: 10 mg Documented by: Melatonin (Melatonin) 3 mg PO QHS PRN PRN PRN Reason: INSOMNIA Morphine Sulfate () 3 mg IV Q2H PRN PRN PRN Reason: Pain Score 6-10/10 Last Admin: 11/16/19 23:42 Dose: 3 mg Documented by: Naloxone HCl (Narcan) 0.02 mg IV Q1M PRN PRN Reason: RR <10 and pt unresponsive Ondansetron HCl (Zofran) 4 mg IV Q8H PRN PRN PRN Reason: NAUSEA/VOMITING Sodium Chloride () 10 - 40 ml IV UD PRN PRN Reason: SALINE FLUSH Last Admin: 11/16/19 23:42 Dose: 20 ml Documented by: Medical Necessity - Tobacco Use Smoking Status: Former smoker Tobacco Use: Non-smoker - quit at least 20 years ago Assessment/Plan All Active Problems (Last Updated 11/15/19 @ 16:46 by Yisel Leija DPM) Infection of left breast (Acute) Segmental and somatic dysfunction of cervical region (Acute) Segmental and somatic dysfunction of lumbar region (Acute) Segmental and somatic dysfunction of thoracic region (Acute) Difficulty walking (Acute) Hyperthyroidism (Acute) POD # 2: Right lower extremity postoperative endoscopic gastrocnemius recession, repair of Achilles tear with de and reattachment of achilles with bone anchors including resection of the calcaneus spur and Yolande deformity, resection of peroneal tenosynivitis Walking difficulty and fall risk Obesity Sleep apnea Hypothyroidism Anxiety Right lower extremity pain This patient underwent surgical correction of right lower extremity. To keep splint and dressing clean, dry, and intact. To ice and elevate for pain management. Her IV pain medication will be decreased over the course of today in preparation for discontinuation. Her pain level has improved compared to yesterday. The patient is interested in temporary placement at rehabilitation facility because she is not able to maintain a nonweightbearing status while entering and exiting her home that has stairs on both sides. She was advised to maintain a strict nonweightbearing status with an assistive device to help. She did see physical therapy yesterday. Case management is on consultation for additional help with this process. She is on Lovenox for DVT prophylaxis. She was advised to continue with incentive spirometer while in-house as well. Medical management by hospitalist service is greatly appreciated. I will follow her closely while in house. Please not hesitate to call if you have any questions. Yisel Leija DPM, [facility] [phone]
[2019-11-17 08:28] VITALS: BP 132/68; PULSE 73; RESP 16; TEMP 37.4; O2SAT 100
[2019-11-17] MEDS: Citalopram 10 MG Tablet PO (08:35)
[2019-11-17] MEDS: Loratadine 10 MG Tablet PO (08:35)
[2019-11-17] MEDS: buPROPion (XL) 150 MG TABLET.XL PO (08:36)
[2019-11-17] MEDS: Docusate Sodium 100 MG Capsule PO (08:37)
--- NOTE | 2019-11-17 08:44 | NURSING ---
talked w/ Josue lining caser as requested by Dr. Leija. Josue was informed looking at ecf placement, Dr. Leija was concerned about getting the process started. Josue aware
--- NOTE | 2019-11-17 10:16 | PN_ITS ---
Patient Problems: Active and Suspected Problems (Last Updated 11/15/19 @ 16:46 by Yisel Leija DPM) Difficulty walking (Acute) Reason for Visit: achilles rupture. Subjective: No new complaints. Feels well. Eating well. Vitals/I&O's: Vital Signs Temp Pulse Resp BP Pulse Ox 37.4 C H 73 16 132/68 H 100 11/17/19 08:28 11/17/19 08:28 11/17/19 08:28 11/17/19 08:28 11/17/19 08:28 Oxygen Flow Rate (L/min) 2 Oxygen Delivery Method Room Air Weight: 123.6 kg Body Mass Index (BMI) 43.9 Intake and Output for Last 24 Hours 11/15/19 11/16/19 11/17/19 23:59 23:59 23:59 Intake Total 3956.67 / 3956.67 1628.33 / 1628.33 250 / 250 Output Total 1800 / 1800 2600 / 2600 Balance 2156.67 / 2156.67 -971.67 / -971.67 250 / 250 General: Alert, Cooperative, No apparent distress HEENT: Atraumatic, Normocephalic Oral: Moist Mucosa, No Gingival or Mucosal Lesions/ Ulcerations Neck: No Nodes, Trachea Midline Lungs: Clear to auscultation, Normal air movement, No rhonchi, No wheeze, No rales Cardiovascular: Regular rate, Regular Rhythm, Normal S1, Normal S2, No murmurs Abdomen: Bowel Sounds Present, Soft, Non Tender, Non-Distended, No Hepato- splenomegaly Extremities: Capillary Refill Less than 3 Seconds, - - Right leg and foot cast ed--did not remove. Psych/Mental Status: Normal Affect, Appropriate Current Medications Hydrocodone Bitart/Acetaminophen ([place] 5mg-325mg) 2 tablet PO Q6H PRN PRN PRN Reason: Pain Score 4-5/10 Bupropion HCl (Wellbutrin Xl) 150 mg PO DAILY [facility] Last Admin: 11/17/19 08:36 Dose: 150 mg Documented by: Citalopram Hydrobromide (Celexa) 10 mg PO DAILY [facility] Last Admin: 11/17/19 08:35 Dose: 10 mg Documented by: Docusate Sodium (Colace) 100 mg PO BID PRN PRN PRN Reason: Constipation Last Admin: 11/17/19 08:37 Dose: 100 mg Documented by: Enoxaparin Sodium (Lovenox) 40 mg SC DAILY@0600 [facility] Last Admin: 11/17/19 05:08 Dose: 40 mg Documented by: Sodium Chloride () 250 mls @ 15 mls/hr IV .[id number] PRN PRN Reason: Saline Flush Sodium Chloride () 250 mls @ 15 mls/hr IV .[id number] PRN PRN Reason: Additional IVPB Infusion Naloxone HCl 4 mg/ Dextrose 504 mls @ 0 mls/hr IV .Q0M PRN; Protocol PRN Reason: To maintain Resp. rate >10 Levothyroxine Sodium (Synthroid) 100 mcg PO DAILY@0600 [facility] Last Admin: 11/17/19 05:08 Dose: 100 mcg Documented by: Loratadine (Claritin) 10 mg PO DAILY [facility] Last Admin: 11/17/19 08:35 Dose: 10 mg Documented by: Melatonin (Melatonin) 3 mg PO QHS PRN PRN PRN Reason: INSOMNIA Morphine Sulfate () 2 mg IV Q3H PRN PRN PRN Reason: Pain Score 6-10/10 Naloxone HCl (Narcan) 0.02 mg IV Q1M PRN PRN Reason: RR <10 and pt unresponsive Ondansetron HCl (Zofran) 4 mg IV Q8H PRN PRN PRN Reason: NAUSEA/VOMITING Sodium Chloride () 10 - 40 ml IV UD PRN PRN Reason: SALINE FLUSH Last Admin: 11/16/19 23:42 Dose: 20 ml Documented by: STROKE Vital Signs/Narrative: Vital Signs Temp Pulse Resp BP Pulse Ox 11/17/19 08:28 37.4 C H 73 16 132/68 H 100 Medical Necessity - Tobacco Use Smoking Status: Former smoker Tobacco Use: Non-smoker - quit at least 20 years ago Assessment/Plan All Active Problems (Last Updated 11/15/19 @ 16:46 by Yisel Leija DPM) Infection of left breast (Acute) Segmental and somatic dysfunction of cervical region (Acute) Segmental and somatic dysfunction of lumbar region (Acute) Segmental and somatic dysfunction of thoracic region (Acute) Difficulty walking (Acute) Hyperthyroidism (Acute) Assessment: 1. s/p Achilles tendon repair 2. DEANDRE 3. Hypothyroidism 4. Debility Plan: 1. continue home medications 2. VTE prophylaxis until patient can be weight bearing. Currently on enoxaparin. 3. CPAP 4. To rehab/SNF pending insurance authorization. Code Visit Inpatient E&M: 30728 Subs Hosp L2
[2019-11-17 10:32] VITALS: PULSE 70
[2019-11-17] MEDS: Morphine 2 MG/ML Syringe IV (12:09)
[2019-11-17] MEDS: 0.9% Saline Lock 10 ML Syringe IV (12:09)
[2019-11-17 15:20] VITALS: BP 108/52; PULSE 70; PULSE 72; RESP 18; TEMP 37.4; O2SAT 97
[2019-11-17 19:45] VITALS: BP 110/50; PULSE 77; RESP 16; TEMP 36.8; O2SAT 94
[2019-11-18 02:00] VITALS: BP 107/47; PULSE 71; RESP 16; TEMP 36.7; O2SAT 98
[2019-11-18] MEDS: HYDROcodone Bitartrate/Apap 5/325 Tablet PO ×3 (04:21→19:39)
[2019-11-18] MEDS: Enoxaparin 40 MG/0.4 ML Syringe SC (06:48)
[2019-11-18] MEDS: Levothyroxine 100 MCG Tablet PO (06:48)
--- NOTE | 2019-11-18 09:11 | CASEMGMT ---
Addendum entered by Felicia Stout 11/18/19 11:07: SW received call from [facility] with [facility] stating she will submit for pre-cert. SW in to speak with pt. SW introduced self and role at [facility]. Pt is alert and orientated x3. Pt confirms that she would like to go to [facility] at discharge. SW explained that [facility] is able to accept pt pending insurance approval. SW informed pt that insurance may deny [facility] and then pt would need to look into SNF. SW provided pt with list of SNF that accept pt's insurance in the event pt gets denied [facility]. Pt states understanding that she may need to go to SNF if she gets denied [facility]. Plan: [facility] pending pre-cert Original Note: Social Work Note SW received call from physician on [facility] stating pt would be appropriate for [facility]. SW placed a call to [facility] with [facility] and left her a message to submit for pre-cert for [facility]. Plan: [facility] pending pre-cert Felicia Stout TITLE EXAMINER, [employer]IST[employer]
[2019-11-18 10:00] VITALS: BP 132/65; PULSE 74; RESP 16; TEMP 36.8; O2SAT 99
[2019-11-18] MEDS: Loratadine 10 MG Tablet PO (10:46)
[2019-11-18] MEDS: buPROPion (XL) 150 MG TABLET.XL PO (10:46)
[2019-11-18] MEDS: Citalopram 10 MG Tablet PO (10:46)
[2019-11-18 11:00] VITALS: O2SAT 97
--- NOTE | 2019-11-18 11:40 | PN_ITS ---
Patient Problems: Active and Suspected Problems (Last Updated 11/15/19 @ 16:46 by Yisel Leija DPM) Difficulty walking (Acute) Reason for Visit: Follow-up Achilles tendon repair Subjective: Patient is a 54-year-old lady admitted by podiatry patient underwent Patient is a 54-year-old lady admitted by podiatry patient underwent Achilles tendon repair hospitalist service consulted for management of patient medical comorbidities hospitalist service consulted for management of patient medical comorbidities Objective: GENERAL: cooperative HEENT: Atraumatic; EYES; Anicteric, Normal Conjunctiva NECK; supple, normal thyroid, RESPIRATORY: Diminished to auscultation CARDIOVASCULAR: Regular S1 S2, GI: soft, normoactive bowel sounds, : No Renal angle tenderness; EXTREMITIES: No edema, no clubbing, MUSCULOSKELETAL: Right foot/ankle in surgical dressing NEURO: Awake; no lateralizing signs. SKIN: No Rash PSYCH; Flat affect Vitals/I&O's: Vital Signs Temp Pulse Resp BP Pulse Ox 98.2 F 74 16 132/65 H 997 11/18/19 10:11/18/19 10:00 11/18/19 10:00 11/18/19 10:11/18/19 10:00 Oxygen Flow Rate (L/min) 2 Oxygen Delivery Method Room Air Weight: 123.6 kg Body Mass Index (BMI) 43.9 Intake and Output for Last 24 Hours 11/16/19 11/17/19 11/18/19 23:59 23:59 23:59 Intake Total 1628.33 / 1628.33 250 / 450 400 / 400 Output Total 2600 / 2600 875 / 875 Balance -971.67 / -971.67 250 / 100 -475 / -475 Current Medications Hydrocodone Bitart/Acetaminophen ([place] 5mg-325mg) 2 tablet PO Q6H PRN PRN PRN Reason: Pain Score 4-5/10 Last Admin: 11/18/19 04:21 Dose: 2 tablet Documented by: Bupropion HCl (Wellbutrin Xl) 150 mg PO DAILY [facility] Last Admin: 11/18/19 10:46 Dose: 150 mg Documented by: Citalopram Hydrobromide (Celexa) 10 mg PO DAILY [facility] Last Admin: 11/18/19 10:46 Dose: 10 mg Documented by: Docusate Sodium (Colace) 100 mg PO BID PRN PRN PRN Reason: Constipation Last Admin: 11/17/19 08:37 Dose: 100 mg Documented by: Enoxaparin Sodium (Lovenox) 40 mg SC DAILY@0600 [facility] Last Admin: 11/18/19 06:48 Dose: 40 mg Documented by: Sodium Chloride () 250 mls @ 15 mls/hr IV .[id number] PRN PRN Reason: Saline Flush Sodium Chloride () 250 mls @ 15 mls/hr IV .[id number] PRN PRN Reason: Additional IVPB Infusion Naloxone HCl 4 mg/ Dextrose 504 mls @ 0 mls/hr IV .Q0M PRN; Protocol PRN Reason: To maintain Resp. rate >10 Levothyroxine Sodium (Synthroid) 100 mcg PO DAILY@0600 [facility] Last Admin: 11/18/19 06:48 Dose: 100 mcg Documented by: Loratadine (Claritin) 10 mg PO DAILY [facility] Last Admin: 11/18/19 10:46 Dose: 10 mg Documented by: Melatonin (Melatonin) 3 mg PO QHS PRN PRN PRN Reason: INSOMNIA Morphine Sulfate () 2 mg IV Q3H PRN PRN PRN Reason: Pain Score 6-10/10 Last Admin: 11/17/19 12:09 Dose: 2 mg Documented by: Naloxone HCl (Narcan) 0.02 mg IV Q1M PRN PRN Reason: RR <10 and pt unresponsive Ondansetron HCl (Zofran) 4 mg IV Q8H PRN PRN PRN Reason: NAUSEA/VOMITING Sodium Chloride () 10 - 40 ml IV UD PRN PRN Reason: SALINE FLUSH Last Admin: 11/17/19 12:09 Dose: 20 ml Documented by: STROKE Vital Signs/Narrative: Vital Signs Temp Pulse Resp BP Pulse Ox 11/18/19 10:00 98.2 F 74 16 132/65 H 997 Medical Necessity - Tobacco Use Smoking Status: Former smoker Tobacco Use: Non-smoker - quit at least 20 years ago Assessment/Plan All Active Problems (Last Updated 11/15/19 @ 16:46 by Yisel Leija DPM) Infection of left breast (Acute) Segmental and somatic dysfunction of cervical region (Acute) Segmental and somatic dysfunction of lumbar region (Acute) Segmental and somatic dysfunction of thoracic region (Acute) Difficulty walking (Acute) Hyperthyroidism (Acute) Patient is a 54-year-old lady admitted by podiatry patient underwent Achilles tendon repair hospitalist service consulted for management of patient medical comorbidities 1. Status post Achilles tendon repair on 11/15/2019 ?Patient postoperative orders deferred to podiatry 2. Hypothyroidism ~patient is on levothyroxine home dose continued 3. Obstructive sleep apnea ?Patient on CPAP at night 4. Physical debility in view of above ?Consult placed to case management to assist with disposition 5. DVT prophylaxis ?On enoxaparin 6. Morbid obesity with BMI of 44 ?Weight loss advised Code Visit Inpatient E&M: 95887 Subs Hosp L2
[2019-11-18 16:00] VITALS: BP 117/66; PULSE 79; RESP 16; TEMP 36.8; O2SAT 99
--- NOTE | 2019-11-18 16:55 | PN_ITS ---
Patient Problems: Active and Suspected Problems (Last Updated 11/15/19 @ 16:46 by Yisel Leija DPM) Difficulty walking (Acute) Subjective: Patient relates she is not having any pain. She is resting comfortably sitting up in chair with foot elevated. He does not relate to any fever, chills, nausea, vomiting, shortness of breath, chest pain or calf pain. - Physical Exam Vitals/I&O's: Vital Signs Temp Pulse Resp BP Pulse Ox 98.2 F 74 16 132/65 H 97 11/18/19 10:00 11/18/19 10:00 11/18/19 10:00 11/18/19 10:11/18/19 11:00 Oxygen Flow Rate (L/min) 2 Oxygen Delivery Method Room Air Weight: 123.6 kg Body Mass Index (BMI) 43.9 Intake and Output for Last 24 Hours 11/16/19 11/17/19 11/18/19 23:59 23:59 23:59 Intake Total 1628.33 / 1628.33 250 / 450 400 / 400 Output Total 2600 / 2600 875 / 875 Balance -971.67 / -971.67 250 / 100 -475 / -475 General: Alert, Oriented x3, Cooperative, No apparent distress Extremities: - - Dressing right lower extremity clean, dry and intact, CFT < 2 seconds to all toes with normal temperature, patient able to wiggle and move toes with no problems or pain, no c/o pain to the foot or ankle, no calf pain, no evidence of DVT or infection at this time. Psych/Mental Status: Normal Affect, Appropriate, Alert and oriented to time, place, person, mood and affect Current Medications Hydrocodone Bitart/Acetaminophen ([place] 5mg-325mg) 2 tablet PO Q6H PRN PRN PRN Reason: Pain Score 4-5/10 Last Admin: 11/18/19 13:21 Dose: 2 tablet Documented by: Bupropion HCl (Wellbutrin Xl) 150 mg PO DAILY [facility] Last Admin: 11/18/19 10:46 Dose: 150 mg Documented by: Citalopram Hydrobromide (Celexa) 10 mg PO DAILY [facility] Last Admin: 11/18/19 10:46 Dose: 10 mg Documented by: Docusate Sodium (Colace) 100 mg PO BID PRN PRN PRN Reason: Constipation Last Admin: 11/17/19 08:37 Dose: 100 mg Documented by: Enoxaparin Sodium (Lovenox) 40 mg SC DAILY@0600 [facility] Last Admin: 11/18/19 06:48 Dose: 40 mg Documented by: Sodium Chloride () 250 mls @ 15 mls/hr IV .[id number] PRN PRN Reason: Saline Flush Sodium Chloride () 250 mls @ 15 mls/hr IV .[id number] PRN PRN Reason: Additional IVPB Infusion Naloxone HCl 4 mg/ Dextrose 504 mls @ 0 mls/hr IV .Q0M PRN; Protocol PRN Reason: To maintain Resp. rate >10 Levothyroxine Sodium (Synthroid) 100 mcg PO DAILY@0600 [facility] Last Admin: 11/18/19 06:48 Dose: 100 mcg Documented by: Loratadine (Claritin) 10 mg PO DAILY [facility] Last Admin: 11/18/19 10:46 Dose: 10 mg Documented by: Melatonin (Melatonin) 3 mg PO QHS PRN PRN PRN Reason: INSOMNIA Naloxone HCl (Narcan) 0.02 mg IV Q1M PRN PRN Reason: RR <10 and pt unresponsive Ondansetron HCl (Zofran) 4 mg IV Q8H PRN PRN PRN Reason: NAUSEA/VOMITING Sodium Chloride () 10 - 40 ml IV UD PRN PRN Reason: SALINE FLUSH Last Admin: 11/17/19 12:09 Dose: 20 ml Documented by: Medical Necessity - Tobacco Use Smoking Status: Former smoker Tobacco Use: Non-smoker - quit at least 20 years ago Assessment/Plan All Active Problems (Last Updated 11/15/19 @ 16:46 by Yisel Leija DPM) Infection of left breast (Acute) Segmental and somatic dysfunction of cervical region (Acute) Segmental and somatic dysfunction of lumbar region (Acute) Segmental and somatic dysfunction of thoracic region (Acute) Difficulty walking (Acute) Hyperthyroidism (Acute) Right lower extremity postoperative endoscopic gastrocnemius recession, repair of Achilles tear with de and reattachment of achilles with bone anchors including resection of the calcaneus spur and Yolande deformity, resection of peroneal tenosynivitis on 11/15/2019 Walking difficulty and fall risk Obesity Sleep apnea Hypothyroidism Anxiety Right lower extremity pain Patient is doing well. This patient underwent surgical correction of right lower extremity on 11/15/2019. To keep splint and dressing clean, dry, and intact. To ice and elevate for pain management. Her pain level continues to improve. Continue with [place] as prescribed. Plan for patient to be discharged to rehabilitation facility because she is not able to maintain a nonweightbearing status while entering and exiting her home that has stairs on both sides. Case management is on consultation. She was advised to maintain a strict nonweightbearing status with an assistive device to help. She did see physical therapy. She is on Lovenox for DVT prophylaxis. She was advised to continue with incentive spirometer while in-house as well. Medical management by hospitalist service is greatly appreciated. We will continue to follow her closely while in house. Please not hesitate to call if you have any questions.
[2019-11-18 19:40] VITALS: BP 132/87; PULSE 70; RESP 16; TEMP 36.6; O2SAT 98
[2019-11-19] MEDS: HYDROcodone Bitartrate/Apap 5/325 Tablet PO ×2 (02:09→08:38)
[2019-11-19 02:10] VITALS: BP 131/77; PULSE 65; RESP 16; TEMP 36.6; O2SAT 99
[2019-11-19] MEDS: Enoxaparin 40 MG/0.4 ML Syringe SC (06:36)
[2019-11-19] MEDS: Levothyroxine 100 MCG Tablet PO (06:36)
[2019-11-19] MEDS: 0.9% Saline Lock 10 ML Syringe IV (06:38)
[2019-11-19 07:37] VITALS: O2SAT 96
[2019-11-19 08:35] VITALS: BP 112/64; PULSE 78; RESP 16; TEMP 36.6; O2SAT 98
[2019-11-19] MEDS: Loratadine 10 MG Tablet PO (08:38)
[2019-11-19] MEDS: buPROPion (XL) 150 MG TABLET.XL PO (08:38)
[2019-11-19] MEDS: Citalopram 10 MG Tablet PO (08:38)
--- NOTE | 2019-11-19 09:25 | PCM.PN.HOSP ---
Patient Problems: Active and Suspected Problems (Last Updated 11/15/19 @ 16:46 by Yisel Leija DPM) Difficulty walking (Acute) Reason for Visit: Follow-up right Achilles tendon repair Subjective: Awaiting insurance precertification prior to transfer to the inpatient rehab unit Objective: GENERAL: cooperative HEENT: Atraumatic; EYES; Anicteric, Normal Conjunctiva NECK; supple, normal thyroid, RESPIRATORY: Diminished to auscultation CARDIOVASCULAR: Regular S1 S2, GI: soft, normoactive bowel sounds, : No Renal angle tenderness; EXTREMITIES: No edema, no clubbing, MUSCULOSKELETAL: Right foot/ankle in surgical dressing NEURO: Awake; no lateralizing signs. SKIN: No Rash PSYCH; Flat affect Vitals/I&O's: Vital Signs Temp Pulse Resp BP Pulse Ox 98 F 65 16 131/77 H 96 11/19/19 02:10 11/19/19 02:10 11/19/19 02:10 11/19/19 02:10 11/19/19 07:37 Oxygen Flow Rate (L/min) 2 Oxygen Delivery Method Room Air Weight: 123.6 kg Body Mass Index (BMI) 43.9 Intake and Output for Last 24 Hours 11/17/19 11/18/19 11/19/19 23:59 23:59 23:59 Intake Total 250 / 450 400 / 850 950 / 950 Output Total 875 / 875 600 / 600 Balance 250 / 100 -475 / -25 350 / 350 Current Medications Hydrocodone Bitart/Acetaminophen ([place] 5mg-325mg) 2 tablet PO Q6H PRN PRN PRN Reason: Pain Score 4-5/10 Last Admin: 11/19/19 08:38 Dose: 2 tablet Documented by: Bupropion HCl (Wellbutrin Xl) 150 mg PO DAILY [facility] Last Admin: 11/19/19 08:38 Dose: 150 mg Documented by: Citalopram Hydrobromide (Celexa) 10 mg PO DAILY [facility] Last Admin: 11/19/19 08:38 Dose: 10 mg Documented by: Docusate Sodium (Colace) 100 mg PO BID PRN PRN PRN Reason: Constipation Last Admin: 11/17/19 08:37 Dose: 100 mg Documented by: Enoxaparin Sodium (Lovenox) 40 mg SC DAILY@0600 [facility] Last Admin: 11/19/19 06:36 Dose: 40 mg Documented by: Sodium Chloride () 250 mls @ 15 mls/hr IV .[id number] PRN PRN Reason: Saline Flush Sodium Chloride () 250 mls @ 15 mls/hr IV .[id number] PRN PRN Reason: Additional IVPB Infusion Naloxone HCl 4 mg/ Dextrose 504 mls @ 0 mls/hr IV .Q0M PRN; Protocol PRN Reason: To maintain Resp. rate >10 Levothyroxine Sodium (Synthroid) 100 mcg PO DAILY@0600 [facility] Last Admin: 11/19/19 06:36 Dose: 100 mcg Documented by: Loratadine (Claritin) 10 mg PO DAILY [facility] Last Admin: 11/19/19 08:38 Dose: 10 mg Documented by: Melatonin (Melatonin) 3 mg PO QHS PRN PRN PRN Reason: INSOMNIA Naloxone HCl (Narcan) 0.02 mg IV Q1M PRN PRN Reason: RR <10 and pt unresponsive Ondansetron HCl (Zofran) 4 mg IV Q8H PRN PRN PRN Reason: NAUSEA/VOMITING Sodium Chloride () 10 - 40 ml IV UD PRN PRN Reason: SALINE FLUSH Last Admin: 11/19/19 06:38 Dose: 10 ml Documented by: STROKE Vital Signs/Narrative: Vital Signs Pulse Ox 11/19/19 07:37 96 Medical Necessity - Tobacco Use Smoking Status: Former smoker Tobacco Use: Non-smoker - quit at least 20 years ago Assessment/Plan All Active Problems (Last Updated 11/15/19 @ 16:46 by Yisel Leija DPM) Infection of left breast (Acute) Segmental and somatic dysfunction of cervical region (Acute) Segmental and somatic dysfunction of lumbar region (Acute) Segmental and somatic dysfunction of thoracic region (Acute) Difficulty walking (Acute) Hyperthyroidism (Acute) Patient is a 54-year-old lady admitted by podiatry patient underwent Achilles tendon repair hospitalist service consulted for management of patient medical comorbidities 1. Status post Achilles tendon repair on 11/15/2019 ?Patient postoperative orders deferred to podiatry ?Plan is for patient to be transferred to the inpatient rehab unit pending insurance precertification 2. Hypothyroidism ~patient is on levothyroxine home dose continued 3. Obstructive sleep apnea ?Patient on CPAP at night 4. Physical debility in view of above ?Consult placed to case management to assist with disposition 5. DVT prophylaxis ?On enoxaparin 6. Morbid obesity with BMI of 44 ?Weight loss advised Code Visit Inpatient E&M: 10151 Subs Hosp L2
--- NOTE | 2019-11-19 09:33 | CASEMGMT ---
Addendum entered by Felicia Stout 11/19/19 10:43: JANIE received call from [facility] with [facility] stating pre-cert has been obtained and pt is able to discharge to [facility] and requests discharge be completed SANDY. SW updated physician. SW updated pt on approval to [facility] and discharge today. Pt states understanding. Plan: [facility] today Original Note: Social Work Note SW spoke with [facility] with [facility] stating pre-cert is still pending. SW informed [facility] that pt is medically cleared once pre-cert is obtained. Plan: [facility] pending pre-cert Felicia Stout [employer], PROCUREMENT ANALYST
--- NOTE | 2019-11-19 10:46 | PCM.DC ---
- Discharge Diagnoses Current Active Problems: Current Active and Chronic Problems (Last Updated 11/15/19 @ 16:46 by Yisel Leija DPM) Partial tear of right Achilles tendon (Chronic) Calcaneal spur, right foot (Chronic) Peroneal tenosynovitis (Chronic) Gastrocnemius equinus of right lower extremity (Chronic) Difficulty walking (Acute) Pain of right lower extremity (Chronic) You will use the following diet at home:: No restrictions Your food should be the consistency of: Regular Allergies/Adverse Reactions: Allergies No Known Allergies Allergy (Verified 11/15/19 09:46) Medications to take at Discharge Cholecalciferol (Vitamin D3) [Vitamin D3] 10,000 unit PO QWEEK 12/22/16 Multivit-Min/Iron/Folic/Lutein [Centrum Silver Women Tablet] 1 ea PO DAILY 12/22/16 buPROPion XL [Wellbutrin Xl] 150 mg PO DAILY 12/22/16 Citalopram [Celexa] 10 mg PO DAILY 08/04/19 Cyanocobalamin (Vitamin B-12) [Vitamin B-12] 500 mcg PO DAILY 08/04/19 Levothyroxine Sodium 100 mcg PO DAILY 08/04/19 Docusate Sodium [Colace] 100 mg PO BID PRN PRN cap 11/19/19 Enoxaparin [Lovenox] 40 mg SUBCUT DAILY@0600 syringe 11/19/19 Hydrocodone Bitart/Apap 5-325 [[place] 5/325] 2 tab PO Q6H PRN PRN 1 Days #1 tab 11/19/19 Loratadine [Claritin] 10 mg PO DAILY tab 11/19/19 Melatonin 3 mg PO QHS PRN PRN tab 11/19/19 Primary Care Physician: Lisseth Momin DO [Primary Care Provider] - Please follow up with your Primary Care Physician in: in 2-3 weeks Test Results: Test results from this visit will be discussed in further detail at your follow-up appointment, if applicable. Please Follow Up With: Sin Miller DPM When: in 1-2 days Proposed Discharge Date: 11/19/19
--- NOTE | 2019-11-19 10:51 | PCM.DC.SUM ---
Discharge Date and Diagnosis - Problem List Patient Problems: Active and Suspected Problems (Last Updated 11/15/19 @ 16:46 by Yisel Leija DPM) Partial tear of right Achilles tendon (Acute) Date of Admission: 11/15/19 Date of Discharge: 11/19/19 - Primary Discharge Diagnosis Active and Suspected Problems (Last Updated 11/15/19 @ 16:46 by Yisel Leija DPM) Partial tear of right Achilles tendon (Acute) - Secondary Discharge Diagnosis Chronic Problems (Last Updated 11/15/19 @ 16:46 by Yisel Leija DPM) Calcaneal spur, right foot (Chronic) Peroneal tenosynovitis (Chronic) Gastrocnemius equinus of right lower extremity (Chronic) Pain of right lower extremity (Chronic) Hospital Course and Treatment Imaging Results: Clinical Impression(s) from Imaging Studies Os Calcis X-ray 11/15/19 12:00 IMPRESSION: Fluoroscopically guided bony resection as described above, for details please see operative report. Electronically Signed: Dariana Zheng MD at 1:01 EST , Service support , Os Calcis X-ray 11/15/19 17:42 IMPRESSION: Postoperative appearance of the calcaneus. Electronically Signed: Bailey Cleaning MD at 9:21 EST , Service support , Summary of Care Provided: Patient is a 54-year-old lady admitted by podiatry patient underwent Achilles tendon repair hospitalist service consulted for management of patient medical comorbidities 1. Status post Achilles tendon repair on 11/15/2019 ?Patient postoperative orders deferred to podiatry ?11/19/2019. Patient was transferred to the inpatient rehab unit once insurance precertification was obtained 2. Hypothyroidism ~patient is on levothyroxine home dose continued 3. Obstructive sleep apnea ?Patient on CPAP at night 4. Physical debility in view of above ?Consult placed to case management to assist with disposition 5. DVT prophylaxis ?On enoxaparin 6. Morbid obesity with BMI of 44 ?Weight loss advised Patient Problems: Active and Suspected Problems (Last Updated 01/24/20 @ 16:46 by Yisel Leija DPM) Partial tear of right Achilles tendon (Acute) - Physical Exam Vitals/I&O's: Vital Signs Temp Pulse Resp BP Pulse Ox 97.9 F 78 16 112/64 98 11/19/19 08:35 11/19/19 08:35 11/19/19 08:35 11/19/19 08:35 11/19/19 08:35 Oxygen Flow Rate (L/min) 2 Oxygen Delivery Method Room Air Weight: 123.6 kg Body Mass Index (BMI) 43.9 Intake and Output for Last 24 Hours 11/17/19 11/18/19 11/19/19 23:59 23:59 23:59 Intake Total 250 / 450 400 / 850 950 / 950 Output Total 875 / 875 600 / 600 Balance 250 / 100 -475 / -25 350 / 350 General: Alert HEENT: Atraumatic Neck: Supple Lungs: Diminished Cardiovascular: Regular rate, Regular Rhythm Current Medications Hydrocodone Bitart/Acetaminophen ([place] 5mg-325mg) 2 tablet PO Q6H PRN PRN PRN Reason: Pain Score 4-5/10 Last Admin: 11/19/19 08:38 Dose: 2 tablet Documented by: Bupropion HCl (Wellbutrin Xl) 150 mg PO DAILY [facility] Last Admin: 11/19/19 08:38 Dose: 150 mg Documented by: Citalopram Hydrobromide (Celexa) 10 mg PO DAILY [facility] Last Admin: 11/19/19 08:38 Dose: 10 mg Documented by: Docusate Sodium (Colace) 100 mg PO BID PRN PRN PRN Reason: Constipation Last Admin: 11/17/19 08:37 Dose: 100 mg Documented by: Enoxaparin Sodium (Lovenox) 40 mg SC DAILY@0600 [facility] Last Admin: 11/19/19 06:36 Dose: 40 mg Documented by: Sodium Chloride () 250 mls @ 15 mls/hr IV .[id number] PRN PRN Reason: Saline Flush Sodium Chloride () 250 mls @ 15 mls/hr IV .[id number] PRN PRN Reason: Additional IVPB Infusion Naloxone HCl 4 mg/ Dextrose 504 mls @ 0 mls/hr IV .Q0M PRN; Protocol PRN Reason: To maintain Resp. rate >10 Levothyroxine Sodium (Synthroid) 100 mcg PO DAILY@0600 [facility] Last Admin: 11/19/19 06:36 Dose: 100 mcg Documented by: Loratadine (Claritin) 10 mg PO DAILY [facility] Last Admin: 11/19/19 08:38 Dose: 10 mg Documented by: Melatonin (Melatonin) 3 mg PO QHS PRN PRN PRN Reason: INSOMNIA Naloxone HCl (Narcan) 0.02 mg IV Q1M PRN PRN Reason: RR <10 and pt unresponsive Ondansetron HCl (Zofran) 4 mg IV Q8H PRN PRN PRN Reason: NAUSEA/VOMITING Sodium Chloride () 10 - 40 ml IV UD PRN PRN Reason: SALINE FLUSH Last Admin: 11/19/19 06:38 Dose: 10 ml Documented by: Discharge Diet: No Restrictions Discharge Activity: Return to Normal Activity Home Medications: Medications to take at Discharge Cholecalciferol (Vitamin D3) [Vitamin D3] 10,000 unit PO QWEEK 12/22/16 Multivit-Min/Iron/Folic/Lutein [Centrum Silver Women Tablet] 1 ea PO DAILY 12/22/16 buPROPion XL [Wellbutrin Xl] 150 mg PO DAILY 12/22/16 Citalopram [Celexa] 10 mg PO DAILY 08/04/19 Cyanocobalamin (Vitamin B-12) [Vitamin B-12] 500 mcg PO DAILY 08/04/19 Levothyroxine Sodium 100 mcg PO DAILY 08/04/19 Docusate Sodium [Colace] 100 mg PO BID PRN PRN cap 11/19/19 Enoxaparin [Lovenox] 40 mg SUBCUT DAILY@0600 syringe 11/19/19 Hydrocodone Bitart/Apap 5-325 [[place] 5/325] 2 tab PO Q6H PRN PRN 1 Days #1 tab 11/19/19 Loratadine [Claritin] 10 mg PO DAILY tab 11/19/19 Melatonin 3 mg PO QHS PRN PRN tab 11/19/19 Primary Care Physician: Lisseth Momin DO [Primary Care Provider] - Please follow up with your Primary Care Physician in: in 2-3 weeks Please Follow Up With: Sin Miller DPM When: in 1-2 days Disposition: Inpt Rehab Unit/Facility Minutes spent on discharge:: 45 Patient Condition:: Stable Medical Necessity - Tobacco Use Smoking Status: Former smoker Tobacco Use: Non-smoker - quit at least 20 years ago Meaningful Use Info Meaningful Use Diagnoses (Choose all that apply): None applicable Code Visit Inpatient E&M: 59016 Disch Hosp
--- NOTE | 2019-11-19 12:29 | NURSING ---
report called to Tushar in rehab, he requests we transfer patient around 1300 to rehab 408, pt aware.
[2019-11-19 12:40] VITALS: BP 116/64; PULSE 75; RESP 16; TEMP 36.6; O2SAT 99
== END 2019-11-19 13:15 | DRG 314 ==
LOC: SDC 17:07 → MS3 11-16 07:03
PROVIDERS: Admitting Provider Podiatrist; Family Provider Family Medicine; PCP Family Medicine; Referring Provider Podiatrist; Visit Provider Internal Medicine
PROC: 0L8N0ZZ Division of Right Lower Leg Tendon, Open Approach (ICD-10-PCS; CPT 28119; principal; 2019-11-15 10:40)
PROC: 0L8N0ZZ Division of Right Lower Leg Tendon, Open Approach (ICD-10-PCS; CPT 29999; 2019-11-15 10:40)
DX: S86.011A Strain of right Achilles tendon, initial encounter (principal); M76.60 Achilles tendinitis, unspecified leg; M77.31 Calcaneal spur, right foot; M76.71 Peroneal tendinitis, right leg; R26.2 Difficulty in walking, not elsewhere classified; M21.6X1 Other acquired deformities of right foot; M65.861 Other synovitis and tenosynovitis, right lower leg; X58.XXXA Exposure to other specified factors, initial encounter; Y93.89 Activity, other specified; Y92.89 Other specified places as the place of occurrence of the external cause; Y99.8 Other external cause status; F32.9 Major depressive disorder, single episode, unspecified; E03.9 Hypothyroidism, unspecified; E66.01 Morbid (severe) obesity due to excess calories; F41.9 Anxiety disorder, unspecified; Z79.899 Other long term (current) drug therapy; Z68.41 Body mass index [BMI] 40.0-44.9, adult; G47.33 Obstructive sleep apnea (adult) (pediatric); Z87.891 Personal history of nicotine dependence; J30.9 Allergic rhinitis, unspecified; R53.81 Other malaise
CPT/HCPCS: 73650; 76000; 88304; 97110; 97116; 97162; 97165; 97530; 97535; 99251; J7120; A4216; G0463; J2405

== ENCOUNTER 2019-11-19 13:40 | Inpatient (IN) | payer MEDICAID, SELFPAY ==
[2019-11-15 09:40] VITALS: BMI 43.9
[2019-11-19 14:01] VITALS: BMI 43.7
[2019-11-19 14:03] VITALS: BP 122/65; PULSE 69; RESP 16; TEMP 36.8; O2SAT 95
[2019-11-19 14:15] VITALS: BMI 43.8
--- NOTE | 2019-11-19 14:33 | HP.PCM_ITS ---
Problem List (1) Infection of left breast Status: Resolved (2) Segmental and somatic dysfunction of cervical region Status: Inactive (3) Segmental and somatic dysfunction of lumbar region Status: Inactive (4) Segmental and somatic dysfunction of thoracic region Status: Inactive (5) Partial tear of right Achilles tendon Status: Acute Qualifiers: Encounter type: subsequent encounter Qualified Code(s): S86.011D - Strain of right Achilles tendon, subsequent encounter (6) Calcaneal spur, right foot Status: Chronic (7) Peroneal tenosynovitis Status: Chronic (8) Gastrocnemius equinus of right lower extremity Status: Chronic (9) Hyperthyroidism Status: Resolved Comment: now on thyroid replacement (10) DEANDRE (obstructive sleep apnea) Status: Acute (11) Morbid obesity Status: Acute (12) Depression with anxiety Status: Acute (13) Allergic rhinitis Status: Acute (14) Status post right foot surgery Status: Acute Comment: Endoscopic gastrocnemius recession, repair of Achilles tendon tear with de and reattachment of Achilles with bone anchors including resection of a calcaneal spur, resection of peroneal Tenosynovitis by Dr. Leija on 11/15/19 (15) Physical debility Status: Acute History of Present Illness Date of Admission: 11/19/19 Chief Complaint: Physical debility secondary to recent right lower extremity surgery with nonweightbearing on the right lower extremity and inability to get up the stairs to her house while nonweightbearing The patient is a 54-year-old female with a past medical history of obstructive sleep apnea, morbid obesity, hypothyroidism, depression/anxiety and a partial achilles tendon tear (denies injury or FQ use recently) who was taken to surgery by Dr. Leija on 11/15/2019 for 1. Achilles tendon debridement with repair of tear 2. Resection of posterior calcaneus spur and removal of retrocalcaneal inflamed bursa 3. Tenosynovectomy of Peroneus brevis tendon 4. Endoscopic gastrocnemius recession. She is admitted to the Inpatient rehab unit at [facility] on 11/19/2019 for debility secondary to recent surgery for greater than 3 hours of therapy daily with a goal of returning home at or near prior level of independence. The patient lives at home with her mother in a one-story apartment and has 7 steps to get in the house. At this time she is unable to get up the steps while maintaining non-weight bearing status. The patient was independent with ADL's, mobility and driving prior to hospitalization. Past Medical History Past Medical History (Chronic Problems): Chronic Problems (Last Updated 11/15/19 @ 16:46 by Yisel Leija DPM) Calcaneal spur, right foot (Chronic) Peroneal tenosynovitis (Chronic) Gastrocnemius equinus of right lower extremity (Chronic) Medical History: Medical History (Last Reviewed 11/19/19 @ 14:45 by Chelsy Loyola DO) Anxiety F41.9 Depression F32.9 Environmental allergies Z91.09 Hypothyroidism E03.9 Obesity, morbid, BMI 40.0-49.9 E66.01 Sleep apnea G47.30 Chronic headaches R51 Allergies No Known Allergies Allergy (Verified 11/15/19 09:46) Home Medications: Ambulatory Orders Medication Instructions Recorded Cholecalciferol (Vitamin D3) 10,000 unit PO QWEEK 12/22/16 [Vitamin D3] Multivit-Min/Iron/Folic/Lutein 1 ea PO DAILY 12/22/16 [Centrum Silver Women Tablet] buPROPion XL [Wellbutrin Xl] 150 mg PO DAILY 12/22/16 Citalopram [Celexa] 10 mg PO DAILY 08/04/19 Cyanocobalamin (Vitamin B-12) 500 mcg PO DAILY 08/04/19 [Vitamin B-12] Levothyroxine Sodium 100 mcg PO DAILY 08/04/19 Docusate Sodium [Colace] 100 mg PO BID PRN PRN cap 11/19/19 Enoxaparin [Lovenox] 40 mg SUBCUT DAILY@0600 11/19/19 Hydrocodone Bitart/Apap 5-325 2 tab PO Q6H PRN PRN 1 Days #1 tab 11/19/19 [[place] 5/325] Loratadine [Claritin] 10 mg PO DAILY 11/19/19 Melatonin 3 mg PO QHS PRN PRN tab 11/19/19 Surgical History: Surgical History (Last Reviewed 11/19/19 @ 14:45 by Chelsy Loyola DO) Hx of Achilles tendon repair Z98.890 Surgical History: - - left achilles repair with FDL tendon transfer (2008) right lower extremity on 11/15/2019 as noted Psychiatric History: Anxiety, Depression Lives: With Family Smoking Status: Former smoker - she only smoked for a few years and she quit in the Tobacco Use: Non-smoker Alcohol: Occasional Drugs: None - *Family History Maternal Family History: Family History (Last Reviewed 11/19/19 @ 14:46 by Chelsy Loyola DO) Other Asthma Heart disease Thyroid disorder History Items: Diabetes Paternal Family History: Family History (Last Reviewed 11/19/19 @ 14:46 by Chelsy Loyola DO) Other Asthma Heart disease Thyroid disorder History Items: - - Cardiac disease Review of Systems Constitutional: Denies: Anorexia, Chills, Fever, Malaise, Weight Change HEENT: Denies: Head Aches, Sinus Congestion, Sinus Drainage, Sore Throat Cardiovascular: Denies: Chest Pain, Light Headedness, Palpitations, Syncope Respiratory: Denies: Cough, Hemoptysis, Pleuritic Pain, Shortness of Breath, Shortness of breath at rest, Sputum production Gastrointestinal: Denies: Abdominal Pain, Constipation, Nausea, Vomiting Genitourinary: Denies: Dysuria Musculoskeletal: Reports: Leg Pain - R LE due to recent podiatric surgery to repair a partial R nelson's tendon tear. Denies: Joint Pain, Joint Tenderness Skin: Denies: Jaundice, Rash, Wounds Neurological: Denies: Numbness, Tingling, Focal weakness Psychiatric: Reports: Anxiety, Depression. Denies: Homicidal Ideations, Suicidal Ideations Endocrine: Reports: Hx of Thyroiditis. Denies: Change in Body Habitus Hematologic/ Lymphatic: Denies: Easy Bruising, Easy Bleeding, Hx of blood clot VTE Information - Inpt Only VTE Present on Admission: No VTE Mechan Device Prophylaxis: Knee High LINDSEY Hose VTE Pharm Prophylaxis ordered?: Yes Patient Problems: Active and Suspected Problems (Last Updated 11/15/19 @ 16:46 by Yisel Leija DPM) DEANDRE (obstructive sleep apnea) (Acute) Morbid obesity (Acute) Depression with anxiety (Acute) Allergic rhinitis (Acute) Status post right foot surgery (Acute) Endoscopic gastrocnemius recession, repair of Achilles tendon tear with de and reattachment of Achilles with bone anchors including resection of a calcaneal spur, resection of peroneal Tenosynovitis by Dr. Leija on 11/15/19 Physical debility (Acute) - Physical Exam Vitals/I&O's: Vital Signs Temp Pulse Resp BP Pulse Ox 98.2 F 69 16 122/65 H 95 11/19/19 14:03 11/19/19 14:03 11/19/19 14:03 11/19/19 14:03 11/19/19 14:03 Oxygen Delivery Method Room Air Weight: 271 lb 2.697 oz Body Mass Index (BMI) 43.7 General: Alert, Oriented x3, Cooperative HEENT: Atraumatic, PERRLA, EOMI, Normocephalic Oral: No Gingival or Mucosal Lesions/ Ulcerations, Dry Mucosa Neck: Supple, No JVD, Negative Carotid Bruits, No Nodes, Trachea Midline Lungs: Clear to auscultation, Normal air movement Cardiovascular: Regular rate, Regular Rhythm, Normal S1, Normal S2, No murmurs, No Ectopic Activity, No rub noted, No Gallop Abdomen: Bowel Sounds Present, Soft, Non Tender, Obese, - - No guarding with palpation Extremities: No clubbing, No cyanosis, No edema, Capillary Refill Less than 3 Seconds, - - There is a cast on the right lower extremity Skin: No rashes, No breakdown Musculoskeletal: No Muscle Wasting Neurological: Cranial nerves II-XII grossly intact, Neuro grossly intact Psych/Mental Status: Normal Affect, Appropriate Current Medications Hydrocodone Bitart/Acetaminophen ([place] 5mg-325mg) tablet PO Q6H PRN PRN PRN Reason: Pain Score 4-5/10 Bisacodyl (Dulcolax) 10 mg RECTAL .PRN X 1 PRN PRN Reason: Constipation Bupropion HCl (Wellbutrin Xl) 150 mg PO DAILY [facility] Citalopram Hydrobromide (Celexa) 10 mg PO DAILY [facility] Cyanocobalamin (Vitamin B12) 500 mcg PO DAILY [facility] Enoxaparin Sodium (Lovenox) 40 mg SC DAILY@0600 [facility] Levothyroxine Sodium (Synthroid) 100 mcg PO DAILY [facility] Loratadine (Claritin) 10 mg PO DAILY [facility] Magnesium Hydroxide (Milk Of Magnesia) 30 ml PO .PRN X 1 PRN PRN Reason: Constipation Melatonin (Melatonin) 3 mg PO QHS PRN PRN PRN Reason: INSOMNIA Non-Formulary Medication (Cholecalciferol (Vitamin D3) [Vitamin D3]) 10,000 unit PO QWEEK [facility] Non-Formulary Medication (Multivit-Min/Iron/Folic/Lutein [Centrum Silver Women Tablet]) 1 ea PO DAILY [facility] Polyethylene Glycol (Miralax) 17 gm PO DAILY PRN PRN PRN Reason: Constipation Assessment/Plan All Active Problems (Last Updated 11/15/19 @ 16:46 by Yisel Leija DPM) DEANDRE (obstructive sleep apnea) (Acute) Morbid obesity (Acute) Depression with anxiety (Acute) Allergic rhinitis (Acute) Status post right foot surgery (Acute) Physical debility (Acute) Partial tear of right Achilles tendon (Acute) Hyperthyroidism (Resolved) Infection of left breast (Resolved) Impressions 1. S/P surgery on the R ankle by Dr. Leija to repair R Achilles tendon tear on 11/15/2019 2. DEANDRE - wears CPAP and she brought her unit with her. 3. Hypothyroidism - continue the home dose of Levothyroid 4. Physical debility due to surgery distal RLE 5. Morbid obesity 6. Chronic depression-continue Wellbutrin and citalopram 7. Allergic rhinitis-continue Asha daily PLAN PT for gait stability OT for ADL's Analgesics as needed Bowel protocol Fall precautions Assess for Anxiety/Depression GI prophylaxis-not indicated DVT prophylaxis with Lovenox 40 mg subcu daily Follow up with Dr. Leija and Dr. Momin following DC from IP Rehab Check CBC and BMP in the AM She will have her family bring the knee walker in so she can work with PT with the walker to become proficient and safe with use Regular diet/high fiber Code Visit Inpatient E&M: 55347 Init Hosp L2
--- NOTE | 2019-11-19 14:54 | PCM.RU.PYE ---
Admission Information Primary Diagnosis:: Debility secondary to recent right lower extremity podiatric surgery for repair of partial right Achilles tendon tear Status Changes from Prescreening?: No changes Identified Actual Problem List:: Skin Intergrity, Depression, Mobility Impaired, Self Care Deficit, Alteration-Leisure Activ. Potential Problem List:: DVT, Bleeding, Infection, UTI, Falls, Skin Integrity, Depression Risk of Complications DVT: LMWH, LINDSEY Hose Bleeding: Monitor Lab Values, Nursing to Teach Precautions for anti-coagulation therapy., Wound, if applicable, to be assessed every shift., Stroke patients assessed for lethargy or change in status. Infection: Clinical Staff to Monitor for S/S of infection:, S/S of infection include fever, redness, warmth, etc. Urinary Tract Infection: Monitor for frequency, burning, discomfort, or incontinence., Nursing will obtain urine sample for urinalysis and C&S when ordered. Aspiration: Clinical staff will monitor for coughing, drooling, congestion., Speech will evaluate swallowing and dsyphasia., Nursing will monitor patient swallowing during meals. Falls: Patient will be evaluated for Fall Precautions, Patient will be placed on Fall Precautions as indicated per protocol. Skin Breakdown: Nursing will assess skin daily using assessment tool., Nursing will place on Skin Breakdown Precautions as indicated. Pain: Clinical staff will assess patient's pain level per protocol., Medications will be given, if needed, and the pain level reassessed., Other methods: Massage, distraction, decrease stimulus, etc. used PRN. Plan of Care Patient requires physician specializing in physical medicine and rehab oversight to provide close medical supervision of rehab issues including: Pain Management, Sleep Problems, Bowel and Bladder, Medical and co-morbidity Management, DVT prophylaxis, Rehabilitation Leadership, Coordination of treatment team Patient needs Physical Therapy: For a minimum of 1 hour, At least 5 out of 7 days Patient needs Physical Therapy to improve:: Mobility, Mobility, Mobility, Strengthening, Transfers, Stretching, ROM, Endurance, Stairs, Gait, Balance Patient needs Occupational Therapy: For a minimum of 1 hour, At least 5 out of 7 days Patient needs Occupational Therapy to improve ADL's incl.: Eating, Grooming, Bathing, Dressing, Toileting, Toilet transfers, Community Reintegration, Higher functioning activities, Household tasks, Adaptive Equipment, Splinting, Other activities as determined Patient requires 24/ Rehabilitation Nursing for: Pain Issues, Identifying and preventing risk factors, Monitoring and reporting current medical conditions, Assisting with ambulation, transfer, and all ADL's, Teaching patients about disease process and medications, Family teaching, Providing safe environment, Bowel and Bladder Issues, Skin integrity, Medication Management Patient needs Career Technical Education Instructor/ Case Management for: Discharge Planning, Arranging Home Equipment or Services, Family Interventions Patient needs Dietary and Nutrition Services for: Adequate Nutrition, Nutritional Supplements, Nutritional Education Goals Patient will remain: free from falls, or injury at time of discharge. Patient will perform bed mobility at: MOD I level of assist. Patient will complete transfers from bed to chair at: MOD I level of assist. Patient will ambulate: 100 feet, with MOD I assist, with LRD Patient will complete upper body dressing at: MOD I level of assist. Patient will complete lower body dressing at: MOD I level of assist. Patient will complete toileting at: MOD I level of assist. Patient will perform bathing at: MOD I level of assist. Patient will complete grooming at: MOD I level of assist. Patient will complete home management skills at: MOD I level of assist. Patient will achieve: 12 stairs, at MOD I assist Patient will have pain level of: of 3 or less Patient's skin will: remain intact, free from infection. Patient will receive: adequate nutrition. Discharge Planning Pt Prognosis for Sig. Practical Improv. w/in Reasonable Time: Good Estimated Length of stay (days): 10 Anticipated D/C Destination: Home with Home Health Was Preadmission Assessment Accurate?: Yes
[2019-11-19 18:45] VITALS: O2SAT 95
--- NOTE | 2019-11-19 18:50 | PN_ITS ---
Patient Problems: Active and Suspected Problems (Last Reviewed 11/19/19 @ 14:45 by Chelsy Loyola DO) DEANDRE (obstructive sleep apnea) (Acute) Morbid obesity (Acute) Depression with anxiety (Acute) Allergic rhinitis (Acute) Status post right foot surgery (Acute) Endoscopic gastrocnemius recession, repair of Achilles tendon tear with de and reattachment of Achilles with bone anchors including resection of a calcaneal spur, resection of peroneal Tenosynovitis by Dr. Leija on 11/15/19 Physical debility (Acute) Subjective: Patient relates she is doing well, has not needed any pain medication today so far. She is resting comfortably in bed with no complaints. - Physical Exam Vitals/I&O's: Vital Signs Temp Pulse Resp BP Pulse Ox 98.2 F 69 16 122/65 H 95 11/19/19 14:03 11/19/19 14:03 11/19/19 14:03 11/19/19 14:03 11/19/19 18:45 Oxygen Delivery Method Room Air Weight: 123.8 kg Body Mass Index (BMI) 43.7 General: Alert, Oriented x3, Cooperative, No apparent distress Extremities: - - Dressing to surgical foot clean, dry and intact, CFT < 2 seconds to all toes, no evidence of infection, DVT or complication. Current Medications Hydrocodone Bitart/Acetaminophen ([place] 5mg-325mg) 2 tablet PO Q6H PRN PRN PRN Reason: Pain Score 4-10/10 Bisacodyl (Dulcolax) 10 mg RECTAL .PRN X 1 PRN PRN Reason: Constipation Bupropion HCl (Wellbutrin Xl) 150 mg PO DAILY [facility] Cholecalciferol (Vitamin D) 10,000 unit PO [place] [facility] Citalopram Hydrobromide (Celexa) 10 mg PO DAILY [facility] Cyanocobalamin (Vitamin B12) 500 mcg PO DAILY [facility] Enoxaparin Sodium (Lovenox) 40 mg SC DAILY@0600 [facility] Levothyroxine Sodium (Synthroid) 100 mcg PO DAILY@0600 [facility] Loratadine (Claritin) 10 mg PO DAILY [facility] Magnesium Hydroxide (Milk Of Magnesia) 30 ml PO .PRN X 1 PRN PRN Reason: Constipation Melatonin (Melatonin) 3 mg PO QHS PRN PRN PRN Reason: INSOMNIA Multivitamins/Minerals (Multivitamin With Minerals) 1 tablet PO DAILY@0800 [facility] Polyethylene Glycol (Miralax) 17 gm PO DAILY PRN PRN PRN Reason: Constipation Medical Necessity - Tobacco Use Smoking Status: Former smoker - she only smoked for a few years and she quit in the Tobacco Use: Non-smoker Assessment/Plan All Active Problems (Last Reviewed 11/19/19 @ 14:45 by Chelsy Loyola, DO) DEANDRE (obstructive sleep apnea) (Acute) Morbid obesity (Acute) Depression with anxiety (Acute) Allergic rhinitis (Acute) Status post right foot surgery (Acute) Physical debility (Acute) Partial tear of right Achilles tendon (Acute) Hyperthyroidism (Resolved) Infection of left breast (Resolved) Right lower extremity postoperative endoscopic gastrocnemius recession, repair of Achilles tear with de and reattachment of achilles with bone anchors including resection of the calcaneus spur and Yolande deformity, resection of peroneal tenosynivitis on 11/15/2019 Walking difficulty and fall risk Obesity Sleep apnea Hypothyroidism Anxiety Right lower extremity pain Patient continues to do well. This patient underwent surgical correction of right lower extremity on 11/15/2019. To keep splint and dressing clean, dry, and intact. To ice and elevate for pain management. Her pain level continues to improve. Jay for pain management. She is now in rehab, has been evaluated by Dr. Loyola. Continue with nonweightbearing status to right foot. Lovenox for DVT prophylaxis. We will see patient at end of week for dressing change, sooner if needed.
[2019-11-19 19:38] VITALS: BP 121/81; PULSE 72; RESP 16; TEMP 36.9; O2SAT 95
[2019-11-19 19:45] VITALS: RESP 16; O2SAT 98
[2019-11-19] MEDS: HYDROcodone Bitartrate/Apap 5/325 Tablet PO (20:00)
--- NOTE | 2019-11-20 01:21 | NURSING ---
Reviewed and agree with CARE MANAGEMENT COORDINATOR documentation
[2019-11-20] MEDS: Levothyroxine 100 MCG Tablet PO (05:07)
[2019-11-20] MEDS: Enoxaparin 40 MG/0.4 ML Syringe SC (05:09)
[2019-11-20 05:39] LABS: Absolute Lymphocyte Count 1.45 X10^3/uL (0.83-4.51); Absolute Neutrophil Count 4.9 X10^3/uL (2.0-7.7); Basophil# 0.04 X10^3/uL; Basophil% 0.5 % (0-1); Eosinophil# 0.48 X10^3/uL; Eosinophils% 6.4 % (0-5); Hematocrit 39.1 % (37-47); Hemoglobin 12.2 g/dL (12.0-15.0); Lymphocyte # 1.45 X10^3/ul (4.0); Lymphocyte % 19.4 % (19-41); Mean Corp Hgb Conc 31.2 g/dL (32-36); Mean Corpuscular Volume 83.4 fL (81-99); Mean Platelet Vol. 9.3 fl (6.2-12.0); Monocyte# 0.58 X10^3/uL; Monocyte% 7.7 % (0-10); NRBC Flagged by Analyzer 0 % (0-5); Neutrophil # 4.87 X10^3/uL (2.7-7.7); Neutrophil % 65.1 % (47-70); Platelet Count 320 K/mm3 (150-450); RBC Distribution Width CV 14.8 % (11.6-14.6); RBC Distribution Width SD 44.9 fl (35.1-43.9); Red Blood Count 4.69 M/mm3 (4.2-5.4); White Blood Count 7.5 K/mm3 (4.4-11.0)
[2019-11-20 05:57] LABS: Anion Gap 4 (5-15); BUN 20 mg/dL (7-18); BUN/Creat Ratio 29.4 RATIO (10-20); Calcium,Total 9.2 mg/dL (8.5-10.1); Chloride 106 mmol/L (98-107); Creatinine, Serum 0.68 mg/dL (0.55-1.02); EST Glomerular Filtration Rate 96 mL/min (>60); Est Glom Filt Rate - Afr Amer 116 mL/min (>60); Estimated Creatinine Clearance 88.54 ml/min; Glucose 89 mg/dL (74-106); Magnesium 2.1 mg/dL (1.6-2.6); Potassium 3.9 mmol/L (3.5-5.1); Sodium Level 139 mmol/L (136-145)
[2019-11-20] MEDS: Loratadine 10 MG Tablet PO ×2 (08:10→08:14)
[2019-11-20] MEDS: Multivitamins,Ther W-Minerals Tablet 1 TABLET PO ×2 (08:10→08:14)
[2019-11-20] MEDS: Citalopram 10 MG Tablet PO ×2 (08:10→08:14)
[2019-11-20] MEDS: Cyanocobalamin 500 MCG Tablet PO ×2 (08:10→08:14)
[2019-11-20] MEDS: buPROPion (XL) 150 MG TABLET.XL PO ×2 (08:11→08:14)
[2019-11-20] MEDS: HYDROcodone Bitartrate/Apap 5/325 Tablet PO ×2 (08:13→16:27)
[2019-11-20 09:03] VITALS: BP 109/68; PULSE 62; RESP 16; TEMP 36.4; O2SAT 95
--- NOTE | 2019-11-20 16:00 | CASEMGMT ---
Social Work Reviewed and agreed with social work documentation on this date. Franchesca Arora, GLASS MOLD REPAIRER CUSTOMER SUPPORT ASSISTANT
[2019-11-20 20:38] VITALS: BP 140/85; PULSE 78; RESP 18; TEMP 36.8; O2SAT 98
--- NOTE | 2019-11-21 02:09 | NURSING ---
Reviewed and agree with CASINO RUNNER documentation.
[2019-11-21] MEDS: Enoxaparin 40 MG/0.4 ML Syringe SC (05:54)
[2019-11-21] MEDS: Levothyroxine 100 MCG Tablet PO (05:54)
[2019-11-21] MEDS: HYDROcodone Bitartrate/Apap 5/325 Tablet PO ×3 (05:54→22:13)
[2019-11-21 09:25] VITALS: BP 122/68; PULSE 71; RESP 18; TEMP 36.8; O2SAT 95
--- NOTE | 2019-11-21 12:04 | CASEMGMT ---
Social Work IDT met with patient for Team Meeting. Discussed patient's progress in therapy. Pt is CGA to min assist for transfers, walking 10 ft with FWW and knee sling while maintaining NWBS, using the knee scooter for longer distances which is more efficient, and can perform all ADLS SBA while seated. Pain is controlled and sleeping well. Pt appreciative of all RU staff. Explained insurance coverage with [employer] 11/22 and continued stay is not guaranteed Will continue to follow. Franchesca Arora, TANK CAR REPAIRER DIRECTOR CHILD ABUSE THERAPY
--- NOTE | 2019-11-21 15:50 | PCM.PN.BLA ---
Progress Note Patient was seen on team rounds today. There was no family present. Afebile VSS Maintaining appropriate oxygen saturation on RA Oral intake is good Discussed with nursing - no problems that need addressed Reviewed the PT/OT notes Medication list reviewed. Pain is adequately controlled. No N/V. Denies constipation and diarrhea. No SOB or CP. Alert and oriented x3, no apparent distress, doing well with the knee walker Lungs-clear to hospitalization Heart-regular rate and rhythm Abdomen-soft, nontender, nondistended Intact sensation to both feet Impressions 1. debility due to recent R Achilles tendon tear and subsequent repair. Continue therapy. One of the biggest stumbling blocks will be stairs and getting in an out of a small BR. No change in the meds.
[2019-11-21 19:32] VITALS: BP 127/73; PULSE 65; RESP 16; TEMP 36.6; O2SAT 99
--- NOTE | 2019-11-22 04:36 | NURSING ---
REVIEWED AND AGREE WITH BOILERMAKER WELDER'S FUNCTIONAL ASSESSMENT AND HANDOFF CHARTING.
[2019-11-22] MEDS: HYDROcodone Bitartrate/Apap 5/325 Tablet PO ×3 (05:00→22:37)
[2019-11-22] MEDS: Levothyroxine 100 MCG Tablet PO (06:20)
[2019-11-22] MEDS: Enoxaparin 40 MG/0.4 ML Syringe SC (06:20)
[2019-11-22 08:46] VITALS: BP 99/55; PULSE 65; RESP 16; TEMP 36.7; O2SAT 95
[2019-11-22] MEDS: Citalopram 10 MG Tablet PO (09:39)
[2019-11-22] MEDS: Cyanocobalamin 500 MCG Tablet PO (09:39)
[2019-11-22] MEDS: Multivitamins,Ther W-Minerals Tablet 1 TABLET PO (09:39)
[2019-11-22] MEDS: Loratadine 10 MG Tablet PO (09:39)
[2019-11-22] MEDS: buPROPion (XL) 150 MG TABLET.XL PO (09:39)
--- NOTE | 2019-11-22 13:33 | PN_ITS ---
Patient Problems: Active and Suspected Problems (Last Reviewed 11/19/19 @ 14:45 by Chelsy Loyola DO) DEANDRE (obstructive sleep apnea) (Acute) Morbid obesity (Acute) Depression with anxiety (Acute) Allergic rhinitis (Acute) Status post right foot surgery (Acute) Endoscopic gastrocnemius recession, repair of Achilles tendon tear with de and reattachment of Achilles with bone anchors including resection of a calcaneal spur, resection of peroneal Tenosynovitis by Dr. Leija on 11/15/19 Physical debility (Acute) Subjective: This 54-year-old female was seen 1 week postoperative right lower extremity Achilles tendon tear repair with exostectomy of the calcaneus, endoscopic gastrocnemius recession, and peroneal tendon repair. She relates her pain at worst is a 4-10. She denies fever, chill, nausea, vomiting, loss of appetite, chest pain, calf pain, shortness of breath. She is in the rehabilitation unit at this time and is making good progress. She is still trying to learn how to ascend and descend stairs. - Physical Exam Vitals/I&O's: Vital Signs Temp Pulse Resp BP Pulse Ox 98.0 F 65 16 99/55 L 95 11/22/19 08:46 11/22/19 08:46 11/22/19 08:46 11/22/19 08:46 11/22/19 08:46 Oxygen Delivery Method Room Air Weight: 123.8 kg Body Mass Index (BMI) 43.7 Intake and Output for Last 24 Hours 11/20/19 11/21/19 11/22/19 23:59 23:59 23:59 Intake Total 960 / 960 260 / 260 Output Total 900 / 900 Balance 60 / 60 260 / 260 General: Alert, Oriented x3, Cooperative Extremities: No cyanosis, Capillary Refill Less than 3 Seconds, No Calf Tenderness, Diminished Peripheral Pulses, Edema Skin: Incision - Well aligned and coapted to posterior leg, posterior heel, and lateral ankle. There is no purulence, erythema, necrosis, infection, streaking, or odor. The nylon sutures intact without gapping or dehiscence Musculoskeletal: No Tenderness to Palpation of Joints or Extremities, No Muscle Wasting, - - After range of motion digits x5 right. Negative Liam and Schroeder sign. No pain on palpation to surgical limb Neurological: - - Epicritic sensation is intact to light touch to foot and ankle dermatomes of the right lower extremity with slight diminished to the lateral proximal foot. It is noted that there is normal sensation to all of the digits. Psych/Mental Status: Normal Affect, Appropriate Current Medications Hydrocodone Bitart/Acetaminophen (Clarinda 5mg-325mg) 2 tablet PO Q6H PRN PRN PRN Reason: Pain Score 4-10/10 Last Admin: 11/22/19 05:00 Dose: 2 tablet Documented by: Bisacodyl (Dulcolax) 10 mg RECTAL .PRN X 1 PRN PRN Reason: Constipation Bupropion HCl (Wellbutrin Xl) 150 mg PO DAILY [facility] Last Admin: 11/22/19 09:39 Dose: 150 mg Documented by: Cholecalciferol (Vitamin D) 10,000 unit PO [facility] Citalopram Hydrobromide (Celexa) 10 mg PO DAILY [facility] Last Admin: 11/22/19 09:39 Dose: 10 mg Documented by: Cyanocobalamin (Vitamin B12) 500 mcg PO DAILY [facility] Last Admin: 11/22/19 09:39 Dose: 500 mcg Documented by: Enoxaparin Sodium (Lovenox) 40 mg SC DAILY@0600 [facility] Last Admin: 11/22/19 06:20 Dose: 40 mg Documented by: Levothyroxine Sodium (Synthroid) 100 mcg PO DAILY@0600 [facility] Last Admin: 11/22/19 06:20 Dose: 100 mcg Documented by: Loratadine (Claritin) 10 mg PO DAILY [facility] Last Admin: 11/22/19 09:39 Dose: 10 mg Documented by: Magnesium Hydroxide (Milk Of Magnesia) 30 ml PO .PRN X 1 PRN PRN Reason: Constipation Melatonin (Melatonin) 3 mg PO QHS PRN PRN PRN Reason: INSOMNIA Multivitamins/Minerals (Multivitamin With Minerals) 1 tablet PO DAILY@0800 [facility] Last Admin: 11/22/19 09:39 Dose: 1 tablet Documented by: Polyethylene Glycol (Miralax) 17 gm PO DAILY PRN PRN PRN Reason: Constipation Medical Necessity - Tobacco Use Smoking Status: Former smoker - she only smoked for a few years and she quit in the Tobacco Use: Non-smoker Assessment/Plan All Active Problems (Last Reviewed 11/19/19 @ 14:45 by Angelica Sementi, DO) DEANDRE (obstructive sleep apnea) (Acute) Morbid obesity (Acute) Depression with anxiety (Acute) Allergic rhinitis (Acute) Status post right foot surgery (Acute) Physical debility (Acute) Partial tear of right Achilles tendon (Acute) Hyperthyroidism (Resolved) Infection of left breast (Resolved) Right lower extremity postoperative endoscopic gastrocnemius recession, repair of Achilles tear with de and reattachment of achilles with bone anchors including resection of the calcaneus spur and Yolande deformity, resection of peroneal tenosynivitis on 11/15/2019 Walking difficulty and fall risk Obesity Sleep apnea Hypothyroidism Anxiety Right lower extremity pain Patient continues to do well. The postoperative dressing was changed today and a new Adaptic, gauze, abdominal pads, Kerlix dressing was applied. A well- padded posterior mold was also reapplied slightly plantarflexed position to protect her recent repair site. She was advised to keep the splint and dressing clean, dry, and intact. To ice and elevate for pain management. Her pain level continues to improve. Jay for pain management. She is now in rehab, has been evaluated by Dr. Loyola which is greatly appreciated. Continue with nonweightbearing status to right foot. Lovenox for DVT prophylaxis. We will see patient weekly while in the rehabilitation unit. To follow-up with Dr. Leija after discharge at the foot and ankle center. Please do not hesitate to call if you have any questions. Yisel Leija DPM, FACFAS [facility] [phone]
[2019-11-22 22:00] VITALS: BP 106/59; PULSE 60; RESP 16; TEMP 36.5; O2SAT 94
[2019-11-23] MEDS: Enoxaparin 40 MG/0.4 ML Syringe SC (05:42)
[2019-11-23] MEDS: Levothyroxine 100 MCG Tablet PO (05:42)
[2019-11-23 07:00] VITALS: BP 121/81; PULSE 62; RESP 16; TEMP 36.6; O2SAT 99
[2019-11-23] MEDS: Citalopram 10 MG Tablet PO (07:56)
[2019-11-23] MEDS: HYDROcodone Bitartrate/Apap 5/325 Tablet PO ×3 (07:56→22:18)
[2019-11-23] MEDS: Cyanocobalamin 500 MCG Tablet PO (07:56)
[2019-11-23] MEDS: Multivitamins,Ther W-Minerals Tablet 1 TABLET PO (07:56)
[2019-11-23] MEDS: Loratadine 10 MG Tablet PO (07:56)
[2019-11-23] MEDS: buPROPion (XL) 150 MG TABLET.XL PO (07:56)
[2019-11-23 19:41] VITALS: BP 118/75; PULSE 76; RESP 20; TEMP 36.6; O2SAT 99
[2019-11-24] MEDS: Levothyroxine 100 MCG Tablet PO (05:13)
[2019-11-24] MEDS: Enoxaparin 40 MG/0.4 ML Syringe SC (05:13)
[2019-11-24 07:11] VITALS: BP 109/58; PULSE 64; RESP 20; TEMP 36.4; O2SAT 94
[2019-11-24] MEDS: Citalopram 10 MG Tablet PO (08:11)
[2019-11-24] MEDS: Multivitamins,Ther W-Minerals Tablet 1 TABLET PO (08:11)
[2019-11-24] MEDS: Loratadine 10 MG Tablet PO (08:11)
[2019-11-24] MEDS: Cyanocobalamin 500 MCG Tablet PO (08:11)
[2019-11-24] MEDS: buPROPion (XL) 150 MG TABLET.XL PO (08:11)
[2019-11-24] MEDS: HYDROcodone Bitartrate/Apap 5/325 Tablet PO ×2 (09:38→22:36)
[2019-11-24 19:31] VITALS: BP 107/68; PULSE 70; RESP 12; TEMP 36.7; O2SAT 95
[2019-11-25] MEDS: HYDROcodone Bitartrate/Apap 5/325 Tablet PO ×3 (06:13→22:30)
[2019-11-25] MEDS: Levothyroxine 100 MCG Tablet PO (06:14)
[2019-11-25] MEDS: Enoxaparin 40 MG/0.4 ML Syringe SC (06:14)
[2019-11-25 08:03] VITALS: BP 131/58; PULSE 66; RESP 16; TEMP 36.6; O2SAT 98
[2019-11-25] MEDS: Cyanocobalamin 500 MCG Tablet PO (08:57)
[2019-11-25] MEDS: buPROPion (XL) 150 MG TABLET.XL PO (08:57)
[2019-11-25] MEDS: Loratadine 10 MG Tablet PO (08:57)
[2019-11-25] MEDS: Multivitamins,Ther W-Minerals Tablet 1 TABLET PO (08:57)
[2019-11-25] MEDS: Citalopram 10 MG Tablet PO (08:57)
[2019-11-25 20:59] VITALS: BP 132/76; PULSE 69; RESP 18; TEMP 36.7; O2SAT 99
[2019-11-26] MEDS: Levothyroxine 100 MCG Tablet PO (05:33)
[2019-11-26] MEDS: Enoxaparin 40 MG/0.4 ML Syringe SC (05:34)
[2019-11-26 07:00] VITALS: BP 116/63; PULSE 62; RESP 16; TEMP 36.4; O2SAT 98
[2019-11-26] MEDS: buPROPion (XL) 150 MG TABLET.XL PO (07:52)
[2019-11-26] MEDS: Loratadine 10 MG Tablet PO (07:52)
[2019-11-26] MEDS: Multivitamins,Ther W-Minerals Tablet 1 TABLET PO (07:52)
[2019-11-26] MEDS: Cyanocobalamin 500 MCG Tablet PO (07:52)
[2019-11-26] MEDS: Citalopram 10 MG Tablet PO (07:52)
[2019-11-26] MEDS: HYDROcodone Bitartrate/Apap 5/325 Tablet PO ×3 (09:00→21:56)
--- NOTE | 2019-11-26 16:19 | CASEMGMT ---
Social Work Spoke with pt to notify her of insurance approval with [employer] 12/02 and requesting DC plans. Reviewed DME needs - pt requesting BSC, FWW with knee sling. [employer] does not sell knee slings - contacted [facility] whom has one in stock but not covered by insurance. Notified pt knee sling would be about $100 private pay - pt to notify SW if she would like that purchased. Inquired about completing AD - pt would like those completed after she speaks with sister whom she would like to have as HPOA. Will continue to follow and ReTeam . Franchesca Arora, LICENSED INVESTMENT SALES ASSISTANT PRODUCT SAFETY OFFICER
[2019-11-26 19:40] VITALS: BP 116/68; PULSE 68; RESP 16; TEMP 37; O2SAT 96
[2019-11-27] MEDS: Levothyroxine 100 MCG Tablet PO (05:49)
[2019-11-27] MEDS: Enoxaparin 40 MG/0.4 ML Syringe SC (05:49)
[2019-11-27] MEDS: Loratadine 10 MG Tablet PO (07:43)
[2019-11-27] MEDS: Citalopram 10 MG Tablet PO (07:43)
[2019-11-27] MEDS: Multivitamins,Ther W-Minerals Tablet 1 TABLET PO (07:43)
[2019-11-27] MEDS: Cyanocobalamin 500 MCG Tablet PO (07:44)
[2019-11-27] MEDS: buPROPion (XL) 150 MG TABLET.XL PO (07:44)
[2019-11-27] MEDS: HYDROcodone Bitartrate/Apap 5/325 Tablet PO ×3 (07:46→21:54)
[2019-11-27 08:53] VITALS: BP 112/71; PULSE 67; RESP 16; TEMP 36.4; O2SAT 98
--- NOTE | 2019-11-27 11:45 | PCM.PN.BLA ---
Progress Note Afebile VSS Maintaining appropriate oxygen saturation on RA Oral intake is good Discussed with nursing - no problems that need addressed Reviewed the PT/OT notes Medication list reviewed. She started complaining of left shoulder pain yesterday and has been using the polar ice with good relief. Denies cough, shortness of breath, chest pain, diarrhea, constipation, nausea, vomiting. The pain in her right lower extremity is adequately controlled. PHYSICAL EXAM: GENERAL: alert, oriented X 3, Cooperative, NAD, watching [employer] when I entered the room. ORAL: moist mucosa, no mucosal lesions NECK: No JVD, supple, trachea midline LUNGS: CTA, symmetric chest expansion HEART: RRR, Normal S1 and S2, no rub, no gallop ABDOMEN: soft, NT, ND, BS present, no guarding with palpation EXTREMITIES: She has full ROM of the left shoulder. She has some pain in the biceps tendon with pushing herself up from the chair. There is no swelling in the joint and no increased warmth to touch or erythema. SKIN: No rashes, no breakdown NEUROLOGIC: no focal neurologic deficits PSYCH: appropriate, normal affect, pleasant Impressions 1. Debility secondary to surgical repair of a partial right Achilles tear 2. left shoulder pain with biceps tendonitis due to overuse type injury Continue to ice the left shoulder for 10 to 15 minutes 4 times daily. Start capsaicin 3 times daily as needed to the left shoulder. If the medication machado too much will add EMLA cream Add a NSAID - D/W Dr. Goodrich STROKE Vital Signs/Narrative: Vital Signs Temp Pulse Resp BP Pulse Ox 11/27/19 08:53 97.5 F L 67 16 112/71 98 Code Visit Inpatient E&M: 46496 Subs Hosp L2
--- NOTE | 2019-11-27 16:02 | CASEMGMT ---
Social Work Completed Advanced Directives with pt. Copies placed in chart. Bailey Meyers, social work health information internship Franchesca Arora, CAREER RESOURCE SPECIALIST CONTRACT [employer]
[2019-11-27] MEDS: Capsaicin 0.025% 1 APPLIC Tube TOPICAL (17:49)
[2019-11-27 19:31] VITALS: BP 125/67; PULSE 65; RESP 16; TEMP 36.8; O2SAT 97
[2019-11-27] MEDS: Celecoxib 200 MG Capsule PO (20:35)
--- NOTE | 2019-11-28 03:52 | NURSING ---
REVIEWED AND AGREE WITH LIFE CONSULTANT'S HANDOFF AND FUNCTIONAL ASSESSMENT.
[2019-11-28] MEDS: Levothyroxine 100 MCG Tablet PO (05:20)
[2019-11-28] MEDS: Enoxaparin 40 MG/0.4 ML Syringe SC (05:20)
[2019-11-28 07:51] VITALS: BP 131/74; PULSE 69; RESP 18; TEMP 36.6; O2SAT 97
[2019-11-28] MEDS: HYDROcodone Bitartrate/Apap 5/325 Tablet PO ×2 (10:08→22:12)
[2019-11-28] MEDS: Multivitamins,Ther W-Minerals Tablet 1 TABLET PO (10:08)
[2019-11-28] MEDS: Loratadine 10 MG Tablet PO (10:08)
[2019-11-28] MEDS: buPROPion (XL) 150 MG TABLET.XL PO (10:08)
[2019-11-28] MEDS: Celecoxib 200 MG Capsule PO ×2 (10:08→20:34)
[2019-11-28] MEDS: Cyanocobalamin 500 MCG Tablet PO (10:08)
[2019-11-28] MEDS: Citalopram 10 MG Tablet PO (10:09)
--- NOTE | 2019-11-28 16:01 | CASEMGMT ---
Team meeting held today with pt present. Pt is participating in PT/OT and progressing well. 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 Pt aware that next insurance review is 12/02 and continued stay is not guaranteed. Pt stating that she is planning on calling [facility] to inquire about the knee sling that they have available. Pt is uncertain at this time if she will d/c with this. Pt will need a FWW and BSC upon d/c. No further therapy is recommended. Will continue with treatment plan at this time and reteam next week. JOEY Robertson
--- NOTE | 2019-11-28 19:07 | PCM.PN.BLA ---
Progress Note Seen on TEAM rounds today. No family present. Afebile VSS Maintaining appropriate oxygen saturation on RA Oral intake is good. [] Discussed with nursing - no problems that need addressed Reviewed the PT/OT notes Medication list reviewed. The Left shoulder pain is doing better. Likes the Capsacin. Also started on NSAID PHYSICAL EXAM: GENERAL: alert, oriented X 3, Cooperative, NAD ORAL: moist mucosa, no mucosal lesions NECK: No JVD, supple, trachea midline LUNGS: CTA, symmetric chest expansion HEART: RRR, Normal S1 and S2, no rub, no gallop ABDOMEN: soft, NT, ND, BS present, no guarding with palpation EXTREMITIES: no edema, no cyanosis, no calf tenderness SKIN: No rashes, no breakdown NEUROLOGIC: no focal neurologic deficits PSYCH: appropriate, normal affect, pleasant Impressions 1. Physical debility secondary to recent right partial Achilles tendon repair by Dr. Leija 2. Left shoulder pain secondary to tendinitis due to an overuse syndrome Continue therapy, NSAID, Zostrix and ice after therapy Code Visit Inpatient E&M: 96332 Subs Hosp L2
[2019-11-28] MEDS: Capsaicin 0.025% 1 APPLIC Tube TOPICAL (20:34)
[2019-11-28 20:46] VITALS: BP 111/82; PULSE 67; RESP 14; TEMP 36.4; O2SAT 97
[2019-11-29] MEDS: Enoxaparin 40 MG/0.4 ML Syringe SC (06:08)
[2019-11-29] MEDS: Levothyroxine 100 MCG Tablet PO (06:08)
[2019-11-29] MEDS: Capsaicin 0.025% 1 APPLIC Tube TOPICAL (06:14)
[2019-11-29] MEDS: buPROPion (XL) 150 MG TABLET.XL PO (07:30)
[2019-11-29] MEDS: Loratadine 10 MG Tablet PO (07:30)
[2019-11-29] MEDS: Cyanocobalamin 500 MCG Tablet PO (07:30)
[2019-11-29] MEDS: Celecoxib 200 MG Capsule PO ×2 (07:30→20:41)
[2019-11-29] MEDS: Citalopram 10 MG Tablet PO (07:30)
[2019-11-29] MEDS: Multivitamins,Ther W-Minerals Tablet 1 TABLET PO (07:30)
[2019-11-29 08:04] VITALS: BP 135/60; PULSE 66; RESP 18; TEMP 36.9; O2SAT 96
[2019-11-29] MEDS: HYDROcodone Bitartrate/Apap 5/325 Tablet PO ×2 (10:10→20:42)
--- NOTE | 2019-11-29 19:47 | PCM.PROGNOTE ---
Patient Problems: Active and Suspected Problems (Last Reviewed 11/19/19 @ 14:45 by Chelsy Loyola DO) DEANDRE (obstructive sleep apnea) (Acute) Morbid obesity (Acute) Depression with anxiety (Acute) Allergic rhinitis (Acute) Status post right foot surgery (Acute) Endoscopic gastrocnemius recession, repair of Achilles tendon tear with de and reattachment of Achilles with bone anchors including resection of a calcaneal spur, resection of peroneal Tenosynovitis by Dr. Leija on 11/15/19 Physical debility (Acute) Subjective: This 54-year-old female was seen bedside approximately 2 weeks postoperative right lower extremity. Her pain is rated as a 0 out of 10. She relates some discomfort only after therapy sessions. She has kept her dressing and splint clean and intact as advised. She relates she has been progressing well with therapy and is hopeful to return home next week. She denies fever, chill, nausea, vomiting, shortness of breath, calf pain, or chest pain. - Physical Exam Vitals/I&O's: Vital Signs Temp Pulse Resp BP Pulse Ox 98.4 F 66 18 135/60 H 96 11/29/19 08:04 11/29/19 08:04 11/29/19 08:04 11/29/19 08:04 11/29/19 08:04 Oxygen Delivery Method Room Air Weight: 123.8 kg Body Mass Index (BMI) 43.7 Intake and Output for Last 24 Hours 11/27/19 11/28/19 11/29/19 23:59 23:59 23:59 Intake Total 1200 / 1200 840 / 840 1080 / 1080 Output Total 450 / 450 500 / 500 750 / 750 Balance 750 / 750 340 / 340 330 / 330 General: Alert, Oriented x3, Cooperative Extremities: No cyanosis, Capillary Refill Less than 3 Seconds, No Calf Tenderness - Negative Liam and Schroeder sign right lower extremity, Edema - Decreased right lower extremity, Peripheral Pulses Normal, - - Improved ankle dorsiflexion compared to preoperative status Skin: Incision - Well aligned and coapted to the posterior heel, lateral ankle at the peroneal tendon repair site and also to the posterior medial lateral lower leg where the endoscopic gastrocnemius recession was performed. There is no gapping, streaking, active drainage, odor, or signs of infection noted. Musculoskeletal: No Tenderness to Palpation of Joints or Extremities, No Muscle Wasting, - - No pain to palpate surgical site. Compartments remain soft to palpate right lower extremity. Active range of motion noted to all digits of the right foot. Active range of motion in the sagittal plane is noted to the surgical limb Neurological: Sensory exam intact to light touch and pain - Foot and ankle and leg dermatomes right lower extremity Psych/Mental Status: Normal Affect, Appropriate Current Medications Hydrocodone Bitart/Acetaminophen ([place] 5mg-325mg) 2 tablet PO Q6H PRN PRN PRN Reason: Pain Score 4-10/10 Last Admin: 11/29/19 10:10 Dose: 2 tablet Documented by: Bisacodyl (Dulcolax) 10 mg RECTAL .PRN X 1 PRN PRN Reason: Constipation Bupropion HCl (Wellbutrin Xl) 150 mg PO DAILY [facility] Last Admin: 11/29/19 07:30 Dose: 150 mg Documented by: Capsaicin (Zostrix) 1 applic TOPICAL TID PRN PRN; Protocol PRN Reason: Pain Score 1-10/10 Last Admin: 11/29/19 06:14 Dose: 1 applicatio Documented by: Celecoxib (Celebrex) 200 mg PO BID [facility] Last Admin: 11/29/19 07:30 Dose: 200 mg Documented by: Cholecalciferol (Vitamin D) 10,000 unit PO [place] [facility] Last Admin: 11/24/19 08:12 Dose: 10,000 unit Documented by: Citalopram Hydrobromide (Celexa) 10 mg PO DAILY [facility] Last Admin: 11/29/19 07:30 Dose: 10 mg Documented by: Cyanocobalamin (Vitamin B12) 500 mcg PO DAILY [facility] Last Admin: 11/29/19 07:30 Dose: 500 mcg Documented by: Enoxaparin Sodium (Lovenox) 40 mg SC DAILY@0600 [facility] Last Admin: 11/29/19 06:08 Dose: 40 mg Documented by: Levothyroxine Sodium (Synthroid) 100 mcg PO DAILY@0600 [facility] Last Admin: 11/29/19 06:08 Dose: 100 mcg Documented by: Loratadine (Claritin) 10 mg PO DAILY [facility] Last Admin: 11/29/19 07:30 Dose: 10 mg Documented by: Magnesium Hydroxide (Milk Of Magnesia) 30 ml PO .PRN X 1 PRN PRN Reason: Constipation Melatonin (Melatonin) 3 mg PO QHS PRN PRN PRN Reason: INSOMNIA Multivitamins/Minerals (Multivitamin With Minerals) 1 tablet PO DAILY@0800 [facility] Last Admin: 11/29/19 07:30 Dose: 1 tablet Documented by: Polyethylene Glycol (Miralax) 17 gm PO DAILY PRN PRN PRN Reason: Constipation Medical Necessity - Tobacco Use Smoking Status: Former smoker - she only smoked for a few years and she quit in the Tobacco Use: Non-smoker Assessment/Plan All Active Problems (Last Reviewed 11/19/19 @ 14:45 by Chelsy Loyola DO) DEANDRE (obstructive sleep apnea) (Acute) Morbid obesity (Acute) Depression with anxiety (Acute) Allergic rhinitis (Acute) Status post right foot surgery (Acute) Physical debility (Acute) Partial tear of right Achilles tendon (Acute) Hyperthyroidism (Resolved) Infection of left breast (Resolved) Right lower extremity postoperative endoscopic gastrocnemius recession, repair of Achilles tear with de and reattachment of achilles with bone anchors including resection of the calcaneus spur and Yolande deformity, resection of peroneal tenosynivitis on 11/15/2019 Walking difficulty and fall risk Obesity Sleep apnea Hypothyroidism Anxiety Right lower extremity pain Patient continues to do well. The postoperative dressing was changed today with gauze, abdominal pads, Kerlix. A well-padded posterior mold was also reapplied slightly plantarflexed position to protect her recent repair site. She was advised to keep the splint and dressing clean, dry, and intact. To ice and elevate for pain management. Her pain is significantly reduced and she is progressing well with her rehabilitation program. She is hopeful to return home next week. Continue with nonweightbearing status to right foot. Lovenox for DVT prophylaxis. We will see patient weekly while in the rehabilitation unit. To follow-up with Dr. Leija after discharge at the foot and ankle center. The tentative plan is for suture removal next week. She will be progressed to partial weightbearing possibly up to 25% at status post 1 month with an Achilles pneumatic boot with a wedge lifts in place; this will be fitted and dispensed at the foot and ankle center. Please do not hesitate to call if you have any questions. Yisel Leija, PREM, FACFAS [facility] [phone]
[2019-11-29 20:45] VITALS: BP 115/68; PULSE 63; RESP 18; TEMP 36.3; O2SAT 99
[2019-11-30] MEDS: Levothyroxine 100 MCG Tablet PO (05:45)
[2019-11-30] MEDS: Enoxaparin 40 MG/0.4 ML Syringe SC (05:45)
[2019-11-30] MEDS: HYDROcodone Bitartrate/Apap 5/325 Tablet PO ×2 (08:08→22:12)
[2019-11-30] MEDS: Citalopram 10 MG Tablet PO (08:08)
[2019-11-30] MEDS: Cyanocobalamin 500 MCG Tablet PO (08:08)
[2019-11-30] MEDS: Celecoxib 200 MG Capsule PO ×2 (08:08→22:09)
[2019-11-30] MEDS: buPROPion (XL) 150 MG TABLET.XL PO (08:08)
[2019-11-30] MEDS: Multivitamins,Ther W-Minerals Tablet 1 TABLET PO (08:08)
[2019-11-30] MEDS: Loratadine 10 MG Tablet PO (08:08)
--- NOTE | 2019-11-30 08:12 | NURSING ---
medicated for rt ankle pain 04/01.
[2019-11-30 08:58] VITALS: BP 114/68; PULSE 65; RESP 16; TEMP 36.4; O2SAT 97
--- NOTE | 2019-11-30 12:09 | PCM.PN.BLA ---
Progress Note This is a late entry for 11/29/19 Afebrile VSS pain is well controlled She was seen by Dr. Leija today and the dressing was taken down. No sign of infection and the wound is healing. No complaints today Alert, appropriate, NAD, pleasant Lung -CTA H - RRR no MM and no gallop abd - soft, NT, ND, no guarding with palpation, good bowel function no calf tenderness getting around very well with the knee walker and is getting better at bumping up steps Impressions 1. Debility due to recent R achilles tendon repair. Non-weight bearing on the RLE. Continue therapy. 2. Left shoulder overuse S with tendonitis - pain is much better. Continue current therapy. STROKE Vital Signs/Narrative: Vital Signs Temp Pulse Resp BP Pulse Ox 11/30/19 08:58 97.5 F L 65 16 114/68 97 Code Visit Inpatient E&M: 71532 Subs Hosp L1
[2019-11-30 19:27] VITALS: BP 141/71; PULSE 67; RESP 16; TEMP 36.8; O2SAT 97
[2019-12-01] MEDS: Enoxaparin 40 MG/0.4 ML Syringe SC (06:38)
[2019-12-01] MEDS: Levothyroxine 100 MCG Tablet PO (06:38)
[2019-12-01] MEDS: Multivitamins,Ther W-Minerals Tablet 1 TABLET PO (08:37)
[2019-12-01] MEDS: Loratadine 10 MG Tablet PO (08:38)
[2019-12-01] MEDS: Cyanocobalamin 500 MCG Tablet PO (08:38)
[2019-12-01] MEDS: Celecoxib 200 MG Capsule PO ×2 (08:38→21:36)
[2019-12-01] MEDS: Citalopram 10 MG Tablet PO (08:38)
[2019-12-01] MEDS: buPROPion (XL) 150 MG TABLET.XL PO (08:38)
[2019-12-01] MEDS: HYDROcodone Bitartrate/Apap 5/325 Tablet PO ×3 (08:39→21:36)
[2019-12-01 09:59] VITALS: BP 116/65; PULSE 64; RESP 17; TEMP 36.6; O2SAT 97
[2019-12-01 19:49] VITALS: BP 113/75; PULSE 67; RESP 16; TEMP 36.6; O2SAT 98
[2019-12-01 21:30] VITALS: PULSE 67; RESP 16
--- NOTE | 2019-12-02 03:41 | NURSING ---
Reviewed and agree with FOOD BAGGING MACHINE OPERATOR documentation and charting.
[2019-12-02] MEDS: Enoxaparin 40 MG/0.4 ML Syringe SC (05:33)
[2019-12-02] MEDS: Levothyroxine 100 MCG Tablet PO (05:34)
[2019-12-02] MEDS: HYDROcodone Bitartrate/Apap 5/325 Tablet PO ×3 (05:35→22:04)
[2019-12-02 07:48] VITALS: BP 117/65; PULSE 64; RESP 16; TEMP 36.4; O2SAT 96
[2019-12-02] MEDS: Celecoxib 200 MG Capsule PO ×2 (07:53→20:47)
[2019-12-02] MEDS: Loratadine 10 MG Tablet PO (07:53)
[2019-12-02] MEDS: Multivitamins,Ther W-Minerals Tablet 1 TABLET PO (07:53)
[2019-12-02] MEDS: Citalopram 10 MG Tablet PO (07:53)
[2019-12-02] MEDS: Cyanocobalamin 500 MCG Tablet PO (07:53)
[2019-12-02] MEDS: buPROPion (XL) 150 MG TABLET.XL PO (07:54)
--- NOTE | 2019-12-02 14:30 | PCM.PN.BLA ---
Progress Note Afebrile Blood pressure is well controlled. Maintaining an appropriate oxygen saturation on room air. Denies nausea/vomiting/abdominal pain/shortness of breath/chest pain.She is feeling down in the dumps today. Salvatore is tearful when I am talking to her. She gets anxious about having to get on the floor and try and get up with 1 leg. This is something she has never had to do at home. She is a little anxious about going home. She has a long hx of depression and she is on Wellbutrin and Citalopram. Alert, oriented X 3, had tears in her eyes and they are red rimmed. Lungs - CTA HRRR abd - soft, NT, ND intact sensation to the toes on the R foot Impressions 1. acute exacerbation of chronic depression - increase the Citalopram to 20 mg daily until she is out of a cast/boot and is getting around well continue Therapy. I am going to DC the Vicodin and start Oxy IR and Tylenol. Her pain is better and she is not always wanting to take the Vicodin but, she needs something for pain. Code Visit Inpatient E&M: 91133 Subs Hosp L1
[2019-12-02 19:47] VITALS: BP 124/69; PULSE 64; RESP 18; TEMP 36.7; O2SAT 98
[2019-12-02 20:50] VITALS: PULSE 64; RESP 18
--- NOTE | 2019-12-03 03:03 | NURSING ---
Reviewed and agree with MICROCOMPUTER SUPPORT SPECIALIST documentation and charting.
[2019-12-03] MEDS: Levothyroxine 100 MCG Tablet PO (05:25)
[2019-12-03] MEDS: Enoxaparin 40 MG/0.4 ML Syringe SC (05:25)
[2019-12-03 07:00] VITALS: BP 100/65; PULSE 64; RESP 18; TEMP 36.4; O2SAT 97
[2019-12-03] MEDS: buPROPion (XL) 150 MG TABLET.XL PO (07:48)
[2019-12-03] MEDS: Multivitamins,Ther W-Minerals Tablet 1 TABLET PO (07:48)
[2019-12-03] MEDS: Loratadine 10 MG Tablet PO (07:48)
[2019-12-03] MEDS: Cyanocobalamin 500 MCG Tablet PO (07:48)
[2019-12-03] MEDS: Celecoxib 200 MG Capsule PO ×2 (07:49→19:37)
[2019-12-03] MEDS: Citalopram 20 MG Tablet PO (07:49)
[2019-12-03] MEDS: HYDROcodone Bitartrate/Apap 5/325 Tablet PO ×3 (07:49→20:59)
[2019-12-03 19:30] VITALS: BP 113/60; PULSE 67; RESP 16; TEMP 36.5; O2SAT 96
--- NOTE | 2019-12-04 04:17 | NURSING ---
Reviewed and agree with [employer] documentation & charting.
[2019-12-04] MEDS: Levothyroxine 100 MCG Tablet PO (05:42)
[2019-12-04] MEDS: Enoxaparin 40 MG/0.4 ML Syringe SC (05:42)
[2019-12-04 07:00] VITALS: BP 122/65; PULSE 64; RESP 18; TEMP 36.7; O2SAT 98
[2019-12-04] MEDS: Celecoxib 200 MG Capsule PO ×2 (07:45→20:14)
[2019-12-04] MEDS: Citalopram 20 MG Tablet PO (07:45)
[2019-12-04] MEDS: Cyanocobalamin 500 MCG Tablet PO (07:45)
[2019-12-04] MEDS: HYDROcodone Bitartrate/Apap 5/325 Tablet PO ×2 (07:45→22:06)
[2019-12-04] MEDS: buPROPion (XL) 150 MG TABLET.XL PO (07:45)
[2019-12-04] MEDS: Loratadine 10 MG Tablet PO (07:45)
[2019-12-04] MEDS: Multivitamins,Ther W-Minerals Tablet 1 TABLET PO (07:45)
[2019-12-04 20:17] VITALS: BP 140/71; PULSE 70; RESP 18; TEMP 36.8; O2SAT 99
--- NOTE | 2019-12-05 00:42 | NURSING ---
REVIEWED AND AGREE WITH FUNCTIONAL ASSESSMENT AND HANDOFF CHARTING.
[2019-12-05] MEDS: Levothyroxine 100 MCG Tablet PO (05:49)
[2019-12-05] MEDS: Enoxaparin 40 MG/0.4 ML Syringe SC (05:49)
[2019-12-05] MEDS: Cyanocobalamin 500 MCG Tablet PO (08:08)
[2019-12-05] MEDS: Citalopram 20 MG Tablet PO (08:08)
[2019-12-05] MEDS: buPROPion (XL) 150 MG TABLET.XL PO (08:08)
[2019-12-05] MEDS: Celecoxib 200 MG Capsule PO ×2 (08:09→20:08)
[2019-12-05] MEDS: Loratadine 10 MG Tablet PO (08:09)
[2019-12-05] MEDS: Multivitamins,Ther W-Minerals Tablet 1 TABLET PO (08:11)
[2019-12-05 08:12] VITALS: BP 125/80; PULSE 58; RESP 20; TEMP 36.5; O2SAT 97
[2019-12-05] MEDS: Capsaicin 0.025% 1 APPLIC Tube TOPICAL (09:35)
--- NOTE | 2019-12-05 10:15 | CASEMGMT ---
Addendum entered by Franchesca Arora 12/05/19 16:21: [facility] is unable to accept the pt. Contacted multiple other [facility] agencies. [facility] can accept. Pt agreeable. Original Note: Social Work Met with pt about C pt requested several [facility] companies, are not in network with pts insurance. [facility] in network, referral made. DC plan: DC home 12/07 with mother and [facility]-PT/OT, [employer]-BSC and FWW Bailey Meyers, social work international guest coordinator Franchesca Arora, AUTHOR AGENT TRAFFIC LINE PAINTER
--- NOTE | 2019-12-05 10:30 | CASEMGMT ---
Social Work Reviewed and agreed with social work international exchange coordinator documentation. Franchesca Arora, CANE FURNITURE MAKER RN INTERVENTIONAL
[2019-12-05] MEDS: HYDROcodone Bitartrate/Apap 5/325 Tablet PO ×2 (14:59→21:55)
[2019-12-05 20:21] VITALS: BP 127/73; PULSE 73; RESP 14; TEMP 36.7; O2SAT 97
[2019-12-06] MEDS: Enoxaparin 40 MG/0.4 ML Syringe SC (06:30)
[2019-12-06] MEDS: Levothyroxine 100 MCG Tablet PO (06:30)
[2019-12-06] MEDS: Citalopram 20 MG Tablet PO (07:53)
[2019-12-06] MEDS: Cyanocobalamin 500 MCG Tablet PO (07:53)
[2019-12-06] MEDS: buPROPion (XL) 150 MG TABLET.XL PO (07:53)
[2019-12-06] MEDS: Celecoxib 200 MG Capsule PO ×2 (07:53→21:59)
[2019-12-06] MEDS: Multivitamins,Ther W-Minerals Tablet 1 TABLET PO (07:53)
[2019-12-06] MEDS: Loratadine 10 MG Tablet PO (07:53)
[2019-12-06] MEDS: Capsaicin 0.025% 1 APPLIC Tube TOPICAL (08:06)
[2019-12-06 08:14] VITALS: BP 126/66; PULSE 64; RESP 18; TEMP 36.6; O2SAT 98
--- NOTE | 2019-12-06 13:44 | PN_ITS ---
Patient Problems: Active and Suspected Problems (Last Reviewed 11/19/19 @ 14:45 by Chelsy Loyola DO) DEANDRE (obstructive sleep apnea) (Acute) Morbid obesity (Acute) Depression with anxiety (Acute) Allergic rhinitis (Acute) Status post right foot surgery (Acute) Endoscopic gastrocnemius recession, repair of Achilles tendon tear with de and reattachment of Achilles with bone anchors including resection of a calcaneal spur, resection of peroneal Tenosynovitis by Dr. Leija on 11/15/19 Physical debility (Acute) Subjective: This 54-year-old female was seen postoperative right lower extremity. She plans on discharge tomorrow. She has been progressing well with her therapy program. She denies shortness of breath, chest pain, calf pain, fever, chill, nausea, or surgical site pain. - Physical Exam Vitals/I&O's: Vital Signs Temp Pulse Resp BP Pulse Ox 97.9 F 64 18 126/66 H 98 12/06/19 08:14 12/06/19 08:14 12/06/19 08:14 12/06/19 08:14 12/06/19 08:14 Oxygen Delivery Method Room Air Weight: 126.6 kg Body Mass Index (BMI) 43.7 Intake and Output for Last 24 Hours 12/04/19 12/05/19 12/06/19 23:59 23:59 23:59 Intake Total 260 / 260 1120 / 1120 840 / 840 Output Total 400 / 400 Balance 260 / 260 720 / 720 840 / 840 General: Alert, Oriented x3, Cooperative Extremities: No cyanosis, Capillary Refill Less than 3 Seconds - All digits right foot and also adjacent to each incision site, No Calf Tenderness - N egative Liam and Schroeder sign right lower extremity, Edema - Resolved right lower extremity, Peripheral Pulses Normal Skin: Incision - Well aligned and coapted and no gapping noted upon suture removal. There are no signs of infection. Musculoskeletal: No Tenderness to Palpation of Joints or Extremities, Muscle Wasting, - - Rectus right lower extremity Neurological: Sensory exam intact to light touch and pain Psych/Mental Status: Normal Affect, Appropriate Current Medications Acetaminophen (Tylenol) 650 mg PO Q8H PRN PRN PRN Reason: Pain or Fever Hydrocodone Bitart/Acetaminophen ([place] 5mg-325mg) 2 tablet PO Q6H PRN PRN PRN Reason: Pain Score 4-10/10 Last Admin: 12/05/19 21:55 Dose: 2 tablet Documented by: Bisacodyl (Dulcolax) 10 mg RECTAL .PRN X 1 PRN PRN Reason: Constipation Bupropion HCl (Wellbutrin Xl) 150 mg PO DAILY [facility] Last Admin: 12/06/19 07:53 Dose: 150 mg Documented by: Capsaicin (Zostrix) 1 applic TOPICAL TID PRN PRN; Protocol PRN Reason: Pain Score 1-10/10 Last Admin: 12/06/19 08:06 Dose: 1 applicatio Documented by: Celecoxib (Celebrex) 200 mg PO BID [facility] Last Admin: 12/06/19 07:53 Dose: 200 mg Documented by: Cholecalciferol (Vitamin D) 10,000 unit PO Han [facility] Last Admin: 12/01/19 08:38 Dose: 10,000 unit Documented by: Citalopram Hydrobromide (Celexa) 20 mg PO DAILY [facility] Last Admin: 12/06/19 07:53 Dose: 20 mg Documented by: Cyanocobalamin (Vitamin B12) 500 mcg PO DAILY [facility] Last Admin: 12/06/19 07:53 Dose: 500 mcg Documented by: Enoxaparin Sodium (Lovenox) 40 mg SC DAILY@0600 [facility] Last Admin: 12/06/19 06:30 Dose: 40 mg Documented by: Levothyroxine Sodium (Synthroid) 100 mcg PO DAILY@0600 [facility] Last Admin: 12/06/19 06:30 Dose: 100 mcg Documented by: Loratadine (Claritin) 10 mg PO DAILY [facility] Last Admin: 12/06/19 07:53 Dose: 10 mg Documented by: Magnesium Hydroxide (Milk Of Magnesia) 30 ml PO .PRN X 1 PRN PRN Reason: Constipation Melatonin (Melatonin) 3 mg PO QHS PRN PRN PRN Reason: INSOMNIA Multivitamins/Minerals (Multivitamin With Minerals) 1 tablet PO DAILY@0800 [facility] Last Admin: 12/06/19 07:53 Dose: 1 tablet Documented by: Polyethylene Glycol (Miralax) 17 gm PO DAILY PRN PRN PRN Reason: Constipation Medical Necessity - Tobacco Use Smoking Status: Former smoker - she only smoked for a few years and she quit in the 1990's Tobacco Use: Non-smoker Assessment/Plan All Active Problems (Last Reviewed 11/19/19 @ 14:45 by Chelsy Loyola DO) DEANDRE (obstructive sleep apnea) (Acute) Morbid obesity (Acute) Depression with anxiety (Acute) Allergic rhinitis (Acute) Status post right foot surgery (Acute) Physical debility (Acute) Partial tear of right Achilles tendon (Acute) Hyperthyroidism (Resolved) Infection of left breast (Resolved) Right lower extremity postoperative endoscopic gastrocnemius recession, repair of Achilles tear with de and reattachment of achilles with bone anchors including resection of the calcaneus spur and Yolande deformity, resection of peroneal tenosynivitis on 11/15/2019 Walking difficulty and fall risk Obesity Sleep apnea Hypothyroidism Anxiety Right lower extremity pain resolving Patient continues to do well and is planning to be discharged tomorrow. Her sutures were removed today and her splint was reapplied in a well-padded manner. She will keep this clean and intact until follow-up at the office in about 1 week. I plan to have her progress to partial weightbearing status with a wedge walking boot. She is progressed off of narcotic medication and plans to continue with Tylenol only at home. Continue with nonweightbearing status to right foot. Lovenox for DVT prophylaxis. Medical management per hospitalist is greatly appreciated. Please do not hesitate to call if you have any questions. Yisel Leija DPM, FACFAS [facility] [phone]
[2019-12-06 22:00] VITALS: BP 140/83; PULSE 69; RESP 16; TEMP 36.6; O2SAT 98
[2019-12-06] MEDS: HYDROcodone Bitartrate/Apap 5/325 Tablet PO (22:02)
[2019-12-07] MEDS: Levothyroxine 100 MCG Tablet PO (06:24)
[2019-12-07] MEDS: Enoxaparin 40 MG/0.4 ML Syringe SC (06:24)
[2019-12-07 07:42] VITALS: BP 131/70; PULSE 66; RESP 16; TEMP 36.7; O2SAT 99
[2019-12-07] MEDS: Multivitamins,Ther W-Minerals Tablet 1 TABLET PO (07:43)
[2019-12-07] MEDS: Celecoxib 200 MG Capsule PO (07:43)
[2019-12-07] MEDS: Citalopram 20 MG Tablet PO (07:43)
[2019-12-07] MEDS: Loratadine 10 MG Tablet PO (07:44)
[2019-12-07] MEDS: Cyanocobalamin 500 MCG Tablet PO (07:44)
[2019-12-07] MEDS: buPROPion (XL) 150 MG TABLET.XL PO (07:44)
--- NOTE | 2019-12-07 12:37 | DCINST_ITS ---
- Discharge Diagnoses Current Active Problems: Current Active and Chronic Problems (Last Reviewed 11/19/19 @ 14:45 by Chelsy Loyola DO) DEANDRE (obstructive sleep apnea) (Acute) Morbid obesity (Acute) Depression with anxiety (Acute) Allergic rhinitis (Acute) Status post right foot surgery (Acute) Endoscopic gastrocnemius recession, repair of Achilles tendon tear with de and reattachment of Achilles with bone anchors including resection of a calcaneal spur, resection of peroneal Tenosynovitis by Dr. Leija on 11/15/19 Physical debility (Acute) You will use the following diet at home:: No restrictions Your food should be the consistency of: Regular Your liquids should be the consistency of: Regular/Thin Discharge Activity: May Not Drive, - - use knee walker Weight Bearing Status: No weight bearing - on the R leg Keep extremity elevated above heart level: Right Leg Call your doctor if you observe: Fever of 101 or Higher, Inability to urinate, Inability to have a bowel movement, Shortness of breath, Dizziness, Fainting spells, Chest pain, Uncontrolled pain Additional Instructions: 1. It was a pleasure to meet you Nilam. You have really done well in therapy and have been a real trooper, always with a good attitude. Good luck with the rest of your recovery. 2. You have been more depressed at times and recovery is a long road and hard work. It can be frustrating at times. I increased the Citalopram to 20mg daily and I have given you a prescription for the increased dose. 3. Ice helps with inflammation and pain. Continue to ice the R ankle if you are having pain. The Celebrex is a pain pill but, it is also an anti-inflammatory. It works best to decrease inflammation if you take it twice a day every day. I have written you a prescription for a month's worth.....depending on hohw you are progressing you may need to have this refilled by your PCP or Dr. Leija for another month. Pending Tests on Discharge: none Allergies/Adverse Reactions: Allergies No Known Allergies Allergy (Verified 11/15/19 09:46) Medications to take at Discharge Cholecalciferol (Vitamin D3) [Vitamin D3] 10,000 unit PO QWEEK 12/22/16 Multivit-Min/Iron/Folic/Lutein [Centrum Silver Women Tablet] 1 ea PO DAILY 12/22/16 buPROPion XL [Wellbutrin Xl] 150 mg PO DAILY 12/22/16 Cyanocobalamin (Vitamin B-12) [Vitamin B-12] 500 mcg PO DAILY 08/04/19 Levothyroxine Sodium 100 mcg PO DAILY 08/04/19 Docusate Sodium [Colace] 100 mg PO BID PRN PRN cap 11/19/19 Loratadine [Claritin] 10 mg PO DAILY 11/19/19 Melatonin 3 mg PO QHS PRN PRN tab 11/19/19 Acetaminophen [Tylenol Tablet] 650 mg PO Q8H PRN PRN tablet 12/07/19 Celecoxib [Celebrex] 200 mg PO BID #60 cap 12/07/19 Citalopram [Celexa] 20 mg PO DAILY #30 tab 12/07/19 Hydrocodone Bitart/Apap 5-325 [[place] 5/325] 2 tab PO Q6H PRN PRN 7 Days #42 tab 12/07/19 The following prescriptions were given: Celecoxib [Celebrex] 200 mg PO BID #60 cap Transmission Status: Pending to [facility] Citalopram [Celexa] 20 mg PO DAILY #30 tab Transmission Status: Pending to [facility] Hydrocodone Bitart/Apap 5-325 [[place] 5/325] 2 tab PO Q6H PRN PRN 7 Days #42 tab PRN Reason: Pain Score 4-5/10 Transmission Status: Received by [id number] Primary Care Physician: Lisseth Momin DO [Primary Care Provider] - Please follow up with your Primary Care Physician in: 1 week Test Results: Test results from this visit will be discussed in further detail at your follow- up appointment, if applicable. Please Follow Up With: Dr Leija
--- NOTE | 2019-12-07 12:51 | DS.PCM_ITS ---
Discharge Date and Diagnosis Date of Admission: 11/19/19 Date of Discharge: 12/07/19 - Primary Discharge Diagnosis Active and Suspected Problems (Last Reviewed 11/19/19 @ 14:45 by Chelsy Loyola DO) Status post right foot surgery (Acute) Endoscopic gastrocnemius recession, repair of Achilles tendon tear with de and reattachment of Achilles with bone anchors including resection of a calcaneal spur, resection of peroneal Tenosynovitis by Dr. Leija on 10/24 02/09 Physical debility (Acute) Biceps tendonitis on left (Acute) Left shoulder strain (Acute) - Secondary Discharge Diagnosis Chronic Problems (Last Reviewed 11/19/19 @ 14:45 by Chelsy Loyola DO) DEANDRE (obstructive sleep apnea) (Chronic) Morbid obesity (Chronic) Depression with anxiety (Chronic) Allergic rhinitis (Chronic) Calcaneal spur, right foot (Chronic) Peroneal tenosynovitis (Chronic) Gastrocnemius equinus of right lower extremity (Chronic) Hospital Course and Treatment Imaging Results: Laboratory Tests 11/20/19 11/20/19 Range/Units 05:24 05:24 WBC 7.5 (4.4-11.0) K/mm3 RBC 4.69 (4.2-5.4) M/mm3 Hgb 12.2 (12.0-15.0) g/dL Hct 39.1 (37-47) % MCV 83.4 (81-99) fL MCH 26.0 L (27.0-32.0) pg MCHC 31.2 L (32-36) g/dL RDW Std Deviation 44.9 H (35.1-43.9) fl RDW Coeff of Genie 14.8 H (11.6-14.6) % Plt Count 320 (150-450) K/mm3 MPV 9.3 (6.2-12.0) fl Immature Gran % (Auto) 0.900 (0.0-0.9) % Neut % (Auto) 65.1 (47-70) % Lymph % (Auto) 19.4 (19-41) % [place] % (Auto) 7.7 (0-10) % Eos % (Auto) 6.4 H (0-5) % Baso % (Auto) 0.5 (0-1) % Absolute Neuts (auto) 4.9 (2.0-7.7) X10^3/uL Absolute Lymphs (auto) 1.45 (0.83-4.51) X10^3/uL Nucleated RBC % 0 (0-5) % Sodium 139 (136-145) mmol/L Potassium 3.9 (3.5-5.1) mmol/L Chloride 106 (98-107) mmol/L Carbon Dioxide 29.0 (21.0-32.0) mmol/L Anion Gap 4 L (5-15) BUN 20 H (7-18) mg/dL Creatinine 0.68 (0.55-1.02) mg/dL Estim Creat Clear Calc 88.54 ml/min Est GFR (MDRD) Af Amer 116 (>60) mL/min Est GFR (MDRD) Non-Af 96 (>60) mL/min BUN/Creatinine Ratio 29.4 H (10-20) RATIO Glucose 89 (74-106) mg/dL Calcium 9.2 (8.5-10.1) mg/dL Magnesium 2.1 (1.6-2.6) mg/dL Dr. Leija Operations: - - Right ankle surgery by Dr. Leija on 11/15/2019 to repair a torn Achilles tendon Procedures: None Summary of Care Provided: The patient is a 54 year old F with a past medical history of depression/anxiety, obesity, obstructive sleep apnea and hypothyroidism who underwent surgical repair of a right partial Achilles tendon tear by Dr. Leija on 11/15/2019. She was admitted to the inpatient rehab unit on 11/19/2019 for physical therapy and Occupational Therapy totalling greater than or equal to 3 hours a day to restore her at or near her prior level of independence. Prior to the surgery she was independent with mobility, ADLs and driving. She was nonweightbearing on the right lower extremity. Lab done on 11/20/2019 was unremarkable with the exception of an increased BUN/creatinine ratio and she was encouraged to increase her fluid intake. She denied dizziness or lightheadedness. Her stay in rehab was unremarkable with no complications other than acute exacerbation of depression. Citalopram dose was increased and the crying episodes seemed to decrease and her outlook for recovery improved. She was seen and examined by Dr. Leija every Monday. The wound was healing appropriately with no evidence of infection. Pain was well controlled and narcotic use decreased gradually throughout her stay. She was discharged home on 11/10/2019 on medications previously listed. She was given a RX for #42 [place] for pain control. She will follow-up with Dr. Leija as instructed and will also follow up with Dr. Momin in 1 week. [facility] was arranged by the SW and she will remain non-weight bearing on the RLE. PHYSICAL EXAM: GENERAL: alert, oriented X 3, Cooperative, NAD ORAL: moist mucosa, no mucosal lesions NECK: No JVD, supple, trachea midline LUNGS: CTA, symmetric chest expansion, mildly decreased in the bases, likely due to body habitus HEART: RRR, Normal S1 and S2, no rub, no gallop ABDOMEN: soft, NT, ND, BS present, no guarding with palpation EXTREMITIES: no edema of the left leg (the right is in a cast and can not be examined), the toes on the right foot are warm with no cyanosis and with intact sensation, no calf tenderness SKIN: No rashes, no breakdown NEUROLOGIC: no focal neurologic deficits PSYCH: appropriate, normal affect, pleasant, more upbeat and looking forward to getting home This note was generated with [employer] dictation software. It may contain incorrect words, spelling, and punctuation that were not noted in checking the note before signing. - Physical Exam Vitals/I&O's: Vital Signs Temp Pulse Resp BP Pulse Ox 98.1 F 66 16 131/70 H 99 12/07/19 07:42 12/07/19 07:42 12/07/19 07:42 12/07/19 07:42 12/07/19 07:42 Oxygen Delivery Method Room Air Weight: 279 lb 1.683 oz Body Mass Index (BMI) 43.7 Intake and Output for Last 24 Hours 12/05/19 12/06/19 12/07/19 23:59 23:59 23:59 Intake Total 1120 / 1120 1320 / 1320 360 / 360 Output Total 400 / 400 300 / 300 400 / 400 Balance 720 / 720 1020 / 1020 -40 / -40 Current Medications Acetaminophen (Tylenol) 650 mg PO Q8H PRN PRN PRN Reason: Pain or Fever Hydrocodone Bitart/Acetaminophen ([place] 5mg-325mg) 2 tablet PO Q6H PRN PRN PRN Reason: Pain Score 4-10/10 Last Admin: 12/06/19 22:02 Dose: 2 tablet Documented by: Bisacodyl (Dulcolax) 10 mg RECTAL .PRN X 1 PRN PRN Reason: Constipation Bupropion HCl (Wellbutrin Xl) 150 mg PO DAILY [facility] Last Admin: 12/07/19 07:44 Dose: 150 mg Documented by: Capsaicin (Zostrix) 1 applic TOPICAL TID PRN PRN; Protocol PRN Reason: Pain Score 1-10/10 Last Admin: 12/06/19 08:06 Dose: 1 applicatio Documented by: Celecoxib (Celebrex) 200 mg PO BID [facility] Last Admin: 12/07/19 07:43 Dose: 200 mg Documented by: Cholecalciferol (Vitamin D) 10,000 unit PO Han [facility] Last Admin: 12/01/19 08:38 Dose: 10,000 unit Documented by: Citalopram Hydrobromide (Celexa) 20 mg PO DAILY [facility] Last Admin: 12/07/19 07:43 Dose: 20 mg Documented by: Cyanocobalamin (Vitamin B12) 500 mcg PO DAILY [facility] Last Admin: 12/07/19 07:44 Dose: 500 mcg Documented by: Enoxaparin Sodium (Lovenox) 40 mg SC DAILY@0600 [facility] Last Admin: 12/07/19 06:24 Dose: 40 mg Documented by: Levothyroxine Sodium (Synthroid) 100 mcg PO DAILY@0600 [facility] Last Admin: 12/07/19 06:24 Dose: 100 mcg Documented by: Loratadine (Claritin) 10 mg PO DAILY [facility] Last Admin: 12/07/19 07:44 Dose: 10 mg Documented by: Magnesium Hydroxide (Milk Of Magnesia) 30 ml PO .PRN X 1 PRN PRN Reason: Constipation Melatonin (Melatonin) 3 mg PO QHS PRN PRN PRN Reason: INSOMNIA Multivitamins/Minerals (Multivitamin With Minerals) 1 tablet PO DAILY@0800 [facility] Last Admin: 12/07/19 07:43 Dose: 1 tablet Documented by: Polyethylene Glycol (Miralax) 17 gm PO DAILY PRN PRN PRN Reason: Constipation Discharge Activity: May Not Drive, - - use knee walker Weight Bearing Status: No weight bearing - on the R leg Keep extremity elevated above heart level: Right Leg Call your doctor if you observe: Fever of 101 or Higher, Inability to urinate, Inability to have a bowel movement, Shortness of breath, Dizziness, Fainting spells, Chest pain, Uncontrolled pain Home Medications: Medications to take at Discharge Cholecalciferol (Vitamin D3) [Vitamin D3] 10,000 unit PO QWEEK 12/22/16 Multivit-Min/Iron/Folic/Lutein [Centrum Silver Women Tablet] 1 ea PO DAILY 12/22/16 buPROPion XL [Wellbutrin Xl] 150 mg PO DAILY 12/22/16 Cyanocobalamin (Vitamin B-12) [Vitamin B-12] 500 mcg PO DAILY 08/04/19 Levothyroxine Sodium 100 mcg PO DAILY 08/04/19 Docusate Sodium [Colace] 100 mg PO BID PRN PRN cap 11/19/19 Loratadine [Claritin] 10 mg PO DAILY 11/19/19 Melatonin 3 mg PO QHS PRN PRN tab 11/19/19 Acetaminophen [Tylenol Tablet] 650 mg PO Q8H PRN PRN tab 12/07/19 Celecoxib [Celebrex] 200 mg PO BID #60 cap 12/07/19 Citalopram [Celexa] 20 mg PO DAILY #30 tab 12/07/19 Hydrocodone Bitart/Apap 5-325 [[place] 5/325] 2 tab PO Q6H PRN PRN 7 Days #42 tab 12/07/19 Following Prescrptions Were Given to Patient: Celecoxib [Celebrex] 200 mg PO BID #60 cap Transmission Status: Received by [facility] Citalopram [Celexa] 20 mg PO DAILY #30 tab Transmission Status: Received by [facility] Hydrocodone Bitart/Apap 5-325 [[place] 5/325] 2 tab PO Q6H PRN PRN 7 Days #42 tab PRN Reason: Pain Score 4-5/10 Transmission Status: Received by [id number] Primary Care Physician: Lisseth Momin DO [Primary Care Provider] - Please follow up with your Primary Care Physician in: 1 week Please Follow Up With: Dr Leija Disposition: Home with Home Health Minutes spent on discharge:: 35 Medical Necessity - Tobacco Use Smoking Status: Former smoker - she only smoked for a few years and she quit in the 1990's Tobacco Use: Non-smoker Meaningful Use Info Meaningful Use Diagnoses (Choose all that apply): None applicable Code Visit Inpatient E&M: 04471 Disch Hosp
[2019-12-07] MEDS: HYDROcodone Bitartrate/Apap 5/325 Tablet PO (13:38)
[2019-12-07 13:50] VITALS: BP 128/70; PULSE 70; RESP 18; TEMP 36.6; O2SAT 97
--- NOTE | 2019-12-07 14:04 | NURSING ---
discharged home with family. discharged instructions, medications and appointments reviewed with pt. denies questions or concerns
== END 2019-12-07 14:00 | disposition home health service (06) | DRG 862 ==
PROVIDERS: Admitting Provider Internal Medicine; PCP Family Medicine; Visit Provider Internal Medicine
DX: Z47.89 Encounter for other orthopedic aftercare (principal); S86.011D Strain of right Achilles tendon, subsequent encounter; G47.33 Obstructive sleep apnea (adult) (pediatric); F41.8 Other specified anxiety disorders; E66.01 Morbid (severe) obesity due to excess calories; E03.9 Hypothyroidism, unspecified; Z68.41 Body mass index [BMI] 40.0-44.9, adult; M99.01 Segmental and somatic dysfunction of cervical region; M99.03 Segmental and somatic dysfunction of lumbar region; M99.02 Segmental and somatic dysfunction of thoracic region; J30.9 Allergic rhinitis, unspecified; X58.XXXD Exposure to other specified factors, subsequent encounter; Z87.891 Personal history of nicotine dependence; Z71.3 Dietary counseling and surveillance
CPT/HCPCS: 36415; 80048; 83735; 85025; 97110; 97116; 97162; 97166; 97530; 97535

== ENCOUNTER 2020-02-11 13:30 | Outpatient (RCR) | payer MEDICAID, SELFPAY ==
--- NOTE | 2020-01-13 16:14 | HP.PTEVAL_ITS ---
Patient's Visit Information JOHN PÉREZ is a 54 year old F referred to Physical Therapy by Yisel Leija DPM with a diagnosis of R achilles repair with calcaneal resection +reattchment, peroneal repair. Date of Evaluation: 01/13/20 Physical Therapist: Larry Lama DPT - Visit Plan Frequency: 2-3x /Week Duration: 6-8 weeks Plan: Start with ROM progression, initiate open chain strengthening. Progress walking with in CAM boot to no lift over the next week, progressing to no AD then wean to shoe. Goal of progressing to no AD with shoe as tolerated. Use symptoms as guide. Add in desensitization to lateral aspect of ankle/foot. Add in gait/progression including stairs as tolerted. - Subjective Subjective: Pt. is here today for her initial evaluation with diagnosis of R achilles repair with calcaneal resection and reattchment, peroneal tendon tear repair. DOS: 11/15/19. Pt. arrives today with FWW and CAM boot. Pt. was on rehab/TCU for 2-3 weeks and then was doing HH for mobility. Pt. reports no doing much for her ankle, but has started doing ROM exercises on her own. Pt. minimal pain now, but if she walks too much she feels it. Pt. reports mild reduction in numbness at later foot. Pt. reports no loss of function/weakness. Pt. has taken a few steps withiout her walker without issues. 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 Pt. is hopeful to reduce symptoms in order to get back to all recreational and work activities without limitations. - Pain R foot Pain Intensity (Out of 10): 1 Pain Intensity Range: 0, 3 - Objective POSTURE: Pt. has decent posture in stance, slight L lateral wt. shifting. Pt. has trouble getting to neutral DF/PF on R side without boot. PALPATION: Pt. has tenderness at lateral mallelus and along peroneal tendon. Pt. has some tenderness along achilles tendon and calcaneus. Pt. has normal healing incisions, no signs of infection. Slight, non pitting edema at achilles and lateral ankle/foot complex. NEURO: Normal DTR, normal sensation, except slight reduction in sensation to R lateral foot to light touch. ROM: R ankle- AROM- DF2deg, PF 30deg, INV 8deg, EVR 4deg. PROM- DF 8deg, PF 38deg, INV 10deg, EVR 8deg. Normal knee ROM bilat. MMT: Pt. has descent strength throughout her BLEs, except R ankle- DF 4/5 PF 4/5, EVR 4/5, INV 4/5. toe extension 5/5, toe flexion 5/5, great toe flexion 5/5, great toe extension 5/5. GAIT: Pt. has good WBing tolerance to walking with FWW, minimal use of UEs. Pt. is negotiating steps with step to pattern wtih 1 crutch and 1 HR with safe pattern. - Goals Goal 1:: LTG: Pt. to be I with HEP. Goal Time Frame: 4-6 Weeks Goal 2:: STG: Pt. to have increaed ankle AROM to 25% in all directions without increase in symptoms. Goal Time Frame: 2-4 Weeks Goal 3:: LTG: Pt. to have full ROM of R ankle without increase in symptoms. Goal Time Frame: 4-6 Weeks Goal 4:: STG: Pt. to wean to no foam lift in CAM boot with walking without increase in symptoms. Goal Time Frame: 2-4 Weeks Goal 5:: LTG: Pt. to walk with full WBing in regular shoe without increase in symptoms. Goal Time Frame: 4-6 Weeks Goal 6:: LTG: Pt. to have increase R ankle strength by 1/2 grade throughout without increase in symptoms. Goal Time Frame: 4-6 Weeks - Rehabilitation Potential Physical Therapy Diagnosis: Pt. has signs and symptoms consistent with R achilles repair with calcaneal resection and reattchment, peroneal tendon tear repair, DOS 11/15/19. Pt. is progressing well, she is a little stiff, but to be expected and desired at this point intime. Pt. has marked weakness in her R ankle/foot as well. Pt. would benefit from PT to address above limitations as well as progress walking routine/tolerance and functional mobility. Rehabilitation Potential: Excellent - Anticipated Interventions Patient/Client Instruction: Educate patient on: Condition, Plan of Care, Risk Factors, Benefits of Fitness Program For the Purpose of:: To improve decision making, To facilitate caregiver knowledge, To improve self management, To prevent re-injury, To improve ability to perform tasks related to life management Therapeutic Exercise to Include: Strength training, Power training, Body mechanics, Postural training, Flexibilty training, Gait and locomotor training, Passive ROM, Active ROM For the Purpose of:: To decrease pain, To increase ROM, To improve nutrient delivery to tissue, To increase oxygenation perfusion, To improve muscle performance and motor function, To improve gait and locomotor functions, To improve health of tissue, To increase flexibility/ROM, To improve endurance, To improve balance, To improve safety Manual Therapy Techniques to Include: Passive ROM, Soft tissue mobilization For the Purpose of:: To decrease pain, To decrease swelling/inflammation, To increase ROM IF ES: Yes Cryotherapy (ice pack, ice massage): Yes For the Purpose of:: To decrease pain, To decrease swelling/inflammation, To increase ROM, To improve muscle performance and motor function Thank you for the opportunity to evaluate your patient. For Medicare and Medicare HMO plans, please review the plan of care and approve it. It will need to be FAXED BACK to us at [phone] for Medicare purposes. For Medicare only, by signing this I certify the plan of care. Please let me know if there are questions or concerns regarding this plan of care. Physician Signature: Date:
== END 2020-02-11 19:00 | disposition home or self-care (01) ==
LOC: PT 13:30
PROVIDERS: PCP Family Medicine; Referring Provider Podiatrist; Visit Provider Podiatrist
DX: Z98.890 Other specified postprocedural states (principal)
CPT/HCPCS: 97016; 97110; 97140; 97161

== ENCOUNTER → 2020-07-08 | Outpatient (CLI) | payer MEDICAID, SELFPAY ==
[2020-07-08 18:29] LABS: Free T3 2.9 pg/mL (2.18-3.98); T4 Free Direct 1.47 ng/dL (0.76-1.46); Thyroid Stim Hormone (TSH) 0.51 uIU/mL (0.358-3.74)
== END | disposition home or self-care (01) ==
LOC: MTLAB 15:29
PROVIDERS: PCP Family Medicine; Referring Provider Family Medicine; Visit Provider Family Medicine
DX: E03.9 Hypothyroidism, unspecified (principal)
CPT/HCPCS: 36415; 84439; 84443; 84481

== ENCOUNTER → 2020-08-25 15:56 | Outpatient (CLI) | payer MEDICAID, SELFPAY ==
--- NOTE | 2020-08-25 15:58 | BI_ITS ---
MAMMOGRAPHY - BILATERAL SCREENING REASON FOR EXAM: Female, 55 years old. Routine annual screening examination. PERTINENT HISTORY: Aunt with breast cancer. TECHNIQUE: Digital bilateral breast satinder (3D mammographic acquisition) in the CC and MLO projections. 2-D mediolateral oblique (MLO) and craniocaudad (CC) views of both breasts were obtained. CAD: Full Field Digital Mammography with Computer Added Detection was performed. COMPARISON: Comparison is made with prior examination dated 07/23/2019 and 07/04/2018. FINDINGS: Breast Composition: There are scattered areas of fibroglandular density. There are no dominant masses or suspicious calcifications. Stable benign-appearing bilateral axillary lymph nodes. No other significant abnormalities are identified. There has been no significant change since the prior study. BI/SCREEN MAMM (CAD) W/SATINDER BILAT IMPRESSION: Stable bilateral screening mammogram. Yearly follow-up mammogram recommended. (A) ASSESSMENT CATEGORY: BIRADS Category 2: Benign. A letter regarding these results will be sent to the patient by the facility within 30 days. Approximately 10% of breast cancers are not detected by mammography. A normal mammogram should not delay biopsy of a clinically suspicious abnormality. [id number] Electronically Signed: Liborio Meier, at 8:24 EST , Service support ,
== END ==
PROVIDERS: PCP Family Medicine; Referring Provider Family Medicine; Visit Provider Family Medicine
DX: Z12.31 Encounter for screening mammogram for malignant neoplasm of breast (principal)
CPT/HCPCS: 77063; 77067

== ENCOUNTER → 2021-09-20 15:49 | Outpatient (CLI) | payer OTHER, SELFPAY ==
--- NOTE | 2021-09-20 15:50 | BI_ITS ---
MAMMOGRAPHY - BILATERAL SCREENING REASON FOR EXAM: Female, 56 years old. Routine annual screening examination. PERTINENT HISTORY: Aunt with breast cancer. TECHNIQUE: Digital bilateral breast satinder (3D mammographic acquisition) in the CC and MLO projections. 2-D mediolateral oblique (MLO) and craniocaudad (CC) views of both breasts were obtained. CAD: Full Field Digital Mammography with Computer Added Detection was performed. COMPARISON: Comparison is made with prior study dated 08/25/2020 and 07/23/2019. FINDINGS: Breast Composition: There are scattered areas of fibroglandular density. There are no dominant masses or suspicious calcifications. Stable benign appearing bilateral axillary No other significant abnormalities are identified. There has been no significant change since the prior study. BI/SCRN MAMM (CAD)W/SATINDER BILAT IMPRESSION: Stable bilateral screening mammogram. Yearly follow-up mammogram recommended. (A) ASSESSMENT CATEGORY: BIRADS Category 2: Benign. A letter regarding these results will be sent to the patient by the facility within 30 days. Approximately 10% of breast cancers are not detected by mammography. A normal mammogram should not delay biopsy of a clinically suspicious abnormality. [id number] Electronically Signed: Liborio Meier MD at 10:40 EST , Service support ,
== END ==
PROVIDERS: PCP Family Medicine; Visit Provider Family Medicine
DX: Z12.31 Encounter for screening mammogram for malignant neoplasm of breast (principal)
CPT/HCPCS: 77063; 77067

== ENCOUNTER → 2021-10-21 | Outpatient (CLI) | payer OTHER, SELFPAY | END | disposition home or self-care (01) | PROVIDERS: PCP Family Medicine; Visit Provider Physician Assistant Medical | DX: Z11.52 Encounter for screening for COVID-19 (principal) | CPT/HCPCS: 87635; U0003; U0005 ==

== ENCOUNTER → 2022-04-21 | Outpatient (CLI) | payer OTHER, SELFPAY ==
[2022-04-21 15:38] LABS: Free T3 2.5 pg/mL (2.18-3.98); T4 Free Direct 1.38 ng/dL (0.76-1.46)
== END | disposition home or self-care (01) ==
LOC: MTLAB 11:51
PROVIDERS: PCP Family Medicine; Referring Provider Family Medicine; Visit Provider Family Medicine
DX: E03.9 Hypothyroidism, unspecified (principal)
CPT/HCPCS: 36415; 84439; 84443; 84481

== ENCOUNTER → 2022-09-29 | Outpatient (CLI) | payer OTHER, SELFPAY ==
--- NOTE | 2022-09-29 16:17 | BI_ITS ---
MAMMOGRAPHY - BILATERAL SCREENING REASON FOR EXAM: Female, 57 years old. Routine annual screening examination. PERTINENT HISTORY: Aunt with breast cancer. TECHNIQUE: Digital bilateral breast satinder (3D mammographic acquisition) in the CC and MLO projections. 2-D mediolateral oblique (MLO) and craniocaudad (CC) views of both breasts were obtained. CAD: Full Field Digital Mammography with Computer Added Detection was performed. COMPARISON: Comparison is made with prior study dated 09/20/2021 and 08/25/2020. FINDINGS: Breast Composition: There are scattered areas of fibroglandular density. There are no dominant masses or suspicious calcifications. Stable small benign-appearing bilateral accident. No other significant abnormalities are identified. There has been no significant change since the prior study. BI/SCRN MAMM (CAD)W/SATINDER BILAT IMPRESSION: Stable bilateral screening mammogram. Yearly follow-up mammogram recommended. (A) ASSESSMENT CATEGORY: BIRADS Category 2: Benign. A letter regarding these results will be sent to the patient by the facility within 30 days. Approximately 10% of breast cancers are not detected by mammography. A normal mammogram should not delay biopsy of a clinically suspicious abnormality. [id number] Electronically Signed: Liborio Meier MD at 8:47 EST ,
== END | disposition home or self-care (01) ==
LOC: OPBI 16:10
PROVIDERS: PCP Family Medicine; Visit Provider Family Medicine
DX: Z12.31 Encounter for screening mammogram for malignant neoplasm of breast (principal); Z80.3 Family history of malignant neoplasm of breast
CPT/HCPCS: 77063; 77067

== ENCOUNTER → 2022-10-20 | Outpatient (CLI) | payer OTHER, SELFPAY ==
[2022-10-20 18:15] LABS: ALB/GLOB Ratio 0.8 RATIO (0.9-2.4); AST(SGOT) 13 U/L (15-37); Alanine Aminotransfer ALT/SGPT 28 U/L (13-56); Albumin, Serum 3.8 g/dL (3.2-5.0); Alkaline Phosphatase 53 U/L (45-117); Anion Gap 2 (5-15); BUN 17 mg/dL (7-18); BUN/Creat Ratio 22.8 RATIO (10-20); Calcium,Total 9.5 mg/dL (8.5-10.1); Chloride 106 mmol/L (98-107); Creatinine, Serum 0.75 mg/dL (0.55-1.02); EST Glomerular Filtration Rate 85 mL/min (>60); Est Glom Filt Rate - Afr Amer 103 mL/min (>60); Free T3 2.3 pg/mL (2.18-3.98); Globulin 4.5 g/dL (2.2-4.2); Glucose 87 mg/dL (74-106); Potassium 4.7 mmol/L (3.5-5.1); Protein, Total 8.3 g/dL (6.4-8.2); Sodium Level 139 mmol/L (136-145); Thyroid Stim Hormone (TSH) 0.54 uIU/mL (0.358-3.74)
== END | disposition home or self-care (01) ==
LOC: BFHLAB 14:44
PROVIDERS: PCP Family Medicine; Visit Provider Family Medicine
DX: E03.9 Hypothyroidism, unspecified (principal); Z51.81 Encounter for therapeutic drug level monitoring
CPT/HCPCS: 36415; 80053; 84439; 84443; 84481

== ENCOUNTER → 2023-06-01 | Outpatient (CLI) | payer OTHER, SELFPAY ==
[2023-06-01 10:34] LABS: Absolute Neutrophil Count 4.4 X10^3/uL (2.0-7.7); Basophil# 0.03 X10^3/uL; Basophil% 0.5 % (0-1); Eosinophil# 0.17 X10^3/uL; Eosinophils% 2.6 % (0-5); Hematocrit 41.5 % (37-47); Hemoglobin 13.2 g/dL (12.0-15.0); Lymphocyte % 23.1 % (19-41); Mean Corp Hgb Conc 31.8 g/dL (32-36); Mean Corpuscular Hgb 27.9 pg (27.0-32.0); Mean Corpuscular Volume 87.7 fL (81-99); Mean Platelet Vol. 9.5 fl (6.2-12.0); Monocyte# 0.37 X10^3/uL; Monocyte% 5.7 % (0-10); NRBC Flagged by Analyzer 0 % (0-5); Neutrophil # 4.39 X10^3/uL (2.7-7.7); Neutrophil % 67.8 % (47-70); Platelet Count 322 K/mm3 (150-450); RBC Distribution Width SD 41.2 fl (35.1-43.9); Red Blood Count 4.73 M/mm3 (4.2-5.4); White Blood Count 6.5 K/mm3 (4.4-11.0)
[2023-06-01 11:09] LABS: ALB/GLOB Ratio 0.9 RATIO (0.9-2.4); AST(SGOT) 11 U/L (15-37); Alanine Aminotransfer ALT/SGPT 19 U/L (13-56); Albumin, Serum 3.8 g/dL (3.2-5.0); Alkaline Phosphatase 52 U/L (45-117); Anion Gap 3 (5-15); BUN 17 mg/dL (7-18); BUN/Creat Ratio 22.5 RATIO (10-20); Calcium,Total 9.4 mg/dL (8.5-10.1); Chloride 106 mmol/L (98-107); Creatinine, Serum 0.75 mg/dL (0.55-1.02); EST Glomerular Filtration Rate 84 mL/min (>60); Est Glom Filt Rate - Afr Amer 101 mL/min (>60); Free T3 2.4 pg/mL (2.18-3.98); Globulin 4.2 g/dL (2.2-4.2); Glucose 84 mg/dL (74-106); Potassium 3.9 mmol/L (3.5-5.1); Sodium Level 138 mmol/L (136-145); T4 Free Direct 1.21 ng/dL (0.76-1.46)
== END | disposition home or self-care (01) ==
LOC: BFHLAB 09:49
PROVIDERS: PCP Family Medicine; Referring Provider Family Medicine; Visit Provider Family Medicine
DX: E03.9 Hypothyroidism, unspecified (principal); Z51.81 Encounter for therapeutic drug level monitoring
CPT/HCPCS: 36415; 80053; 84439; 84443; 84481; 85025

== ENCOUNTER → 2023-10-03 | Outpatient (CLI) | payer OTHER, SELFPAY ==
--- NOTE | 2023-10-03 15:34 | BI_ITS ---
MAMMOGRAPHY - BILATERAL SCREENING REASON FOR EXAM: Female, 58 years old. Routine annual screening examination. PERTINENT HISTORY: Aunt with breast cancer. TECHNIQUE: Digital bilateral breast satinder (3D mammographic acquisition) in the CC and MLO projections. 2-D mediolateral oblique (MLO) and craniocaudad (CC) views of both breasts were obtained. CAD: Full Field Digital Mammography with Computer Added Detection was performed. COMPARISON: Comparison is made with prior study dated September 29, 2002 and September 20, 2021. FINDINGS: Breast Composition: There are scattered areas of fibroglandular density. There are no dominant masses or suspicious calcifications. Stable small benign-appearing right axillary lymph nodes. No other significant abnormalities are identified. There has been no significant change since the prior study. BI/SCRN MAMM (CAD)W/SATINDER BILAT IMPRESSION: Stable bilateral screening mammogram. Yearly follow-up mammogram recommended. (A) ASSESSMENT CATEGORY: BIRADS Category 2: Benign. A letter regarding these results will be sent to the patient by the facility within 30 days. Approximately 10% of breast cancers are not detected by mammography. A normal mammogram should not delay biopsy of a clinically suspicious abnormality. [id number] Electronically Signed: Liborio Meier MD at 9:10 EST ,
== END | disposition home or self-care (01) ==
LOC: OPBI 15:29
PROVIDERS: PCP Family Medicine; Referring Provider Family Medicine; Visit Provider Family Medicine
DX: Z12.31 Encounter for screening mammogram for malignant neoplasm of breast (principal)
CPT/HCPCS: 77063; 77067

== ENCOUNTER → 2024-05-27 | Outpatient (CLI) | payer OTHER, SELFPAY ==
[2024-05-27 17:52] LABS: Absolute Lymphocyte Count 1.33 X10^3/uL (0.83-4.51); Absolute Neutrophil Count 6.9 X10^3/uL (2.0-7.7); Basophil# 0.03 X10^3/uL; Basophil% 0.3 % (0-1); Eosinophil# 0.17 X10^3/uL; Eosinophils% 1.9 % (0-5); Hemoglobin 13.6 g/dL (12.0-15.0); Lymphocyte # 1.33 X10^3/ul (0.83-4.51); Lymphocyte % 14.7 % (19-41); Mean Corp Hgb Conc 32.4 g/dL (32-36); Mean Corpuscular Hgb 27.8 pg (27.0-32.0); Mean Corpuscular Volume 85.7 fL (81-99); Mean Platelet Vol. 9.3 fl (6.2-12.0); Monocyte# 0.56 X10^3/uL; Monocyte% 6.2 % (0-10); NRBC Flagged by Analyzer 0 % (0-5); Neutrophil # 6.92 X10^3/uL (2.7-7.7); Neutrophil % 76.5 % (47-70); Platelet Count 319 K/mm3 (150-450); RBC Distribution Width CV 12.9 % (11.6-14.6); White Blood Count 9.1 K/mm3 (4.4-11.0)
[2024-05-27 18:06] LABS: Vitamin D,25 Hydroxy 61.8 ng/mL
[2024-05-27 18:08] LABS: ALB/GLOB Ratio 0.8 RATIO (0.9-2.4); AST(SGOT) 12 U/L (15-37); Alanine Aminotransfer ALT/SGPT 21 U/L (13-56); Albumin, Serum 3.5 g/dL (3.2-5.0); Alkaline Phosphatase 55 U/L (45-117); Anion Gap 4 (5-15); BUN 18 mg/dL (7-18); BUN/Creat Ratio 23.8 RATIO (10-20); Calcium,Total 9.6 mg/dL (8.5-10.1); Chloride 108 mmol/L (98-107); Cholesterol 133 mg/dL (200); Creatinine, Serum 0.76 mg/dL (0.55-1.02); EST Glomerular Filtration Rate 83 mL/min (>60); Est Glom Filt Rate - Afr Amer 101 mL/min (>60); Free T3 2.2 pg/mL (2.18-3.98); Globulin 4.3 g/dL (2.2-4.2); Glucose 88 mg/dL (74-106); High Density Lipoprotein 56 mg/dL; Potassium 3.9 mmol/L (3.5-5.1); Protein, Total 7.8 g/dL (6.4-8.2); Sodium Level 141 mmol/L (136-145); T4 Free Direct 1.23 ng/dL (0.76-1.46); Thyroid Stim Hormone (TSH) 1.31 uIU/mL (0.358-3.74); Triglycerides 67 mg/dL; Very Low Density Lipoprotein 13 mg/dL (5-40)
== END | disposition home or self-care (01) ==
LOC: MTLAB 15:26
PROVIDERS: PCP Family Medicine; Referring Provider Family Medicine; Visit Provider Family Medicine
DX: Z51.81 Encounter for therapeutic drug level monitoring (principal); E03.9 Hypothyroidism, unspecified; R53.83 Other fatigue; E78.5 Hyperlipidemia, unspecified; E55.9 Vitamin D deficiency, unspecified
CPT/HCPCS: 36415; 80053; 80061; 82306; 84439; 84443; 84481; 85025

== ENCOUNTER → 2024-10-15 | Outpatient (CLI) | payer OTHER, SELFPAY ==
--- NOTE | 2024-10-15 10:40 | BI_ITS ---
MAMMOGRAPHY - BILATERAL SCREENING 3-D TOMOSYNTHESIS REASON FOR EXAM: Female, 59 years old. SCREENING PERTINENT HISTORY: No significant family history. TECHNIQUE: 2-D mammograms and 3-D Tomosynthesis of the breast (s) were performed. CAD was performed. COMPARISON: 10/03/2023 FINDINGS: The breast composition is composed of scattered fibroglandular density. Scattered benign calcifications are seen. No dense spiculated masses or suspicious microcalcifications are identified. No architectural distortion is identified. There is no skin thickening or retraction. There has been no significant change since the prior study. BI/SCRN MAMM (CAD)W/SATINDER BILAT IMPRESSION: No mammographic signs of malignancy. Routine yearly mammograms recommended. ASSESSMENT CATEGORY: BIRADS Category 1: Negative. A letter regarding these results will be sent to the patient by the facility within 30 days. FOLLOW UP RECOMMENDATION: Yearly follow up mammogram recommended. (A) Approximately 10% of breast cancers are not detected by mammography. A normal mammogram should not delay biopsy of a clinically suspicious abnormality. Electronically Signed: Jose Antonio Chavez MD at 15:44 EST ,
== END | disposition home or self-care (01) ==
PROVIDERS: PCP Family Medicine; Referring Provider Family Medicine; Visit Provider Family Medicine
DX: Z12.31 Encounter for screening mammogram for malignant neoplasm of breast (principal)
CPT/HCPCS: 77063; 77067

== ENCOUNTER → 2025-01-15 | Outpatient (CLI) | payer OTHER, SELFPAY ==
[2025-01-15 17:54] LABS: Absolute Lymphocyte Count 1.79 X10^3/uL (0.83-4.51); Absolute Neutrophil Count 6.9 X10^3/uL (2.0-7.7); Basophil# 0.08 X10^3/uL; Basophil% 0.8 % (0-1); Eosinophil# 0.37 X10^3/uL; Eosinophils% 3.8 % (0-5); Hematocrit 43.5 % (37-47); Hemoglobin 14.3 g/dL (12.0-15.0); Lymphocyte # 1.79 X10^3/ul (0.83-4.51); Lymphocyte % 18.4 % (19-41); Mean Corp Hgb Conc 32.9 g/dL (32-36); Mean Corpuscular Hgb 27.9 pg (27.0-32.0); Mean Platelet Vol. 9.4 fl (6.2-12.0); Monocyte% 6.2 % (0-10); NRBC Flagged by Analyzer 0 % (0-5); Neutrophil # 6.87 X10^3/uL (2.7-7.7); Neutrophil % 70.4 % (47-70); Platelet Count 402 K/mm3 (150-450); RBC Distribution Width CV 13.3 % (11.6-14.6); RBC Distribution Width SD 41.7 fl (35.1-43.9); Red Blood Count 5.12 M/mm3 (4.2-5.4); White Blood Count 9.8 K/mm3 (4.4-11.0)
[2025-01-15 19:13] LABS: ALB/GLOB Ratio 1.1 RATIO (0.9-2.4); AST(SGOT) 15 U/L (<=31); Alanine Aminotransfer ALT/SGPT 11 U/L (<=34); Albumin, Serum 4.3 g/dL (3.5-5.0); Alkaline Phosphatase 57 U/L (35-104); Anion Gap 11 (5-15); BUN 29 mg/dL (4-19); BUN/Creat Ratio 38.1 RATIO (10-20); Calcium,Total 9.5 mg/dL (7.6-11.0); Carbon Dioxide 25.1 mmol/L (21.0-32.0); Chloride 103 mmol/L (98-108); Creatinine, Serum 0.75 mg/dL (0.70-1.20); EST Glomerular Filtration Rate 92 (>60); Free T3 2.1 pg/mL (2.18-3.98); Globulin 3.9 g/dL (2.2-4.2); Glucose 95 mg/dL (70-99); Potassium 4.5 mmol/L (3.3-5.1); Protein, Total 8.2 g/dL (5.9-8.4); Sodium Level 139 mmol/L (133-145); Thyroid Stim Hormone (TSH) 0.974 uIU/mL (0.300-4.200); Total Bilirubin 0.19 mg/dL (0.00-1.30)
[2025-01-15 20:46] LABS: Hemoglobin A1c 5.1 % (<=5.6)
== END | disposition home or self-care (01) ==
LOC: BFHLAB 16:04
PROVIDERS: PCP Family Medicine; Visit Provider Family Medicine
DX: E03.9 Hypothyroidism, unspecified (principal); R73.01 Impaired fasting glucose; Z51.81 Encounter for therapeutic drug level monitoring
CPT/HCPCS: 36415; 80053; 83036; 84439; 84443; 84481; 85025

== ENCOUNTER → 2025-03-10 | Outpatient (CLI) | payer OTHER, SELFPAY ==
--- NOTE | 2025-03-10 10:33 | RAD_ITS ---
PROCEDURE: L/S SPINE MIN 4 VIEWS 03/10/2025 REASON FOR EXAM: SCIATICA, LEFT SIDE TECHNIQUE: Four views; AP, bilateral oblique and lateral COMPARISON: None available FINDINGS: 5 [id number] lumbar vertebral body types identified. No fracture or malalignment. There is multilevel mild appearing discogenic and degenerative endplate changes noted. No obvious significant appearing osseous foraminal narrowing identified. No spondylolysis identified. RAD/L/S Spine Min 4 Views IMPRESSION: Multilevel mild appearing spondylosis/discogenic changes. Reading Location: [id number]
== END | disposition home or self-care (01) ==
LOC: MTRAD 10:31
PROVIDERS: PCP Family Medicine; Referring Provider Nurse Practitioner Family; Visit Provider Nurse Practitioner Family
DX: M54.32 Sciatica, left side (principal)
CPT/HCPCS: 72110

== ENCOUNTER → 2025-07-09 | Outpatient (CLI) | payer OTHER, SELFPAY ==
[2025-07-09 18:37] LABS: Free T3 2.5 pg/mL (2.18-3.98)
== END | disposition home or self-care (01) ==
LOC: MTLAB 16:27
PROVIDERS: PCP Family Medicine; Referring Provider Family Medicine; Visit Provider Family Medicine
DX: E03.9 Hypothyroidism, unspecified (principal)
CPT/HCPCS: 36415; 84439; 84443; 84481